=== PATIENT | male | born 1940 | race Caucasian/White ===

== ENCOUNTER 2018-02-08 12:58 | Emergency (ER) | payer MEDICARE, OTHER ==
[2018-02-08] MEDS ORDERED: Sodium Chloride 0.9% 10 ML Syringe FLUSH PRN (13:15)
[2018-02-08] MEDS ORDERED: Sodium Chloride 0.9% 2.5 ML Syringe FLUSH PRN (13:15)
--- NOTE | 2018-02-08 13:35 | EDM.PDOC ---
ED HPI GENERAL MEDICAL PROBLEM - General Chief Complaint: Abdominal Pain Stated Complaint: PAIN IN THE LOWER STOMACHE Time Seen by Provider: 02/08/18 13:05 Source of Information: Reports: Patient History Limitations: Reports: No Limitations - History of Present Illness INITIAL COMMENTS - FREE TEXT/NARRATIVE: HISTORY AND PHYSICAL: History of present illness: Patient is a 77-year-old male here with complaints of left lower abdominal pain that started this morning. He states the pain has since subsided, as he pushes on his left lower quadrant. This really sharp pain when his pressure on it. He reports he's been having to urinate more often today but only having a small amount of urination time. Denies any flank/back pain dysuria, hematuria. He denies any nausea, vomiting, diarrhea, melena, hematochezia, chest pain, shortness of breath. Review of systems: As per history of present illness and below otherwise all systems reviewed and negative. Past medical history: As per history of present illness and as reviewed below otherwise noncontributory. Surgical history: As per history of present illness and as reviewed below otherwise noncontributory. Social history: No reported history of drug or alcohol abuse. Family history: As per history of present illness and as reviewed below otherwise noncontributory. Physical exam: General: Patient sitting comfortably in no acute distress and nontoxic appearing HEENT: Atraumatic, normocephalic, pupils reactive, negative for conjunctival pallor or scleral icterus, mucous membranes moist, throat clear, neck supple, nontender, trachea midline. No meningeal signs. Lungs: Clear to auscultation, breath sounds equal bilaterally, chest nontender. Heart: S1S2, regular, negative for clicks, rubs, or overt murmur. Abdomen: There is a periumbilical hernia noted that is reducible. Tender to palpation of the left lower quadrant with deep palpation. Soft, nondistended. Negative for masses or hepatosplenomegaly. Negative for costovertebral tenderness. Pelvis: Stable nontender. Genitourinary: Deferred. Rectal: Deferred. Extremities: Atraumatic, negative for cords or calf pain. Neurovascular unremarkable. Neuro: Awake, alert, oriented. Cranial nerves II through XII unremarkable. Cerebellum unremarkable. Motor and sensory unremarkable throughout. Exam nonfocal. Notes: Diagnostics: CBC, CMP, Lipase, UA CT abdomen/pelvis Therapeutics: None Prescriptions: Ciprofloxacin 500mg Metronidazole 500mg Impression: Acute diverticulitis Plan: 1. Take antibiotics as directed. Tylenol or motrin as needed for pain. 2. Follow up with primary care provider 3. Return to ED as needed as discussed. Definitive disposition and diagnosis as appropriate pending reevaluation and review of above. Left Abdominal Pain Score (Numeric/FACES): 8 - Related Data Allergies Allergy/AdvReac Type Severity Reaction Status Date / Time No Known Allergies Allergy Verified 02/08/18 13:15 Home Meds: Home Meds Aspirin/Calcium Carbonate/Mag [Aspirin Buffered 325 mg Tab] 325 mg PO DAILY [History] Ciprofloxacin HCl [Cipro] 500 mg PO BID 10 Days #20 tablet 02/08/18 [Rx] metroNIDAZOLE [Metronidazole] 500 mg PO Q8H 10 Days #30 tablet 02/08/18 [Rx] Past Medical History - Past Health History Medical/Surgical History: Denies Medical/Surgical History - Infectious Disease History Infectious Disease History: Reports: None - Past Surgical History GI Surgical History: Reports: Appendectomy Other GI Surgeries/Procedures: 50+ years ago. Musculoskeletal Surgical History: Reports: Knee Replacement Social & Family History - Family History Family Medical History: Noncontributory - Tobacco Use Smoking Status *Q: Former Smoker Years of Tobacco use: 50 Used Tobacco, but Quit: Yes Month/Year Tobacco Last Used: 2012 - Caffeine Use Caffeine Use: Reports: None - Recreational Drug Use Recreational Drug Use: No ED ROS GENERAL - Review of Systems Review Of Systems: ROS reveals no pertinent complaints other than HPI. ED EXAM, GI/ABD - Physical Exam Exam: See Below (see dictation) Course - Vital Signs Last Recorded V/S: Last Vital Signs Temp 37.0 C 02/08/18 13:16 Pulse 73 02/08/18 14:48 Resp 18 02/08/18 14:48 BP 115/43 L 02/08/18 14:48 Pulse Ox 96 02/08/18 14:48 - Orders/Labs/Meds Orders: Active Orders 24 hr Category Date Time Status UA W/MICROSCOPIC [URIN] Stat Lab 02/08/18 13:30 Ordered Sodium Chloride 0.9% [Saline Flush] Med 02/08/18 13:15 Active 10 ml FLUSH ASDIRECTED PRN Sodium Chloride 0.9% [Saline Flush] Med 02/08/18 13:15 Active 2.5 ml FLUSH ASDIRECTED PRN Saline Lock Insert [OM.PC] Stat Oth 02/08/18 13:15 Ordered Medication Orders Sodium Chloride (Saline Flush) 10 ml FLUSH ASDIRECTED PRN PRN Reason: Keep Vein Open Last Admin: 02/08/18 13:40 Dose: 10 ml Sodium Chloride (Saline Flush) 2.5 ml FLUSH ASDIRECTED PRN PRN Reason: Keep Vein Open Last Admin: 02/08/18 13:40 Dose: 2.5 ml Labs: Laboratory Tests 02/08/18 02/08/18 02/08/18 Range/Units 13:30 13:42 13:42 WBC 12.67 H (4.0-11.0) K/uL RBC 4.56 (4.50-5.90) M/uL Hgb 14.9 (13.0-17.0) g/dL Hct 43.1 (38.0-50.0) % MCV 94.5 (80.0-98.0) fL MCH 32.7 H (27.0-32.0) pg MCHC 34.6 (31.0-37.0) g/dL RDW Std Deviation 45.5 (28.0-62.0) fl RDW Coeff of Ken 13 (11.0-15.0) % Plt Count 197 (150-400) K/uL MPV 9.40 (7.40-12.00) fL Neut % (Auto) 73.4 (48.0-80.0) % Lymph % (Auto) 13.1 L (16.0-40.0) % [place] % (Auto) 11.4 (0.0-15.0) % Eos % (Auto) 1.9 (0.0-7.0) % Baso % (Auto) 0.2 (0.0-1.5) % Neut # (Auto) 9.3 H (1.4-5.7) K/uL Lymph # (Auto) 1.7 (0.6-2.4) K/uL [place] # (Auto) 1.4 H (0.0-0.8) K/uL Eos # (Auto) 0.2 (0.0-0.7) K/uL Baso # (Auto) 0.0 (0.0-0.1) K/uL Nucleated RBC % 0.0 /100WBC Nucleated RBCs # 0 K/uL Sodium 135 L (136-148) mmol/L Potassium 4.3 (3.5-5.1) mmol/L Chloride 102 (98-107) mmol/L Carbon Dioxide 28.9 (21.0-32.0) mmol/L BUN 28 H (7.0-18.0) mg/dL Creatinine 2.0 H (0.8-1.3) mg/dL Est Cr Clr Drug Dosing 26.91 mL/min Estimated GFR (MDRD) 32.6 ml/min Glucose 96 (74-106) mg/dL Calcium 8.9 (8.5-10.1) mg/dL Total Bilirubin 1.0 (0.2-1.0) mg/dL AST 11 L (15-37) IU/L ALT 19 (14-63) IU/L Alkaline Phosphatase 60 (46-116) U/L Total Protein 7.6 (6.4-8.2) g/dL Albumin 3.8 (3.4-5.0) g/dL Globulin 3.8 H (2.0-3.5) g/dL Albumin/Globulin Ratio 1.0 L (1.3-2.8) Lipase 201 (73-393) U/L Urine Color YELLOW Urine Appearance CLEAR Urine pH 6.0 (5.0-8.0) Ur Specific [place] 1.020 (1.001-1.035) Urine Protein NEGATIVE (NEGATIVE) mg/dL Urine Glucose (UA) NEGATIVE (NEGATIVE) mg/dL Urine Ketones NEGATIVE (NEGATIVE) mg/dL Urine Occult Blood NEGATIVE (NEGATIVE) Urine Nitrite NEGATIVE (NEGATIVE) Urine Bilirubin NEGATIVE (NEGATIVE) Urine Urobilinogen 0.2 (<2.0) EU/dL Ur Leukocyte Esterase NEGATIVE (NEGATIVE) Urine RBC 1-2 (0-2/HPF) Urine WBC 3-5 (0-5/HPF) Ur Epithelial Cells OCCASIONAL (NONE-FEW) Urine Bacteria RARE (NEGATIVE) Meds: Medications Generic Name Dose Route Start Last Admin Trade Name Freq PRN Reason Stop Dose Admin Sodium Chloride 10 ml 02/08/18 13:15 02/08/18 13:40 Saline Flush FLUSH 10 ml ASDIRECTED PRN Administration Keep Vein Open Sodium Chloride 2.5 ml 02/08/18 13:15 02/08/18 13:40 Saline Flush FLUSH 2.5 ml ASDIRECTED PRN Administration Keep Vein Open Departure - Departure Time of Disposition: 15:08 Disposition: Home, Self-Care 01 Condition: Good Clinical Impression: Acute diverticulitis - Discharge Information Referrals: PCP,None [Primary Care Provider] - Forms: ED Department Discharge Additional Instructions: The following information is given to patients seen in the emergency department who are being discharged to home. This information is to outline your options for follow-up care. We provide all patients seen in our emergency department with a follow-up referral. The need for follow-up, as well as the timing and circumstances, are variable depending upon the specifics of your emergency department visit. If you don't have a primary care physician on staff, we will provide you with a referral. We always advise you to contact your personal physician following an emergency department visit to inform them of the circumstance of the visit and for follow-up with them and/or the need for any referrals to a consulting specialist. The emergency department will also refer you to a specialist when appropriate. This referral assures that you have the opportunity for follow-up care with a specialist. All of these measure are taken in an effort to provide you with optimal care, which includes your follow-up. Under all circumstances we always encourage you to contact your private physician who remains a resource for coordinating your care. When calling for follow-up care, please make the office aware that this follow-up is from your recent emergency room visit. If for any reason you are refused follow-up, please contact the Emergency Department at and asked to speak to the emergency department charge nurse. Primary Care [address] [place] [id number] 1. Take antibiotics as directed. Tylenol or motrin as needed for pain. 2. Follow up with primary care provider 3. Return to ED as needed as discussed. - My Orders Last 24 Hours: My Active Orders 02/08/18 13:15 Sodium Chloride 0.9% [Saline Flush] 10 ml FLUSH ASDIRECTED PRN Sodium Chloride 0.9% [Saline Flush] 2.5 ml FLUSH ASDIRECTED PRN Saline Lock Insert [OM.PC] Stat 02/08/18 13:30 UA W/MICROSCOPIC [URIN] Stat - Assessment/Plan Last 24 Hours: My Active Orders 02/08/18 13:15 Sodium Chloride 0.9% [Saline Flush] 10 ml FLUSH ASDIRECTED PRN Sodium Chloride 0.9% [Saline Flush] 2.5 ml FLUSH ASDIRECTED PRN Saline Lock Insert [OM.PC] Stat 02/08/18 13:30 UA W/MICROSCOPIC [URIN] Stat
[2018-02-08 14:50] VITALS: BP 115/43
--- NOTE | 2018-02-08 14:58 | CT ---
CT of the abdomen and pelvis without contrast. HISTORY: Pain TECHNIQUE: Axial CT images were obtained of the abdomen and pelvis without contrast. Coronal and sagi ttal reconstructions obtained. FINDINGS: The lung bases are clear, no pleural effusion. Mild coronary artery calcifications. The liver, spleen, adrenal glands, and pancreas appear unremarkable for noncontrast examination. The gallbladder appears normal. There is no bulky retroperitoneal lymphadenopathy. No abdominal ascites. Renal cortical cysts are noted bilaterally. There is a nonobstructing 4 mm stone within the left kidn ey. The large and small bowel are normal in caliber without evidence of obstruction. Diverticulosis is no shena with stranding adjacent to the sigmoid colon. There is no bulky pelvic lymphadenopathy. No free f luid. No free air. The urinary bladder appears normal. Tiny fat-containing umbilical hernia. The visualized osseous structures appear normal. IMPRESSION: 1. Sigmoid diverticulitis. 2. Nonobstructing left nephrolithiasis.
== END 2018-02-08 15:15 | disposition home or self-care (01) ==
LOC: MW.ED 12:58
DX: K57.92 Diverticulitis of intestine, part unspecified, without perforation or abscess without bleeding (principal); Z79.82 Long term (current) use of aspirin; Z87.891 Personal history of nicotine dependence
CPT/HCPCS: 36415; 74176; 74176-26; 80053; 81001; 83690; 85025; 99283-25

== ENCOUNTER 2020-11-23 16:48 | Inpatient (IN) | payer MEDICARE, OTHER ==
[2020-11-23] MEDS ORDERED: traMADol 50 MG Tab PO ONE (17:11)
--- NOTE | 2020-11-23 17:36 | EDM.PDOC ---
ED HPI GENERAL MEDICAL PROBLEM - General Chief Complaint: General Stated Complaint: FALL Time Seen by Provider: 11/23/20 16:51 Source of Information: Reports: Patient, Family History Limitations: Reports: No Limitations - History of Present Illness INITIAL COMMENTS - FREE TEXT/NARRATIVE: HISTORY AND PHYSICAL: History of present illness: Patient is an 80-year-old male who presents to the emergency room with complaints of left chest wall pain and bilateral shoulder pain post fall. Patient does live home alone. He states he became unbalanced and fell, hitting his left shoulder on the wall, became even more unsteady and then fell down to the ground. He denies hitting his head or having any loss of consciousness. He states he laid on the ground for 15 to 20 minutes as he was so short of breath from hitting his left chest wall that he could not get up. Once he was able to get up he was able to call his daughter who brought him here to the emergency room. Patient denies any fever, chills, headache, change in vision, syncope or near syncope. Denies any chest pain, back pain, shortness of breath or cough. Denies any abdominal pain, nausea, vomiting, diarrhea, constipation or dysuria. Has not noted any blood in urine or stool. Patient has been eating and drinking appropriately. Review of systems: As per history of present illness and below otherwise all systems reviewed and negative. Past medical history: As per history of present illness and as reviewed below otherwise noncontributory. Surgical history: As per history of present illness and as reviewed below otherwise noncontributory. Social history: See social history for further information Family history: As per history of present illness and as reviewed below otherwise noncontributory. Physical exam: General: Well developed and well nourished. Alert and orientated x 3. Nontoxic in appearance and in no acute distress. Blood pressure is elevated but will continue to monitor. Nursing notes were reviewed. HEENT: Nontender, no obvious injury noted, normocephalic, pupils equal and reactive bilaterally, negative for conjunctival pallor or scleral icterus, mucous membranes moist, TMs normal bilaterally, throat clear, neck supple, nontender, trachea midline. No drooling or trismus noted. No meningeal signs. No hot potato voice noted. Lungs: Clear to auscultation bilaterally. No wheezes, rales, or rhonchi. Chest tender to the left anterior and lateral chest wall. Normal work of breathing, no accessory muscles used. Heart: S1S2, regular rate and rhythm without overt murmur, gallops, or rubs. No JVD. No peripheral edema Abdomen: Soft, nondistended, nontender. Normoactive bowel sounds. Negative for masses or costovertebral tenderness. Pelvis: Stable nontender. C-spine/Back: No pinpoint vertebral tenderness upon palpation. No crepitus, step-offs or obvious deformities. Patient is ambulatory from wheelchair to cot without difficulty or deficit, normal variance of needing assistance or walker. Able to rock back on heels and walk on toes. Denies any urinary or fecal incontinence. Denies any numbness, tingling or saddle paresthesia. No concerns of serious infection, fracture or cord compression, or cauda equina syndrome. Deep tendon reflexes brisk bilaterally. Skin: Intact, warm, dry. No lesions or rashes noted. Hematologic: No petechiae or purpra. Mucosa appropriate color and normal nail bed color and refill. Extremities: Pain with palpation of bilateral shoulder girdle. He moves all extremities per self without difficulty or deficits, negative for cords or calf pain. Strong pedal, pretibial and radial pulses bilaterally. +CMS throughout. Neurovascular unremarkable. Neuro: Awake, alert, oriented. Cranial nerves II through XII unremarkable. Cerebellum unremarkable. Motor and sensory unremarkable throughout. Exam nonfocal. Psychiatric: Mood and affect are appropriate. Normal thought process. Answering questions appropriately. Notes: *This patient was seen and evaluated during the 2019 SARS-CoV-2 novel coronavirus pandemic period. Community viral transmission is ongoing at time of this encounter and the emergency department is operating under pandemic response procedures. Patient is an 80-year-old male who presents to the emergency room after a fall with complaints of left rib pain and bilateral shoulder pain. During my physical exam he has tenderness with palpation of bilateral shoulder girdles although has full range of motion. He states he does have chronic shoulder pain although feels that it is worse after the fall. He also has left lateral and anterior chest wall pain with palpation, deep breathing and movement. He is concerned he has fractured ribs. Events leading up to the fall, during the fall and after the fall he states he did not have any chest pain, states he became unbalanced resulting in the fall. Please note that the patient does live alone, he does require assistance x2 to get up from the wheelchair although has good balance and ambulation some once he is up. States he feels unsteady on his feet. He is agreeable to basic lab work, EKG and imaging at this time. Chest x-ray shows no displaced left rib fractures. Lungs are clear. No infiltrate, pleural effusion or pneumothorax is identified. Left and right shoulder are unremarkable, degenerative changes are identified. Head CT shows diffuse volume loss. Changes of chronic small vessel ischemia. Patient does have slightly elevated BUN/creatinine. Pain has improved with the oral tramadol. I have talked with the patient about today's findings, in addition to providing specific details for plan of care. Reassessment at the time of disposition demonstrates that the patient is in no acute distress. The daughter at bedside and patient states they are uncomfortable with being discharged home as he has an managed pain with any type of movement involving the torso. Dr Hamilton, hospitalist on-call was made aware of the patient and is agreeable to keeping him for observation. Due to the unclear statement of how or why the patient fell we will place him on telemetry. Diagnostics: Head CT, Rib x-ray, bilateral shoulder Therapeutics: Tramadol, NS 500ml bolus then TKO Impression: Fall Rib contusion Hypertension Plan: Observation admission Definitive disposition and diagnosis as appropriate pending reevaluation and review of above. left ribs/shoulder Pain Score (Numeric/FACES): 9 - Related Data Allergies Allergy/AdvReac Type Severity Reaction Status Date / Time No Known Allergies Allergy Verified 11/23/20 17:04 Home Meds: Home Meds Ibuprofen [Advil] 1 tab PO ASDIRECTED PRN 11/23/20 [History] Past Medical History - Past Health History Medical/Surgical History: Denies Medical/Surgical History HEENT History: Reports: None Cardiovascular History: Reports: None Respiratory History: Reports: None Gastrointestinal History: Reports: None Genitourinary History: Reports: None Musculoskeletal History: Reports: None Neurological History: Reports: None Psychiatric History: Reports: None Endocrine/Metabolic History: Reports: None Hematologic History: Reports: None Immunologic History: Reports: None Oncologic (Cancer) History: Reports: None Dermatologic History: Reports: None - Infectious Disease History Infectious Disease History: Reports: None - Past Surgical History HEENT Surgical History: Reports: None Cardiovascular Surgical History: Reports: None Respiratory Surgical History: Reports: None GI Surgical History: Reports: Appendectomy Other GI Surgeries/Procedures: 50+ years ago. Male Surgical History: Reports: None Endocrine Surgical History: Reports: None Neurological Surgical History: Reports: None Musculoskeletal Surgical History: Reports: Other (See Below) Other Musculoskeletal Surgeries/Procedures:: knee scope Oncologic Surgical History: Reports: None Dermatological Surgical History: Reports: None Social & Family History - Family History Family Medical History: No Pertinent Family History - Tobacco Use Tobacco Use Status *Q: Former Tobacco User Used Tobacco, but Quit: Yes Month/Year Tobacco Last Used: 30 - Caffeine Use Caffeine Use: Reports: None - Recreational Drug Use Recreational Drug Use: No ED ROS GENERAL - Review of Systems Review Of Systems: Comprehensive ROS is negative, except as noted in HPI. ED EXAM, GENERAL - Physical Exam Exam: See Below (See dictation) Course - Vital Signs Last Recorded V/S: Last Vital Signs Temp 97.1 F 11/23/20 17:06 Pulse 102 H 11/23/20 19:39 Resp 16 11/23/20 19:39 BP 171/108 H 11/23/20 19:39 Pulse Ox 93 L 11/23/20 19:39 - Orders/Labs/Meds Orders: Active Orders 24 hr Category Date Time Status EKG Documentation Completion [RC] STAT Care 11/23/20 17:02 Active Medication Orders Acetaminophen (Acetaminophen 325 Mg Tab) 650 mg PO Q4H PRN PRN Reason: Pain (Mild 1-3)/fever Albuterol/Ipratropium (Albuterol/Ipratropium 3.0-0.5 Mg/3 Ml Neb Soln) 3 ml NEB Q4HRRT PRN PRN Reason: Shortness Of Breath/wheezing Amlodipine Besylate (Amlodipine 5 Mg Tab) 5 mg PO DAILY EDU Sodium Chloride (Normal Saline) 1,000 mls @ 999 mls/hr IV STAT ONE Stop: 11/23/20 20:40 Lactated Ringer's (Ringers, Lactated) 1,000 mls @ 125 mls/hr IV ASDIRECTED EDU Ondansetron HCl (Ondansetron 4 Mg/2 Ml Sdv) 4 mg IVPUSH Q4H PRN PRN Reason: Nausea/Vomiting Labs: Laboratory Tests 11/23/20 11/23/20 11/23/20 Range/Units 17:14 17:14 19:13 WBC 12.51 H (4.0-11.0) K/uL RBC 4.56 (4.50-5.90) M/uL Hgb 14.7 (13.0-17.0) g/dL Hct 44.0 (38.0-50.0) % MCV 96.5 (80.0-98.0) fL MCH 32.2 H (27.0-32.0) pg MCHC 33.4 (31.0-37.0) g/dL RDW Std Deviation 48.5 (28.0-62.0) fl RDW Coeff of Ken 14 (11.0-15.0) % Plt Count 215 (150-400) K/uL MPV 9.60 (7.40-12.00) fL Neut % (Auto) 81.0 H (48.0-80.0) % Lymph % (Auto) 9.5 L (16.0-40.0) % [place] % (Auto) 8.2 (0.0-15.0) % Eos % (Auto) 1.1 (0.0-7.0) % Baso % (Auto) 0.2 (0.0-1.5) % Neut # (Auto) 10.1 H (1.4-5.7) K/uL Lymph # (Auto) 1.2 (0.6-2.4) K/uL [place] # (Auto) 1.0 H (0.0-0.8) K/uL Eos # (Auto) 0.1 (0.0-0.7) K/uL Baso # (Auto) 0.0 (0.0-0.1) K/uL Sodium 141 (136-148) mmol/L Potassium 4.2 (3.5-5.1) mmol/L Chloride 106 (98-107) mmol/L Carbon Dioxide 27.5 (21.0-32.0) mmol/L BUN 27 H (7.0-18.0) mg/dL Creatinine 2.0 H (0.8-1.3) mg/dL Est Cr Clr Drug Dosing 25.63 mL/min Estimated GFR (MDRD) 32.3 ml/min Glucose 143 H (74-106) mg/dL Calcium 9.5 (8.5-10.1) mg/dL Total Bilirubin 0.4 (0.2-1.0) mg/dL AST 17 (15-37) IU/L ALT 18 (14-63) IU/L Alkaline Phosphatase 68 (46-116) U/L Troponin I < 0.050 (0.000-0.056) ng/mL Total Protein 7.4 (6.4-8.2) g/dL Albumin 3.9 (3.4-5.0) g/dL Globulin 3.5 (2.6-4.0) g/dL Albumin/Globulin Ratio 1.1 (0.9-1.6) SARS-CoV-2 RNA ([facility]LALI) NEGATIVE (NEGATIVE) Meds: Medications Generic Name Dose Route Start Last Admin Trade Name [place] PRN Reason Stop Dose Admin Acetaminophen 650 mg 11/23/20 19:47 Acetaminophen 325 Mg Tab PO Q4H PRN Pain (Mild 1-3)/fever Albuterol/Ipratropium 3 ml 11/23/20 19:47 Albuterol/Ipratropium 3.0-0.5 Mg/3 Ml Neb Soln NEB Q4HRRT PRN Shortness Of Breath/wheezing Amlodipine Besylate 5 mg 11/23/20 20:00 Amlodipine 5 Mg Tab PO DAILY [facility] Sodium Chloride 1,000 mls @ 999 mls/hr 11/23/20 19:40 Normal Saline IV 11/23/20 20:40 STAT ONE Lactated Ringer's 1,000 mls @ 125 mls/hr 11/23/20 20:00 Ringers, Lactated IV ASDIRECTED [facility] Ondansetron HCl 4 mg 11/23/20 19:47 Ondansetron 4 Mg/2 Ml Sdv IVPUSH Q4H PRN Nausea/Vomiting Discontinued Medications Generic Name Dose Route Start Last Admin Trade Name Freq PRN Reason Stop Dose Admin Ketorolac Tromethamine 30 mg 11/23/20 19:46 Ketorolac 30 Mg/Ml Sdv IVPUSH 11/23/20 19:47 ONETIME ONE Tramadol HCl 50 mg 11/23/20 17:11 11/23/20 17:50 Tramadol 50 Mg Tab PO 11/23/20 17:12 50 mg ONETIME ONE Administration Departure - Departure Time of Disposition: 20:18 Disposition: Refer to Observation Clinical Impression: Fall Qualifiers: Encounter type: initial encounter Qualified Code(s): W19.XXXA - Unspecified fall, initial encounter Contusion of rib on left side Qualifiers: Encounter type: initial encounter Qualified Code(s): S20.212A - Contusion of left front wall of thorax, initial encounter Hypertension Qualifiers: Hypertension type: unspecified Qualified Code(s): I10 - Essential (primary) hypertension - Discharge Information Sepsis Event Note (ED) - Evaluation Sepsis Screening Result: No Definite Risk - Focused Exam Vital Signs: Vital Signs Temp Pulse Resp BP Pulse Ox 11/23/20 17:06 97.1 F 73 18 198/112 H 95 - My Orders Last 24 Hours: My Active Orders 11/23/20 17:02 EKG Documentation Completion [RC] STAT - Assessment/Plan Last 24 Hours: My Active Orders 11/23/20 17:02 EKG Documentation Completion [RC] STAT
[2020-11-23 17:40] LABS: BLOOD UREA NITROGEN,BUN 27 mg/dL (7.0-18.0); CARBON DIOXIDE,CO2 27.5 mmol/L (21.0-32.0); CHLORIDE,CL 106 mmol/L (98-107); GLUCOSE RANDOM 143 mg/dL (74-106); POTASSIUM,K 4.2 mmol/L (3.5-5.1); SODIUM,NA 141 mmol/L (136-148)
--- NOTE | 2020-11-23 18:41 | CR ---
Indication: Fall. Shoulder pain. Technique: Two views of the left shoulder. Comparison: None Findings: The humeral head is seated within the glenoid. Degenerative changes are identified. No fracture or subluxation is identified. Impression: Degenerative change. Dictated by Rachna Costa MD @ 11/23/2020 6:40:[address] Rachna Costa @ Nov 23 2020 6:40PM
--- NOTE | 2020-11-23 18:41 | CR ---
Indication: Left-sided rib pain. Technique: AP portable view of the chest. Two views of the left ribs. Comparison: None Findings: The heart is normal in size. The lungs are clear. No infiltrate, pleural effusion, or pneumothorax is identified. No displaced left rib fractures are identified. Impression: No displaced left rib fractures. No acute cardiopulmonary process Dictated by Rachna Costa MD @ 11/23/2020 6:39:[address] Rachna Costa @ Nov 23 2020 6:39PM
--- NOTE | 2020-11-23 18:42 | CR ---
Indication: Right shoulder pain. Technique: Two views of the right shoulder. Comparison: None Findings: The humeral head is seated within the glenoid. Degenerative changes are identified at the acromioclavicular and glenohumeral joint spaces. No fracture or subluxation is identified. Impression: Degenerative change. Dictated by Rachna Costa MD @ 11/23/2020 6:40:[address] Rachna Costa @ Nov 23 2020 6:40PM
--- NOTE | 2020-11-23 19:15 | CT ---
Indication: Fell to the ground. Near-syncope. Technique: Multiple contiguous axial images were obtained from the skullbase to the vertex without intravenous contrast enhancement. Please note that all CT scans at this facility use dose modulation, iterative reconstruction, and/or weight-based dosing when appropriate to reduce radiation dose to as low as reasonably achievable. Comparison: None Findings: Ventricles are enlarged consistent with the sizes sulci. Confluent areas of low attenuation identified within the periventricular white matter. No intra-axial or extra-axial hemorrhage is identified. No mass, mass effect, or midline shift is seen. The bony calvarium is intact. The visualized paranasal sinuses and mastoid air cells are clear. Impression: Diffuse volume loss. Changes of chronic small vessel ischemia. Please note that all CT scans at this facility use dose modulation, iterative reconstruction, and/or weight-based dosing when appropriate to reduce radiation dose to as low as reasonably achievable. Dictated by Rachna Costa MD @ 11/23/2020 7:14:[address] Rachna Costa @ Nov 23 2020 7:14PM
[2020-11-23] MEDS ORDERED: Sodium Chloride 0.9% 1,000 ML IV ONE (19:40)
[2020-11-23] MEDS ORDERED: Ketorolac 30 MG/ML SDV IVPUSH ONE (19:46)
[2020-11-23] MEDS ORDERED: Albuterol/Ipratropium 3.0-0.5 MG/3 ML Neb Soln NEB PRN (19:47)
[2020-11-23] MEDS ORDERED: Ondansetron 4 MG/2 ML SDV IVPUSH PRN (19:47)
--- NOTE | 2020-11-23 20:12 | PCM.HP.2 ---
H&P History of Present Illness - General Date of Service: 11/23/20 Admit Problem/Dx: Admission Diagnosis/Problem Admission Diagnosis/Problem Fall - History of Present Illness Initial Comments - Free Text/Narative: Patient is an 80-year-old male with past medical history of CKD, recent history of cataract surgery 3 days back in his right eye, who presents to the emergency room with complaints of left upper back pain and bilateral shoulder pain post fall. Patient states that he was unsteady on his feet and as a result he lost his balance and fell against a wall and then fell to the ground. Patient states that he could not call for help because his phone was not working. Patient not exactly sure at what time he fell and if he fell today or yesterday, seems to be slightly confused but otherwise is alert awake. Patient states that he underwent cataract surgery 3 days back and he has not had really much to eat or drink since last 2 days. Patient lives alone by himself. Patient was eventually brought to the ER by his daughter. Patient denied any chest pain shortness of breath Patient denies any fever, chills, headache, change in vision, syncope or near syncope. Denies any abdominal pain, nausea, vomiting, diarrhea, constipation or dysuria. Has not noted any blood in urine or stool. In the ER x-ray of the chest and shoulders was performed which did not show any acute fractures. CT of the head was negative for any intracranial bleed as well. Patient continued to have pain and was not comfortable going home by himself and was admitted for further management. left ribs/shoulder Pain Score (Numeric/FACES): 9 - Related Data Allergies/Adverse Reactions: Allergies Allergy/AdvReac Type Severity Reaction Status Date / Time No Known Allergies Allergy Verified 11/23/20 21:41 Home Medications: Home Meds Ibuprofen [Advil] 1 tab PO ASDIRECTED PRN 11/23/20 [History] Past Medical History - Past Health History Medical/Surgical History: Denies Medical/Surgical History HEENT History: Reports: None Cardiovascular History: Reports: None Respiratory History: Reports: None Gastrointestinal History: Reports: None Genitourinary History: Reports: None Musculoskeletal History: Reports: None Neurological History: Reports: None Psychiatric History: Reports: None Endocrine/Metabolic History: Reports: None Hematologic History: Reports: None Immunologic History: Reports: None Oncologic (Cancer) History: Reports: None Dermatologic History: Reports: None - Infectious Disease History Infectious Disease History: Reports: None - Past Surgical History HEENT Surgical History: Reports: None Cardiovascular Surgical History: Reports: None Respiratory Surgical History: Reports: None GI Surgical History: Reports: Appendectomy Other GI Surgeries/Procedures: 50+ years ago. Male Surgical History: Reports: None Endocrine Surgical History: Reports: None Neurological Surgical History: Reports: None Musculoskeletal Surgical History: Reports: Other (See Below) Other Musculoskeletal Surgeries/Procedures:: knee scope Oncologic Surgical History: Reports: None Dermatological Surgical History: Reports: None Social & Family History - Family History Family Medical History: No Pertinent Family History - Tobacco Use Tobacco Use Status *Q: Former Tobacco User Used Tobacco, but Quit: Yes Month/Year Tobacco Last Used: 30 - Caffeine Use Caffeine Use: Reports: None - Recreational Drug Use Recreational Drug Use: No H&P Review of Systems - Review of Systems: Review Of Systems: See Below General: Reports: Malaise, Weakness, Fatigue. Denies: Fever, Chills Pulmonary: Denies: Shortness of Breath, Wheezing, Pleuritic Chest Pain Cardiovascular: Reports: Lightheadedness. Denies: Chest Pain, Palpitations, Dyspnea on Exertion, Syncope, Claudication Gastrointestinal: Denies: Abdominal Pain, Anorexia, Black Stool, Bloody Stool, Diarrhea, Decreased Appetite, Difficulty Swallowing, Hematemesis, Hematochezia Genitourinary: Denies: Dysuria, Frequency, Burning Musculoskeletal: Denies: Neck Pain, Shoulder Pain, Arm Pain Skin: Reports: Dryness. Denies: Cyanosis, Jaundice Exam - Exam Exam: See Below - Vital Signs Vital Signs: Last Vital Signs Temp 36.2 C 11/23/20 17:06 Pulse 102 H 11/23/20 19:39 Resp 16 11/23/20 19:39 BP 171/108 H 11/23/20 19:39 Pulse Ox 93 L 11/23/20 19:39 Weight: 71.214 kg - Exam General: Alert, Oriented Neck: Supple, Trachea Midline Lungs: Clear to Auscultation Cardiovascular: Regular Rate, Regular Rhythm, Normal S1, Normal S2 GI/Abdominal Exam: Normal Bowel Sounds, Soft, Non-Tender - Patient Data Lab Results Last 24 hrs: Laboratory Results - last 24 hr 11/23/20 11/23/20 11/23/20 Range/Units 17:14 17:14 19:13 WBC 12.51 H (4.0-11.0) K/uL RBC 4.56 (4.50-5.90) M/uL Hgb 14.7 (13.0-17.0) g/dL Hct 44.0 (38.0-50.0) % MCV 96.5 (80.0-98.0) fL MCH 32.2 H (27.0-32.0) pg MCHC 33.4 (31.0-37.0) g/dL RDW Std Deviation 48.5 (28.0-62.0) fl RDW Coeff of Ken 14 (11.0-15.0) % Plt Count 215 (150-400) K/uL MPV 9.60 (7.40-12.00) fL Neut % (Auto) 81.0 H (48.0-80.0) % Lymph % (Auto) 9.5 L (16.0-40.0) % Barber % (Auto) 8.2 (0.0-15.0) % Eos % (Auto) 1.1 (0.0-7.0) % Baso % (Auto) 0.2 (0.0-1.5) % Neut # (Auto) 10.1 H (1.4-5.7) K/uL Lymph # (Auto) 1.2 (0.6-2.4) K/uL Barber # (Auto) 1.0 H (0.0-0.8) K/uL Eos # (Auto) 0.1 (0.0-0.7) K/uL Baso # (Auto) 0.0 (0.0-0.1) K/uL Sodium 141 (136-148) mmol/L Potassium 4.2 (3.5-5.1) mmol/L Chloride 106 (98-107) mmol/L Carbon Dioxide 27.5 (21.0-32.0) mmol/L BUN 27 H (7.0-18.0) mg/dL Creatinine 2.0 H (0.8-1.3) mg/dL Est Cr Clr Drug Dosing 25.63 mL/min Estimated GFR (MDRD) 32.3 ml/min Glucose 143 H (74-106) mg/dL Calcium 9.5 (8.5-10.1) mg/dL Total Bilirubin 0.4 (0.2-1.0) mg/dL AST 17 (15-37) IU/L ALT 18 (14-63) IU/L Alkaline Phosphatase 68 (46-116) U/L Troponin I < 0.050 (0.000-0.056) ng/mL Total Protein 7.4 (6.4-8.2) g/dL Albumin 3.9 (3.4-5.0) g/dL Globulin 3.5 (2.6-4.0) g/dL Albumin/Globulin Ratio 1.1 (0.9-1.6) SARS-CoV-2 RNA (CITLALI) NEGATIVE (NEGATIVE) Result Diagrams: 11/23/20 17:14 11/23/20 17:14 Sepsis Event Note - Evaluation Sepsis Screening Result: No Definite Risk - Focused Exam Vital Signs: Vital Signs Temp Pulse Resp BP Pulse Ox 11/23/20 19:39 102 H 16 171/108 H 93 L 11/23/20 17:06 36.2 C 73 18 198/112 H 95 - Problem List (1) Contusion of rib on left side SNOMED Code(s): 828687049 ICD Code: S20.212A - CONTUSION OF LEFT FRONT WALL OF THORAX, INITIAL ENCOUNTER Status: Acute Current Visit: Yes Qualifiers: Encounter type: initial encounter Qualified Code(s): S20.212A - Contusion of left front wall of thorax, initial encounter (2) Fall SNOMED Code(s): 5096752, 517586768 ICD Code: W19.XXXA - UNSPECIFIED FALL, INITIAL ENCOUNTER Status: Acute Current Visit: Yes Qualifiers: Encounter type: initial encounter Qualified Code(s): W19.XXXA - Unspecified fall, initial encounter (3) Hypertension SNOMED Code(s): 11921072 ICD Code: I10 - ESSENTIAL (PRIMARY) HYPERTENSION Status: Acute Current Visit: Yes Qualifiers: Hypertension type: unspecified Qualified Code(s): I10 - Essential (primary) hypertension (4) CKD (chronic kidney disease) SNOMED Code(s): 266795408 ICD Code: N18.9 - CHRONIC KIDNEY DISEASE, UNSPECIFIED Status: Acute Current Visit: Yes Problem List Initiated/Reviewed/Updated: Yes Orders Last 24hrs: Active Orders 24 hr Category Date Time Status Admission Status [Patient Status] [ADT] Stat ADT 11/23/20 19:38 Active Ambulate [RC] ASDIRECTED Care 11/23/20 19:47 Active Antiembolic Devices [RC] PER UNIT ROUTINE Care 11/23/20 19:48 Active EKG Documentation Completion [RC] STAT Care 11/23/20 17:02 Active Oxygen Therapy [RC] PRN Care 11/23/20 19:47 Active RT Aerosol Therapy [RC] ASDIRECTED Care 11/23/20 19:48 Active VTE/DVT Education [RC] PER UNIT ROUTINE Care 11/23/20 19:47 Active Vital Signs [RC] Q4H Care 11/23/20 19:47 Active Heart Healthy Diet [DIET] Diet 11/24/20 Breakfast Active BMP [BASIC METABOLIC PANEL,BMP] [CHEM] AM Lab 11/24/20 05:11 Ordered CBC WITH AUTO DIFF [HEME] AM Lab 11/24/20 05:11 Ordered GLYCOSYLATED HEMOGLOBIN,HGBA1C [CHEM] Stat Lab 11/23/20 20:10 Ordered LIPID PANEL [CHEM] Stat Lab 11/23/20 20:10 Ordered MAGNESIUM [CHEM] AM Lab 11/24/20 05:11 Ordered PHOSPHORUS [CHEM] AM Lab 11/24/20 05:11 Ordered TSH [CHEM] Stat Lab 11/23/20 20:10 Ordered Acetaminophen [TylenoL] Med 11/23/20 19:47 Active 650 mg PO Q4H PRN Albuterol/Ipratropium [DuoNeb 3.0-0.5 MG/3 ML] Med 11/23/20 19:47 Active 3 ml NEB Q4HRRT PRN Lactated Ringers [Ringers, Lactated] 1,000 ml Med 11/23/20 20:00 Active IV ASDIRECTED Ondansetron [Zofran] Med 11/23/20 19:47 Active 4 mg IVPUSH Q4H PRN Sodium Chloride 0.9% [Normal Saline] 1,000 ml Med 11/23/20 19:40 Active IV STAT amLODIPine [Norvasc] Med 11/23/20 20:00 Active 5 mg PO DAILY Sequential Compression Device [OM.PC] Per Unit Routine Oth 11/23/20 19:47 Ordered Medication Orders Acetaminophen (Acetaminophen 325 Mg Tab) 650 mg PO Q4H PRN PRN Reason: Pain (Mild 1-3)/fever Albuterol/Ipratropium (Albuterol/Ipratropium 3.0-0.5 Mg/3 Ml Neb Soln) 3 ml NEB Q4HRRT PRN PRN Reason: Shortness Of Breath/wheezing Amlodipine Besylate (Amlodipine 5 Mg Tab) 5 mg PO DAILY EDU Sodium Chloride (Normal Saline) 1,000 mls @ 999 mls/hr IV STAT ONE Stop: 11/23/20 20:40 Lactated Ringer's (Ringers, Lactated) 1,000 mls @ 125 mls/hr IV ASDIRECTED EDU Ondansetron HCl (Ondansetron 4 Mg/2 Ml Sdv) 4 mg IVPUSH Q4H PRN PRN Reason: Nausea/Vomiting Assessment/Plan Comment:: 80-year-old male admitted status post fall for management of pain and possible syncope although patient denies syncope but had reported previously to his daughter Patient looks very dry on exam, will start on IV fluids for hydration, dehydration likely secondary to decreased p.o. intake from last 2 days Patient's creatinine seems to be at baseline, patient is not sure why he has CKD but he did have high blood pressures in the ER Patient denies any history of high blood pressure in the past and is not on any medications DuoNebs as needed for shortness of breath Will monitor and replete electrolytes as needed For pain control will start patient on Tylenol, received IV Toradol and oral tramadol in the ER We will check urine analysis We will check TSH, hemoglobin A1c, lipid panel We will start low-dose amlodipine for her blood pressure We will continue to monitor closely
[2020-11-23] MEDS: amLODIPine 5 MG Tab PO SCH (20:19)
[2020-11-23 20:41] LABS: HEMOGLOBIN A1C 5.6 %
[2020-11-23] MEDS: Lactated Ringers 1,000 ML IV SCH (21:43)
[2020-11-23] MEDS: Acetaminophen 325 MG Tab PO PRN (21:47)
[2020-11-23] MEDS ORDERED: Labetalol 100 MG/20 ML MDV IVPUSH PRN (23:21)
[2020-11-24] MEDS: Lidocaine 5% 700 MG Patch TRDERM SCH ×2 (00:33→23:03)
[2020-11-24] MEDS: Acetaminophen 325 MG Tab PO PRN ×4 (03:55→18:35)
[2020-11-24] MEDS: Tamsulosin 0.4 MG Cap.ER PO SCH ×3 (06:26→17:28)
[2020-11-24] MEDS: Lactated Ringers 1,000 ML IV SCH ×3 (06:26→23:24)
[2020-11-24 07:20] LABS: CARBON DIOXIDE,CO2 22.5 mmol/L (21.0-32.0); POTASSIUM,K 4.2 mmol/L (3.5-5.1)
[2020-11-24] MEDS: amLODIPine 5 MG Tab PO SCH (08:28)
--- NOTE | 2020-11-24 10:12 | PCM.PN ---
<Amarilys Ayon - Last Filed: 11/24/20 12:36> - General Info Date of Service: 11/24/20 Admission Dx/Problem (Free Text): Admission Diagnosis/Problem Admission Diagnosis/Problem Fall Subjective Update: 80-year-old male with past medical history of CKD, recently had cataract surgery of the right eye, had not been eating much or drinking much since. Patient came into the ED status post fall causing him left upper back pain, bilateral shoulder pain. All imaging studies demonstrated no acute fractures. There were no overnight events. Functional Status: Reports: Urinating - Review of Systems General: Reports: No Symptoms HEENT: Reports: No Symptoms Pulmonary: Reports: No Symptoms Cardiovascular: Reports: No Symptoms Gastrointestinal: Reports: No Symptoms Genitourinary: Reports: No Symptoms Musculoskeletal: Reports: Shoulder Pain, Back Pain Skin: Reports: No Symptoms Neurological: Reports: No Symptoms Psychiatric: Reports: No Symptoms - Patient Data Vitals - Most Recent: Last Vital Signs Temp 97.2 F 11/24/20 07:30 Pulse 68 11/24/20 07:30 Resp 17 11/24/20 07:30 BP 172/89 H 11/24/20 08:28 Pulse Ox 95 11/24/20 07:30 Weight - Most Recent: 68.991 kg I&O - Last 24 Hours: Intake & Output 11/23/20 11/24/20 11/24/20 22:59 06:59 14:59 Intake Total 936 Output Total 17 Balance 76F Lab Results Last 24 Hours: Laboratory Results - last 24 hr 11/23/20 11/23/20 11/23/20 Range/Units 17:14 17:14 17:14 WBC 12.51 H (4.0-11.0) K/uL RBC 4.56 (4.50-5.90) M/uL Hgb 14.7 (13.0-17.0) g/dL Hct 44.0 (38.0-50.0) % MCV 96.5 (80.0-98.0) fL MCH 32.2 H (27.0-32.0) pg MCHC 33.4 (31.0-37.0) g/dL RDW Std Deviation 48.5 (28.0-62.0) fl RDW Coeff of Ken 14 (11.0-15.0) % Plt Count 215 (150-400) K/uL MPV 9.60 (7.40-12.00) fL Neut % (Auto) 81.0 H (48.0-80.0) % Lymph % (Auto) 9.5 L (16.0-40.0) % [place] % (Auto) 8.2 (0.0-15.0) % Eos % (Auto) 1.1 (0.0-7.0) % Baso % (Auto) 0.2 (0.0-1.5) % Neut # (Auto) 10.1 H (1.4-5.7) K/uL Lymph # (Auto) 1.2 (0.6-2.4) K/uL [place] # (Auto) 1.0 H (0.0-0.8) K/uL Eos # (Auto) 0.1 (0.0-0.7) K/uL Baso # (Auto) 0.0 (0.0-0.1) K/uL Nucleated RBC % /100WBC Nucleated RBCs # K/uL Sodium 141 (136-148) mmol/L Potassium 4.2 (3.5-5.1) mmol/L Chloride 106 (98-107) mmol/L Carbon Dioxide 27.5 (21.0-32.0) mmol/L BUN 27 H (7.0-18.0) mg/dL Creatinine 2.0 H (0.8-1.3) mg/dL Est Cr Clr Drug Dosing 25.63 mL/min Estimated GFR (MDRD) 32.3 ml/min Glucose 143 H (74-106) mg/dL Hemoglobin A1c (4.5 - 6.2) % Calcium 9.5 (8.5-10.1) mg/dL Phosphorus (2.6-4.7) mg/dL Magnesium (1.8-2.4) mg/dL Total Bilirubin 0.4 (0.2-1.0) mg/dL AST 17 (15-37) IU/L ALT 18 (14-63) IU/L Alkaline Phosphatase 68 (46-116) U/L Troponin I < 0.050 (0.000-0.056) ng/mL Total Protein 7.4 (6.4-8.2) g/dL Albumin 3.9 (3.4-5.0) g/dL Globulin 3.5 (2.6-4.0) g/dL Albumin/Globulin Ratio 1.1 (0.9-1.6) Triglycerides 65 (0-200) mg/dL Cholesterol 137 (50-200) mg/dL LDL Cholesterol, Calc 67 (60-180) mg/dL VLDL Cholesterol 13 (5-55) mg/dL HDL Cholesterol 57 (40-60) mg/dL Cholesterol/HDL Ratio 2.4 L (3.3-6.0) TSH 3rd Generation 1.57 (0.36-3.74) uIU/mL Urine Color Urine Appearance Urine pH (5.0-8.0) Ur Specific [place] (1.001-1.035) Urine Protein (NEGATIVE) mg/dL Urine Glucose (UA) (NEGATIVE) mg/dL Urine Ketones (NEGATIVE) mg/dL Urine Occult Blood (NEGATIVE) Urine Nitrite (NEGATIVE) Urine Bilirubin (NEGATIVE) Urine Urobilinogen (<2.0) EU/dL Ur Leukocyte Esterase (NEGATIVE) SARS-CoV-2 RNA (CITLALI) (NEGATIVE) 11/23/20 11/23/20 11/24/20 Range/Units 17:14 19:13 01:05 WBC (4.0-11.0) K/uL RBC (4.50-5.90) M/uL Hgb (13.0-17.0) g/dL Hct (38.0-50.0) % MCV (80.0-98.0) fL MCH (27.0-32.0) pg MCHC (31.0-37.0) g/dL RDW Std Deviation (28.0-62.0) fl RDW Coeff of Ken (11.0-15.0) % Plt Count (150-400) K/uL MPV (7.40-12.00) fL Neut % (Auto) (48.0-80.0) % Lymph % (Auto) (16.0-40.0) % [place] % (Auto) (0.0-15.0) % Eos % (Auto) (0.0-7.0) % Baso % (Auto) (0.0-1.5) % Neut # (Auto) (1.4-5.7) K/uL Lymph # (Auto) (0.6-2.4) K/uL [place] # (Auto) (0.0-0.8) K/uL Eos # (Auto) (0.0-0.7) K/uL Baso # (Auto) (0.0-0.1) K/uL Nucleated RBC % /100WBC Nucleated RBCs # K/uL Sodium (136-148) mmol/L Potassium (3.5-5.1) mmol/L Chloride (98-107) mmol/L Carbon Dioxide (21.0-32.0) mmol/L BUN (7.0-18.0) mg/dL Creatinine (0.8-1.3) mg/dL Est Cr Clr Drug Dosing mL/min Estimated GFR (MDRD) ml/min Glucose (74-106) mg/dL Hemoglobin A1c 5.6 (4.5 - 6.2) % Calcium (8.5-10.1) mg/dL Phosphorus (2.6-4.7) mg/dL Magnesium (1.8-2.4) mg/dL Total Bilirubin (0.2-1.0) mg/dL AST (15-37) IU/L ALT (14-63) IU/L Alkaline Phosphatase (46-116) U/L Troponin I (0.000-0.056) ng/mL Total Protein (6.4-8.2) g/dL Albumin (3.4-5.0) g/dL Globulin (2.6-4.0) g/dL Albumin/Globulin Ratio (0.9-1.6) Triglycerides (0-200) mg/dL Cholesterol (50-200) mg/dL LDL Cholesterol, Calc (60-180) mg/dL VLDL Cholesterol (5-55) mg/dL HDL Cholesterol (40-60) mg/dL Cholesterol/HDL Ratio (3.3-6.0) TSH 3rd Generation (0.36-3.74) uIU/mL Urine Color YELLOW Urine Appearance CLEAR Urine pH 5.5 (5.0-8.0) Ur Specific [place] 1.025 (1.001-1.035) Urine Protein NEGATIVE (NEGATIVE) mg/dL Urine Glucose (UA) NEGATIVE (NEGATIVE) mg/dL Urine Ketones NEGATIVE (NEGATIVE) mg/dL Urine Occult Blood NEGATIVE (NEGATIVE) Urine Nitrite NEGATIVE (NEGATIVE) Urine Bilirubin NEGATIVE (NEGATIVE) Urine Urobilinogen 0.2 (<2.0) EU/dL Ur Leukocyte Esterase NEGATIVE (NEGATIVE) SARS-CoV-2 RNA (CITLALI) NEGATIVE (NEGATIVE) 11/24/20 11/24/20 Range/Units 06:40 06:40 WBC 9.04 (4.0-11.0) K/uL RBC 4.32 L (4.50-5.90) M/uL Hgb 13.8 (13.0-17.0) g/dL Hct 41.4 (38.0-50.0) % MCV 95.8 (80.0-98.0) fL MCH 31.9 (27.0-32.0) pg MCHC 33.3 (31.0-37.0) g/dL RDW Std Deviation 48.2 (28.0-62.0) fl RDW Coeff of [place] 14 (11.0-15.0) % Plt Count 197 (150-400) K/uL MPV 9.70 (7.40-12.00) fL Neut % (Auto) 70.0 (48.0-80.0) % Lymph % (Auto) 13.9 L (16.0-40.0) % [place] % (Auto) 11.9 (0.0-15.0) % Eos % (Auto) 3.9 (0.0-7.0) % Baso % (Auto) 0.3 (0.0-1.5) % Neut # (Auto) 6.3 H (1.4-5.7) K/uL Lymph # (Auto) 1.3 (0.6-2.4) K/uL [place] # (Auto) 1.1 H (0.0-0.8) K/uL Eos # (Auto) 0.4 (0.0-0.7) K/uL Baso # (Auto) 0.0 (0.0-0.1) K/uL Nucleated RBC % 0.0 /100WBC Nucleated RBCs # 0 K/uL Sodium 140 (136-148) mmol/L Potassium 4.2 (3.5-5.1) mmol/L Chloride 107 (98-107) mmol/L Carbon Dioxide 22.5 (21.0-32.0) mmol/L BUN 26 H (7.0-18.0) mg/dL Creatinine 1.6 H (0.8-1.3) mg/dL Est Cr Clr Drug Dosing 33.23 mL/min Estimated GFR (MDRD) 41.8 ml/min Glucose 92 (74-106) mg/dL Hemoglobin A1c (4.5 - 6.2) % Calcium 8.2 L (8.5-10.1) mg/dL Phosphorus 3.6 (2.6-4.7) mg/dL Magnesium 1.8 (1.8-2.4) mg/dL Total Bilirubin (0.2-1.0) mg/dL AST (15-37) IU/L ALT (14-63) IU/L Alkaline Phosphatase (46-116) U/L Troponin I (0.000-0.056) ng/mL Total Protein (6.4-8.2) g/dL Albumin (3.4-5.0) g/dL Globulin (2.6-4.0) g/dL Albumin/Globulin Ratio (0.9-1.6) Triglycerides (0-200) mg/dL Cholesterol (50-200) mg/dL LDL Cholesterol, Calc (60-180) mg/dL VLDL Cholesterol (5-55) mg/dL HDL Cholesterol (40-60) mg/dL Cholesterol/HDL Ratio (3.3-6.0) TSH 3rd Generation (0.36-3.74) uIU/mL Urine Color Urine Appearance Urine pH (5.0-8.0) Ur Specific [place] (1.001-1.035) Urine Protein (NEGATIVE) mg/dL Urine Glucose (UA) (NEGATIVE) mg/dL Urine Ketones (NEGATIVE) mg/dL Urine Occult Blood (NEGATIVE) Urine Nitrite (NEGATIVE) Urine Bilirubin (NEGATIVE) Urine Urobilinogen (<2.0) EU/dL Ur Leukocyte Esterase (NEGATIVE) SARS-CoV-2 RNA (CITLALI) (NEGATIVE) Med Orders - Current: Current Medications Acetaminophen (Acetaminophen 325 Mg Tab) 650 mg PO Q4H PRN PRN Reason: Pain (Mild 1-3)/fever Last Admin: 11/24/20 08:28 Dose: 650 mg Documented by: Albuterol/Ipratropium (Albuterol/Ipratropium 3.0-0.5 Mg/3 Ml Neb Soln) 3 ml NEB Q4HRRT PRN PRN Reason: Shortness Of Breath/wheezing Amlodipine Besylate (Amlodipine 5 Mg Tab) 5 mg PO DAILY [facility] Last Admin: 11/24/20 08:28 Dose: 5 mg Documented by: Lactated Ringer's (Ringers, Lactated) 1,000 mls @ 125 mls/hr IV ASDIRECTED [facility] Last Admin: 11/24/20 06:26 Dose: 125 mls/hr Documented by: Labetalol HCl (Labetalol 100 Mg/20 Ml Mdv) 20 mg IVPUSH Q4H PRN; Protocol PRN Reason: Hypertension Lidocaine (Lidocaine 5% 700 Mg Patch) 700 mg TRDERM Q24H [facility] Last Admin: 11/24/20 00:33 Dose: 700 mg Documented by: Ondansetron HCl (Ondansetron 4 Mg/2 Ml Sdv) 4 mg IVPUSH Q4H PRN PRN Reason: Nausea/Vomiting Tamsulosin HCl (Tamsulosin 0.4 Mg Cap.Er) 0.4 mg PO BIDPC [facility] Last Admin: 11/24/20 06:26 Dose: 0.4 mg Documented by: Discontinued Medications Sodium Chloride (Normal Saline) 1,000 mls @ 999 mls/hr IV STAT ONE Stop: 11/23/20 20:40 Last Admin: 11/23/20 20:19 Dose: 999 mls/hr Documented by: Ketorolac Tromethamine (Ketorolac 30 Mg/Ml Sdv) 30 mg IVPUSH ONETIME ONE Stop: 11/23/20 19:47 Last Admin: 11/23/20 20:19 Dose: 30 mg Documented by: Tramadol HCl (Tramadol 50 Mg Tab) 50 mg PO ONETIME ONE Stop: 11/23/20 17:12 Last Admin: 11/23/20 17:50 Dose: 50 mg Documented by: - Exam Urinary Catheter Total Time: 0Days 1Hours General: Alert, Oriented, Cooperative, No Acute Distress HEENT: Pupils Equal, Pupils Reactive, Mucous Membr. Moist/[place] Neck: Supple, No JVD Lungs: Clear to Auscultation, Normal Respiratory Effort Cardiovascular: Regular Rate, Regular Rhythm, No Murmurs GI/Abdominal Exam: Normal Bowel Sounds, Soft, Non-Tender (Male) Exam: No Hernia Back Exam: Normal Inspection. No: CVA Tenderness (L), CVA Tenderness (R) Extremities: Normal Inspection, Normal Range of Motion, Non-Tender, No Pedal Edema, Normal Capillary Refill Peripheral Pulses: 2+: Carotid (L), Carotid (R), Dorsalis Pedis (L), Dorsalis Pedis (R) Skin: Warm, Dry, Intact Neurological: No New Focal Deficit Psy/Mental Status: Alert, Normal Affect, Normal Mood - Patient Data Lab Results Last 24 hrs: Laboratory Results - last 24 hr 11/23/20 11/23/20 11/23/20 Range/Units 17:14 17:14 17:14 WBC 12.51 H (4.0-11.0) K/uL RBC 4.56 (4.50-5.90) M/uL Hgb 14.7 (13.0-17.0) g/dL Hct 44.0 (38.0-50.0) % MCV 96.5 (80.0-98.0) fL MCH 32.2 H (27.0-32.0) pg MCHC 33.4 (31.0-37.0) g/dL RDW Std Deviation 48.5 (28.0-62.0) fl RDW Coeff of Ken 14 (11.0-15.0) % Plt Count 215 (150-400) K/uL MPV 9.60 (7.40-12.00) fL Neut % (Auto) 81.0 H (48.0-80.0) % Lymph % (Auto) 9.5 L (16.0-40.0) % [place] % (Auto) 8.2 (0.0-15.0) % Eos % (Auto) 1.1 (0.0-7.0) % Baso % (Auto) 0.2 (0.0-1.5) % Neut # (Auto) 10.1 H (1.4-5.7) K/uL Lymph # (Auto) 1.2 (0.6-2.4) K/uL [place] # (Auto) 1.0 H (0.0-0.8) K/uL Eos # (Auto) 0.1 (0.0-0.7) K/uL Baso # (Auto) 0.0 (0.0-0.1) K/uL Nucleated RBC % /100WBC Nucleated RBCs # K/uL Sodium 141 (136-148) mmol/L Potassium 4.2 (3.5-5.1) mmol/L Chloride 106 (98-107) mmol/L Carbon Dioxide 27.5 (21.0-32.0) mmol/L BUN 27 H (7.0-18.0) mg/dL Creatinine 2.0 H (0.8-1.3) mg/dL Est Cr Clr Drug Dosing 25.63 mL/min Estimated GFR (MDRD) 32.3 ml/min Glucose 143 H (74-106) mg/dL Hemoglobin A1c (4.5 - 6.2) % Calcium 9.5 (8.5-10.1) mg/dL Phosphorus (2.6-4.7) mg/dL Magnesium (1.8-2.4) mg/dL Total Bilirubin 0.4 (0.2-1.0) mg/dL AST 17 (15-37) IU/L ALT 18 (14-63) IU/L Alkaline Phosphatase 68 (46-116) U/L Troponin I < 0.050 (0.000-0.056) ng/mL Total Protein 7.4 (6.4-8.2) g/dL Albumin 3.9 (3.4-5.0) g/dL Globulin 3.5 (2.6-4.0) g/dL Albumin/Globulin Ratio 1.1 (0.9-1.6) Triglycerides 65 (0-200) mg/dL Cholesterol 137 (50-200) mg/dL LDL Cholesterol, Calc 67 (60-180) mg/dL VLDL Cholesterol 13 (5-55) mg/dL HDL Cholesterol 57 (40-60) mg/dL Cholesterol/HDL Ratio 2.4 L (3.3-6.0) TSH 3rd Generation 1.57 (0.36-3.74) uIU/mL Urine Color Urine Appearance Urine pH (5.0-8.0) Ur Specific [place] (1.001-1.035) Urine Protein (NEGATIVE) mg/dL Urine Glucose (UA) (NEGATIVE) mg/dL Urine Ketones (NEGATIVE) mg/dL Urine Occult Blood (NEGATIVE) Urine Nitrite (NEGATIVE) Urine Bilirubin (NEGATIVE) Urine Urobilinogen (<2.0) EU/dL Ur Leukocyte Esterase (NEGATIVE) SARS-CoV-2 RNA (CITLALI) (NEGATIVE) 11/23/20 11/23/20 11/24/20 Range/Units 17:14 19:13 01:05 WBC (4.0-11.0) K/uL RBC (4.50-5.90) M/uL Hgb (13.0-17.0) g/dL Hct (38.0-50.0) % MCV (80.0-98.0) fL MCH (27.0-32.0) pg MCHC (31.0-37.0) g/dL RDW Std Deviation (28.0-62.0) fl RDW Coeff of [place] (11.0-15.0) % Plt Count (150-400) K/uL MPV (7.40-12.00) fL Neut % (Auto) (48.0-80.0) % Lymph % (Auto) (16.0-40.0) % [place] % (Auto) (0.0-15.0) % Eos % (Auto) (0.0-7.0) % Baso % (Auto) (0.0-1.5) % Neut # (Auto) (1.4-5.7) K/uL Lymph # (Auto) (0.6-2.4) K/uL [place] # (Auto) (0.0-0.8) K/uL Eos # (Auto) (0.0-0.7) K/uL Baso # (Auto) (0.0-0.1) K/uL Nucleated RBC % /100WBC Nucleated RBCs # K/uL Sodium (136-148) mmol/L Potassium (3.5-5.1) mmol/L Chloride (98-107) mmol/L Carbon Dioxide (21.0-32.0) mmol/L BUN (7.0-18.0) mg/dL Creatinine (0.8-1.3) mg/dL Est Cr Clr Drug Dosing mL/min Estimated GFR (MDRD) ml/min Glucose (74-106) mg/dL Hemoglobin A1c 5.6 (4.5 - 6.2) % Calcium (8.5-10.1) mg/dL Phosphorus (2.6-4.7) mg/dL Magnesium (1.8-2.4) mg/dL Total Bilirubin (0.2-1.0) mg/dL AST (15-37) IU/L ALT (14-63) IU/L Alkaline Phosphatase (46-116) U/L Troponin I (0.000-0.056) ng/mL Total Protein (6.4-8.2) g/dL Albumin (3.4-5.0) g/dL Globulin (2.6-4.0) g/dL Albumin/Globulin Ratio (0.9-1.6) Triglycerides (0-200) mg/dL Cholesterol (50-200) mg/dL LDL Cholesterol, Calc (60-180) mg/dL VLDL Cholesterol (5-55) mg/dL HDL Cholesterol (40-60) mg/dL Cholesterol/HDL Ratio (3.3-6.0) TSH 3rd Generation (0.36-3.74) uIU/mL Urine Color YELLOW Urine Appearance CLEAR Urine pH 5.5 (5.0-8.0) Ur Specific [place] 1.025 (1.001-1.035) Urine Protein NEGATIVE (NEGATIVE) mg/dL Urine Glucose (UA) NEGATIVE (NEGATIVE) mg/dL Urine Ketones NEGATIVE (NEGATIVE) mg/dL Urine Occult Blood NEGATIVE (NEGATIVE) Urine Nitrite NEGATIVE (NEGATIVE) Urine Bilirubin NEGATIVE (NEGATIVE) Urine Urobilinogen 0.2 (<2.0) EU/dL Ur Leukocyte Esterase NEGATIVE (NEGATIVE) SARS-CoV-2 RNA (CITLALI) NEGATIVE (NEGATIVE) 11/24/20 11/24/20 Range/Units 06:40 06:40 WBC 9.04 (4.0-11.0) K/uL RBC 4.32 L (4.50-5.90) M/uL Hgb 13.8 (13.0-17.0) g/dL Hct 41.4 (38.0-50.0) % MCV 95.8 (80.0-98.0) fL MCH 31.9 (27.0-32.0) pg MCHC 33.3 (31.0-37.0) g/dL RDW Std Deviation 48.2 (28.0-62.0) fl RDW Coeff of [place] 14 (11.0-15.0) % Plt Count 197 (150-400) K/uL MPV 9.70 (7.40-12.00) fL Neut % (Auto) 70.0 (48.0-80.0) % Lymph % (Auto) 13.9 L (16.0-40.0) % [place] % (Auto) 11.9 (0.0-15.0) % Eos % (Auto) 3.9 (0.0-7.0) % Baso % (Auto) 0.3 (0.0-1.5) % Neut # (Auto) 6.3 H (1.4-5.7) K/uL Lymph # (Auto) 1.3 (0.6-2.4) K/uL [place] # (Auto) 1.1 H (0.0-0.8) K/uL Eos # (Auto) 0.4 (0.0-0.7) K/uL Baso # (Auto) 0.0 (0.0-0.1) K/uL Nucleated RBC % 0.0 /100WBC Nucleated RBCs # 0 K/uL Sodium 140 (136-148) mmol/L Potassium 4.2 (3.5-5.1) mmol/L Chloride 107 (98-107) mmol/L Carbon Dioxide 22.5 (21.0-32.0) mmol/L BUN 26 H (7.0-18.0) mg/dL Creatinine 1.6 H (0.8-1.3) mg/dL Est Cr Clr Drug Dosing 33.23 mL/min Estimated GFR (MDRD) 41.8 ml/min Glucose 92 (74-106) mg/dL Hemoglobin A1c (4.5 - 6.2) % Calcium 8.2 L (8.5-10.1) mg/dL Phosphorus 3.6 (2.6-4.7) mg/dL Magnesium 1.8 (1.8-2.4) mg/dL Total Bilirubin (0.2-1.0) mg/dL AST (15-37) IU/L ALT (14-63) IU/L Alkaline Phosphatase (46-116) U/L Troponin I (0.000-0.056) ng/mL Total Protein (6.4-8.2) g/dL Albumin (3.4-5.0) g/dL Globulin (2.6-4.0) g/dL Albumin/Globulin Ratio (0.9-1.6) Triglycerides (0-200) mg/dL Cholesterol (50-200) mg/dL LDL Cholesterol, Calc (60-180) mg/dL VLDL Cholesterol (5-55) mg/dL HDL Cholesterol (40-60) mg/dL Cholesterol/HDL Ratio (3.3-6.0) TSH 3rd Generation (0.36-3.74) uIU/mL Urine Color Urine Appearance Urine pH (5.0-8.0) Ur Specific [place] (1.001-1.035) Urine Protein (NEGATIVE) mg/dL Urine Glucose (UA) (NEGATIVE) mg/dL Urine Ketones (NEGATIVE) mg/dL Urine Occult Blood (NEGATIVE) Urine Nitrite (NEGATIVE) Urine Bilirubin (NEGATIVE) Urine Urobilinogen (<2.0) EU/dL Ur Leukocyte Esterase (NEGATIVE) SARS-CoV-2 RNA (CITLALI) (NEGATIVE) Result Diagrams: 11/24/20 06:40 11/24/20 06:40 Sepsis Event Note - Evaluation Sepsis Screening Result: No Definite Risk - Focused Exam Vital Signs: Vital Signs Temp Pulse Resp BP BP Pulse Ox 11/24/20 08:28 172/89 H 11/24/20 07:30 97.2 F 68 17 172/89 H 95 11/24/20 04:08 98.0 F 91 18 148/85 H 95 11/24/20 00:34 97.5 F 67 16 179/96 H 94 L - Problem List Review Problem List Initiated/Reviewed/Updated: Yes - Plan Plan:: Patient is a 80-year-old gentleman admitted status post fall for management of pain and possible syncope although patient denies syncope but had reported previously to his daughter. 1. Status post fall: Possibly secondary to dehydration as patient had been decreasing p.o. intake, or possible syncopal episode. As patient has no signs of anemia, hypoxia, hypoglycemia and does not complain of dizziness or syncope. Vitally stable except for elevated blood pressure 172/86 this morning, Chest x-rays, x-rays of the shoulders demonstrated no acute fractures, CT head: Negative for any intracranial bleed or fractures. Patient was started on fluids upon admission since he appeared very dry and possibly dehydrated. Patient tolerates p.o. appropriately will consider discontinuing fluids. Creatinine 1.6, continue appropriate hydration p.o. or IV as necessary. PT consult evaluate and treat for strengthening/ambulate. 2. Leukocytosis: Resolved, afebrile 3. Hypertension: 172/86 this morning patient was started on amlodipine 5 mg, will increase dose to 10 mg daily. Pain could potentially be contributing to high blood pressure, also possible underlying history of CKD. Patient denies any history of high blood pressure in the past and is not on any medications. Continue home dose of tamsulosin for BPH which also help with blood pressure. <Tata Hamilton - Last Filed: 11/24/20 16:15> - Patient Data Vitals - Most Recent: Last Vital Signs Temp 36.3 C 11/24/20 16:09 Pulse 68 11/24/20 16:09 Resp 17 11/24/20 16:09 BP 150/82 H 11/24/20 16:09 Pulse Ox 93 L 11/24/20 16:09 I&O - Last 24 Hours: Intake & Output 11/24/20 11/24/20 11/24/20 06:59 14:59 22:59 Intake Total 936 Output Total 17 Balance 76F Lab Results Last 24 Hours: Laboratory Results - last 24 hr 11/23/20 11/23/20 11/23/20 Range/Units 17:14 17:14 17:14 WBC 12.51 H (4.0-11.0) K/uL RBC 4.56 (4.50-5.90) M/uL Hgb 14.7 (13.0-17.0) g/dL Hct 44.0 (38.0-50.0) % MCV 96.5 (80.0-98.0) fL MCH 32.2 H (27.0-32.0) pg MCHC 33.4 (31.0-37.0) g/dL RDW Std Deviation 48.5 (28.0-62.0) fl RDW Coeff of Ken 14 (11.0-15.0) % Plt Count 215 (150-400) K/uL MPV 9.60 (7.40-12.00) fL Neut % (Auto) 81.0 H (48.0-80.0) % Lymph % (Auto) 9.5 L (16.0-40.0) % [place] % (Auto) 8.2 (0.0-15.0) % Eos % (Auto) 1.1 (0.0-7.0) % Baso % (Auto) 0.2 (0.0-1.5) % Neut # (Auto) 10.1 H (1.4-5.7) K/uL Lymph # (Auto) 1.2 (0.6-2.4) K/uL [place] # (Auto) 1.0 H (0.0-0.8) K/uL Eos # (Auto) 0.1 (0.0-0.7) K/uL Baso # (Auto) 0.0 (0.0-0.1) K/uL Nucleated RBC % /100WBC Nucleated RBCs # K/uL Sodium 141 (136-148) mmol/L Potassium 4.2 (3.5-5.1) mmol/L Chloride 106 (98-107) mmol/L Carbon Dioxide 27.5 (21.0-32.0) mmol/L BUN 27 H (7.0-18.0) mg/dL Creatinine 2.0 H (0.8-1.3) mg/dL Est Cr Clr Drug Dosing 25.63 mL/min Estimated GFR (MDRD) 32.3 ml/min Glucose 143 H (74-106) mg/dL Hemoglobin A1c (4.5 - 6.2) % Calcium 9.5 (8.5-10.1) mg/dL Phosphorus (2.6-4.7) mg/dL Magnesium (1.8-2.4) mg/dL Total Bilirubin 0.4 (0.2-1.0) mg/dL AST 17 (15-37) IU/L ALT 18 (14-63) IU/L Alkaline Phosphatase 68 (46-116) U/L Troponin I < 0.050 (0.000-0.056) ng/mL Total Protein 7.4 (6.4-8.2) g/dL Albumin 3.9 (3.4-5.0) g/dL Globulin 3.5 (2.6-4.0) g/dL Albumin/Globulin Ratio 1.1 (0.9-1.6) Triglycerides 65 (0-200) mg/dL Cholesterol 137 (50-200) mg/dL LDL Cholesterol, Calc 67 (60-180) mg/dL VLDL Cholesterol 13 (5-55) mg/dL HDL Cholesterol 57 (40-60) mg/dL Cholesterol/HDL Ratio 2.4 L (3.3-6.0) TSH 3rd Generation 1.57 (0.36-3.74) uIU/mL Urine Color Urine Appearance Urine pH (5.0-8.0) Ur Specific [place] (1.001-1.035) Urine Protein (NEGATIVE) mg/dL Urine Glucose (UA) (NEGATIVE) mg/dL Urine Ketones (NEGATIVE) mg/dL Urine Occult Blood (NEGATIVE) Urine Nitrite (NEGATIVE) Urine Bilirubin (NEGATIVE) Urine Urobilinogen (<2.0) EU/dL Ur Leukocyte Esterase (NEGATIVE) SARS-CoV-2 RNA (CITLALI) (NEGATIVE) 11/23/20 11/23/20 11/24/20 Range/Units 17:14 19:13 01:05 WBC (4.0-11.0) K/uL RBC (4.50-5.90) M/uL Hgb (13.0-17.0) g/dL Hct (38.0-50.0) % MCV (80.0-98.0) fL MCH (27.0-32.0) pg MCHC (31.0-37.0) g/dL RDW Std Deviation (28.0-62.0) fl RDW Coeff of Ken (11.0-15.0) % Plt Count (150-400) K/uL MPV (7.40-12.00) fL Neut % (Auto) (48.0-80.0) % Lymph % (Auto) (16.0-40.0) % [place] % (Auto) (0.0-15.0) % Eos % (Auto) (0.0-7.0) % Baso % (Auto) (0.0-1.5) % Neut # (Auto) (1.4-5.7) K/uL Lymph # (Auto) (0.6-2.4) K/uL [place] # (Auto) (0.0-0.8) K/uL Eos # (Auto) (0.0-0.7) K/uL Baso # (Auto) (0.0-0.1) K/uL Nucleated RBC % /100WBC Nucleated RBCs # K/uL Sodium (136-148) mmol/L Potassium (3.5-5.1) mmol/L Chloride (98-107) mmol/L Carbon Dioxide (21.0-32.0) mmol/L BUN (7.0-18.0) mg/dL Creatinine (0.8-1.3) mg/dL Est Cr Clr Drug Dosing mL/min Estimated GFR (MDRD) ml/min Glucose (74-106) mg/dL Hemoglobin A1c 5.6 (4.5 - 6.2) % Calcium (8.5-10.1) mg/dL Phosphorus (2.6-4.7) mg/dL Magnesium (1.8-2.4) mg/dL Total Bilirubin (0.2-1.0) mg/dL AST (15-37) IU/L ALT (14-63) IU/L Alkaline Phosphatase (46-116) U/L Troponin I (0.000-0.056) ng/mL Total Protein (6.4-8.2) g/dL Albumin (3.4-5.0) g/dL Globulin (2.6-4.0) g/dL Albumin/Globulin Ratio (0.9-1.6) Triglycerides (0-200) mg/dL Cholesterol (50-200) mg/dL LDL Cholesterol, Calc (60-180) mg/dL VLDL Cholesterol (5-55) mg/dL HDL Cholesterol (40-60) mg/dL Cholesterol/HDL Ratio (3.3-6.0) TSH 3rd Generation (0.36-3.74) uIU/mL Urine Color YELLOW Urine Appearance CLEAR Urine pH 5.5 (5.0-8.0) Ur Specific [place] 1.025 (1.001-1.035) Urine Protein NEGATIVE (NEGATIVE) mg/dL Urine Glucose (UA) NEGATIVE (NEGATIVE) mg/dL Urine Ketones NEGATIVE (NEGATIVE) mg/dL Urine Occult Blood NEGATIVE (NEGATIVE) Urine Nitrite NEGATIVE (NEGATIVE) Urine Bilirubin NEGATIVE (NEGATIVE) Urine Urobilinogen 0.2 (<2.0) EU/dL Ur Leukocyte Esterase NEGATIVE (NEGATIVE) SARS-CoV-2 RNA (CITLALI) NEGATIVE (NEGATIVE) 11/24/20 11/24/20 Range/Units 06:40 06:40 WBC 9.04 (4.0-11.0) K/uL RBC 4.32 L (4.50-5.90) M/uL Hgb 13.8 (13.0-17.0) g/dL Hct 41.4 (38.0-50.0) % MCV 95.8 (80.0-98.0) fL MCH 31.9 (27.0-32.0) pg MCHC 33.3 (31.0-37.0) g/dL RDW Std Deviation 48.2 (28.0-62.0) fl RDW Coeff of [place] 14 (11.0-15.0) % Plt Count 197 (150-400) K/uL MPV 9.70 (7.40-12.00) fL Neut % (Auto) 70.0 (48.0-80.0) % Lymph % (Auto) 13.9 L (16.0-40.0) % [place] % (Auto) 11.9 (0.0-15.0) % Eos % (Auto) 3.9 (0.0-7.0) % Baso % (Auto) 0.3 (0.0-1.5) % Neut # (Auto) 6.3 H (1.4-5.7) K/uL Lymph # (Auto) 1.3 (0.6-2.4) K/uL [place] # (Auto) 1.1 H (0.0-0.8) K/uL Eos # (Auto) 0.4 (0.0-0.7) K/uL Baso # (Auto) 0.0 (0.0-0.1) K/uL Nucleated RBC % 0.0 /100WBC Nucleated RBCs # 0 K/uL Sodium 140 (136-148) mmol/L Potassium 4.2 (3.5-5.1) mmol/L Chloride 107 (98-107) mmol/L Carbon Dioxide 22.5 (21.0-32.0) mmol/L BUN 26 H (7.0-18.0) mg/dL Creatinine 1.6 H (0.8-1.3) mg/dL Est Cr Clr Drug Dosing 33.23 mL/min Estimated GFR (MDRD) 41.8 ml/min Glucose 92 (74-106) mg/dL Hemoglobin A1c (4.5 - 6.2) % Calcium 8.2 L (8.5-10.1) mg/dL Phosphorus 3.6 (2.6-4.7) mg/dL Magnesium 1.8 (1.8-2.4) mg/dL Total Bilirubin (0.2-1.0) mg/dL AST (15-37) IU/L ALT (14-63) IU/L Alkaline Phosphatase (46-116) U/L Troponin I (0.000-0.056) ng/mL Total Protein (6.4-8.2) g/dL Albumin (3.4-5.0) g/dL Globulin (2.6-4.0) g/dL Albumin/Globulin Ratio (0.9-1.6) Triglycerides (0-200) mg/dL Cholesterol (50-200) mg/dL LDL Cholesterol, Calc (60-180) mg/dL VLDL Cholesterol (5-55) mg/dL HDL Cholesterol (40-60) mg/dL Cholesterol/HDL Ratio (3.3-6.0) TSH 3rd Generation (0.36-3.74) uIU/mL Urine Color Urine Appearance Urine pH (5.0-8.0) Ur Specific [place] (1.001-1.035) Urine Protein (NEGATIVE) mg/dL Urine Glucose (UA) (NEGATIVE) mg/dL Urine Ketones (NEGATIVE) mg/dL Urine Occult Blood (NEGATIVE) Urine Nitrite (NEGATIVE) Urine Bilirubin (NEGATIVE) Urine Urobilinogen (<2.0) EU/dL Ur Leukocyte Esterase (NEGATIVE) SARS-CoV-2 RNA (CITLALI) (NEGATIVE) Med Orders - Current: Current Medications Acetaminophen (Acetaminophen 325 Mg Tab) 325 mg PO Q4H PRN PRN Reason: Pain (mild 1-3) Albuterol/Ipratropium (Albuterol/Ipratropium 3.0-0.5 Mg/3 Ml Neb Soln) 3 ml NEB Q4HRRT PRN PRN Reason: Shortness Of Breath/wheezing Amlodipine Besylate (Amlodipine 5 Mg Tab) 10 mg PO DAILY [facility] Lactated Ringer's (Ringers, Lactated) 1,000 mls @ 125 mls/hr IV ASDIRECTED [facility] Last Admin: 11/24/20 14:40 Dose: 125 mls/hr Documented by: Labetalol HCl (Labetalol 100 Mg/20 Ml Mdv) 20 mg IVPUSH Q4H PRN; Protocol PRN Reason: Hypertension Lidocaine (Lidocaine 5% 700 Mg Patch) 700 mg TRDERM Q24H [facility] Last Admin: 11/24/20 00:33 Dose: 700 mg Documented by: Ondansetron HCl (Ondansetron 4 Mg/2 Ml Sdv) 4 mg IVPUSH Q4H PRN PRN Reason: Nausea/Vomiting Oxycodone/Acetaminophen (Acetaminophen/Oxycodone 325-5 Mg Tab) 1 tab PO Q6H PRN PRN Reason: Pain (moderate 4-6) Last Admin: 11/24/20 14:45 Dose: 1 tab Documented by: Tamsulosin HCl (Tamsulosin 0.4 Mg Cap.Er) 0.4 mg PO BIDPC [facility] Last Admin: 11/24/20 10:20 Dose: Not Given Documented by: Discontinued Medications Acetaminophen (Acetaminophen 325 Mg Tab) 650 mg PO Q4H PRN PRN Reason: Pain (Mild 1-3)/fever Last Admin: 11/24/20 12:33 Dose: 650 mg Documented by: Amlodipine Besylate (Amlodipine 5 Mg Tab) 5 mg PO DAILY [facility] Last Admin: 11/24/20 08:28 Dose: 5 mg Documented by: Sodium Chloride (Normal Saline) 1,000 mls @ 999 mls/hr IV STAT ONE Stop: 11/23/20 20:40 Last Admin: 11/23/20 20:19 Dose: 999 mls/hr Documented by: Ketorolac Tromethamine (Ketorolac 30 Mg/Ml Sdv) 30 mg IVPUSH ONETIME ONE Stop: 11/23/20 19:47 Last Admin: 11/23/20 20:19 Dose: 30 mg Documented by: Tramadol HCl (Tramadol 50 Mg Tab) 50 mg PO ONETIME ONE Stop: 11/23/20 17:12 Last Admin: 11/23/20 17:50 Dose: 50 mg Documented by: - Patient Data Lab Results Last 24 hrs: Laboratory Results - last 24 hr 11/23/20 11/23/20 11/23/20 Range/Units 17:14 17:14 17:14 WBC 12.51 H (4.0-11.0) K/uL RBC 4.56 (4.50-5.90) M/uL Hgb 14.7 (13.0-17.0) g/dL Hct 44.0 (38.0-50.0) % MCV 96.5 (80.0-98.0) fL MCH 32.2 H (27.0-32.0) pg MCHC 33.4 (31.0-37.0) g/dL RDW Std Deviation 48.5 (28.0-62.0) fl RDW Coeff of Ken 14 (11.0-15.0) % Plt Count 215 (150-400) K/uL MPV 9.60 (7.40-12.00) fL Neut % (Auto) 81.0 H (48.0-80.0) % Lymph % (Auto) 9.5 L (16.0-40.0) % [place] % (Auto) 8.2 (0.0-15.0) % Eos % (Auto) 1.1 (0.0-7.0) % Baso % (Auto) 0.2 (0.0-1.5) % Neut # (Auto) 10.1 H (1.4-5.7) K/uL Lymph # (Auto) 1.2 (0.6-2.4) K/uL [place] # (Auto) 1.0 H (0.0-0.8) K/uL Eos # (Auto) 0.1 (0.0-0.7) K/uL Baso # (Auto) 0.0 (0.0-0.1) K/uL Nucleated RBC % /100WBC Nucleated RBCs # K/uL Sodium 141 (136-148) mmol/L Potassium 4.2 (3.5-5.1) mmol/L Chloride 106 (98-107) mmol/L Carbon Dioxide 27.5 (21.0-32.0) mmol/L BUN 27 H (7.0-18.0) mg/dL Creatinine 2.0 H (0.8-1.3) mg/dL Est Cr Clr Drug Dosing 25.63 mL/min Estimated GFR (MDRD) 32.3 ml/min Glucose 143 H (74-106) mg/dL Hemoglobin A1c (4.5 - 6.2) % Calcium 9.5 (8.5-10.1) mg/dL Phosphorus (2.6-4.7) mg/dL Magnesium (1.8-2.4) mg/dL Total Bilirubin 0.4 (0.2-1.0) mg/dL AST 17 (15-37) IU/L ALT 18 (14-63) IU/L Alkaline Phosphatase 68 (46-116) U/L Troponin I < 0.050 (0.000-0.056) ng/mL Total Protein 7.4 (6.4-8.2) g/dL Albumin 3.9 (3.4-5.0) g/dL Globulin 3.5 (2.6-4.0) g/dL Albumin/Globulin Ratio 1.1 (0.9-1.6) Triglycerides 65 (0-200) mg/dL Cholesterol 137 (50-200) mg/dL LDL Cholesterol, Calc 67 (60-180) mg/dL VLDL Cholesterol 13 (5-55) mg/dL HDL Cholesterol 57 (40-60) mg/dL Cholesterol/HDL Ratio 2.4 L (3.3-6.0) TSH 3rd Generation 1.57 (0.36-3.74) uIU/mL Urine Color Urine Appearance Urine pH (5.0-8.0) Ur Specific [place] (1.001-1.035) Urine Protein (NEGATIVE) mg/dL Urine Glucose (UA) (NEGATIVE) mg/dL Urine Ketones (NEGATIVE) mg/dL Urine Occult Blood (NEGATIVE) Urine Nitrite (NEGATIVE) Urine Bilirubin (NEGATIVE) Urine Urobilinogen (<2.0) EU/dL Ur Leukocyte Esterase (NEGATIVE) SARS-CoV-2 RNA (CITLALI) (NEGATIVE) 11/23/20 11/23/20 11/24/20 Range/Units 17:14 19:13 01:05 WBC (4.0-11.0) K/uL RBC (4.50-5.90) M/uL Hgb (13.0-17.0) g/dL Hct (38.0-50.0) % MCV (80.0-98.0) fL MCH (27.0-32.0) pg MCHC (31.0-37.0) g/dL RDW Std Deviation (28.0-62.0) fl RDW Coeff of Ken (11.0-15.0) % Plt Count (150-400) K/uL MPV (7.40-12.00) fL Neut % (Auto) (48.0-80.0) % Lymph % (Auto) (16.0-40.0) % [place] % (Auto) (0.0-15.0) % Eos % (Auto) (0.0-7.0) % Baso % (Auto) (0.0-1.5) % Neut # (Auto) (1.4-5.7) K/uL Lymph # (Auto) (0.6-2.4) K/uL [place] # (Auto) (0.0-0.8) K/uL Eos # (Auto) (0.0-0.7) K/uL Baso # (Auto) (0.0-0.1) K/uL Nucleated RBC % /100WBC Nucleated RBCs # K/uL Sodium (136-148) mmol/L Potassium (3.5-5.1) mmol/L Chloride (98-107) mmol/L Carbon Dioxide (21.0-32.0) mmol/L BUN (7.0-18.0) mg/dL Creatinine (0.8-1.3) mg/dL Est Cr Clr Drug Dosing mL/min Estimated GFR (MDRD) ml/min Glucose (74-106) mg/dL Hemoglobin A1c 5.6 (4.5 - 6.2) % Calcium (8.5-10.1) mg/dL Phosphorus (2.6-4.7) mg/dL Magnesium (1.8-2.4) mg/dL Total Bilirubin (0.2-1.0) mg/dL AST (15-37) IU/L ALT (14-63) IU/L Alkaline Phosphatase (46-116) U/L Troponin I (0.000-0.056) ng/mL Total Protein (6.4-8.2) g/dL Albumin (3.4-5.0) g/dL Globulin (2.6-4.0) g/dL Albumin/Globulin Ratio (0.9-1.6) Triglycerides (0-200) mg/dL Cholesterol (50-200) mg/dL LDL Cholesterol, Calc (60-180) mg/dL VLDL Cholesterol (5-55) mg/dL HDL Cholesterol (40-60) mg/dL Cholesterol/HDL Ratio (3.3-6.0) TSH 3rd Generation (0.36-3.74) uIU/mL Urine Color YELLOW Urine Appearance CLEAR Urine pH 5.5 (5.0-8.0) Ur Specific [place] 1.025 (1.001-1.035) Urine Protein NEGATIVE (NEGATIVE) mg/dL Urine Glucose (UA) NEGATIVE (NEGATIVE) mg/dL Urine Ketones NEGATIVE (NEGATIVE) mg/dL Urine Occult Blood NEGATIVE (NEGATIVE) Urine Nitrite NEGATIVE (NEGATIVE) Urine Bilirubin NEGATIVE (NEGATIVE) Urine Urobilinogen 0.2 (<2.0) EU/dL Ur Leukocyte Esterase NEGATIVE (NEGATIVE) SARS-CoV-2 RNA (CITLALI) NEGATIVE (NEGATIVE) 11/24/20 11/24/20 Range/Units 06:40 06:40 WBC 9.04 (4.0-11.0) K/uL RBC 4.32 L (4.50-5.90) M/uL Hgb 13.8 (13.0-17.0) g/dL Hct 41.4 (38.0-50.0) % MCV 95.8 (80.0-98.0) fL MCH 31.9 (27.0-32.0) pg MCHC 33.3 (31.0-37.0) g/dL RDW Std Deviation 48.2 (28.0-62.0) fl RDW Coeff of Ken 14 (11.0-15.0) % Plt Count 197 (150-400) K/uL MPV 9.70 (7.40-12.00) fL Neut % (Auto) 70.0 (48.0-80.0) % Lymph % (Auto) 13.9 L (16.0-40.0) % [place] % (Auto) 11.9 (0.0-15.0) % Eos % (Auto) 3.9 (0.0-7.0) % Baso % (Auto) 0.3 (0.0-1.5) % Neut # (Auto) 6.3 H (1.4-5.7) K/uL Lymph # (Auto) 1.3 (0.6-2.4) K/uL [place] # (Auto) 1.1 H (0.0-0.8) K/uL Eos # (Auto) 0.4 (0.0-0.7) K/uL Baso # (Auto) 0.0 (0.0-0.1) K/uL Nucleated RBC % 0.0 /100WBC Nucleated RBCs # 0 K/uL Sodium 140 (136-148) mmol/L Potassium 4.2 (3.5-5.1) mmol/L Chloride 107 (98-107) mmol/L Carbon Dioxide 22.5 (21.0-32.0) mmol/L BUN 26 H (7.0-18.0) mg/dL Creatinine 1.6 H (0.8-1.3) mg/dL Est Cr Clr Drug Dosing 33.23 mL/min Estimated GFR (MDRD) 41.8 ml/min Glucose 92 (74-106) mg/dL Hemoglobin A1c (4.5 - 6.2) % Calcium 8.2 L (8.5-10.1) mg/dL Phosphorus 3.6 (2.6-4.7) mg/dL Magnesium 1.8 (1.8-2.4) mg/dL Total Bilirubin (0.2-1.0) mg/dL AST (15-37) IU/L ALT (14-63) IU/L Alkaline Phosphatase (46-116) U/L Troponin I (0.000-0.056) ng/mL Total Protein (6.4-8.2) g/dL Albumin (3.4-5.0) g/dL Globulin (2.6-4.0) g/dL Albumin/Globulin Ratio (0.9-1.6) Triglycerides (0-200) mg/dL Cholesterol (50-200) mg/dL LDL Cholesterol, Calc (60-180) mg/dL VLDL Cholesterol (5-55) mg/dL HDL Cholesterol (40-60) mg/dL Cholesterol/HDL Ratio (3.3-6.0) TSH 3rd Generation (0.36-3.74) uIU/mL Urine Color Urine Appearance Urine pH (5.0-8.0) Ur Specific [place] (1.001-1.035) Urine Protein (NEGATIVE) mg/dL Urine Glucose (UA) (NEGATIVE) mg/dL Urine Ketones (NEGATIVE) mg/dL Urine Occult Blood (NEGATIVE) Urine Nitrite (NEGATIVE) Urine Bilirubin (NEGATIVE) Urine Urobilinogen (<2.0) EU/dL Ur Leukocyte Esterase (NEGATIVE) SARS-CoV-2 RNA (CITLALI) (NEGATIVE) Result Diagrams: 11/24/20 06:40 11/24/20 06:40 Sepsis Event Note - Focused Exam Vital Signs: Vital Signs Temp Pulse Resp BP BP Pulse Ox 11/24/20 16:09 36.3 C 68 17 150/82 H 93 L 11/24/20 11:45 36.2 C 88 17 107/66 95 11/24/20 08:28 172/89 H 11/24/20 07:30 36.2 C 68 17 172/89 H 95 - Problem List & Annotations (1) Contusion of rib on left side SNOMED Code(s): 353302943 Code(s): S20.212A - CONTUSION OF LEFT FRONT WALL OF THORAX, INITIAL ENCOUNTER Status: Acute Current Visit: Yes Qualifiers: Encounter type: initial encounter Qualified Code(s): S20.212A - Contusion of left front wall of thorax, initial encounter (2) Fall SNOMED Code(s): 2485824, 426790975 Code(s): W19.XXXA - UNSPECIFIED FALL, INITIAL ENCOUNTER Status: Acute Current Visit: Yes Qualifiers: Encounter type: initial encounter Qualified Code(s): W19.XXXA - Unspecified fall, initial encounter (3) Hypertension SNOMED Code(s): 87038940 Code(s): I10 - ESSENTIAL (PRIMARY) HYPERTENSION Status: Acute Current Visit: Yes Qualifiers: Hypertension type: unspecified Qualified Code(s): I10 - Essential (primary) hypertension (4) CKD (chronic kidney disease) SNOMED Code(s): 338842164 Code(s): N18.9 - CHRONIC KIDNEY DISEASE, UNSPECIFIED Status: Acute Current Visit: Yes - My Orders Last 24 Hours: My Active Orders 11/23/20 19:47 Ambulate [RC] ASDIRECTED Oxygen Therapy [RC] PRN VTE/DVT Education [RC] PER UNIT ROUTINE Vital Signs [RC] Q4H Albuterol/Ipratropium [DuoNeb 3.0-0.5 MG/3 ML] 3 ml NEB Q4HRRT PRN Ondansetron [Zofran] 4 mg IVPUSH Q4H PRN Sequential Compression Device [OM.PC] Per Unit Routine 11/23/20 19:48 Antiembolic Devices [RC] PER UNIT ROUTINE RT Aerosol Therapy [RC] ASDIRECTED 11/23/20 19:58 Telemetry Monitoring [Cardiac Monitoring] [RC] Q8H 11/23/20 20:00 Lactated Ringers [Ringers, Lactated] 1,000 ml IV ASDIRECTED 11/23/20 23:21 Labetalol [Normodyne] 20 mg IVPUSH Q4H PRN 11/23/20 23:45 Lidocaine 5% [Lidoderm 5%] 700 mg TRDERM Q24H 11/24/20 05:52 Tamsulosin [Flomax] 0.4 mg PO BIDPC 11/24/20 05:53 Urinary Catheter Assessment [RC] Q8H 11/24/20 06:00 Insert Urinary Catheter [OM.PC] Q24H 11/24/20 Breakfast Heart Healthy Diet [DIET] - Plan Plan:: I have seen and evaluated the patient and agree with the residents note unless specified in my note
[2020-11-24] MEDS: Acetaminophen/oxyCODONE 325-5 MG Tab PO PRN ×2 (14:45→20:49)
--- NOTE | 2020-11-24 15:30 | CR ---
INDICATION: Possible fall. Possible trauma. Diffuse pain. TECHNIQUE: Two views of the thoracic spine. FINDINGS: Clearly suboptimal radiographs. While there is no overt evidence for acute fracture or acute malalignment of the thoracic spine, repeat imaging is suggested as subtle fractures could easily be overlooked on these plain films. There is some hypertrophic spurring of the mid to lower thoracic spine. IMPRESSION : Suboptimal radiographs. No overt abnormality of the thoracic spine. Repeat imaging or other imaging modalities may be helpful depending on the clinical picture. Dictated by Jean Paul Worrell MD @ 11/24/2020 3:29:[address] Jean Paul Worrell @ Nov 24 2020 3:29PM
--- NOTE | 2020-11-24 15:30 | CR ---
INDICATION: Possible fall. Possible trauma. Diffuse pain. TECHNIQUE: Two views of the cervical spine. FINDINGS: Significantly suboptimal radiographs particularly the lateral view. C1, C2, and C3 are seen on the lateral view. C4 is barely visualized. The upper most cervical spine is grossly unremarkable without fractures or prevertebral soft tissue swelling. On the AP view there is evidence for multilevel degenerative facet arthropathy. The medial clavicular heads are unremarkable. The lung apices are clear. IMPRESSION: Clearly suboptimal radiographs as most of the cervical spine is not included on the lateral view. Repeat imaging with CT or MRI may be helpful depending on the clinical picture. Dictated by Jean Paul Worrell MD @ 11/24/2020 3:28:[address] Jean Paul Worrell @ Nov 24 2020 3:28PM
[2020-11-25] MEDS: Acetaminophen/oxyCODONE 325-5 MG Tab PO PRN ×3 (02:44→16:03)
[2020-11-25 06:27] LABS: CARBON DIOXIDE,CO2 25.5 mmol/L (21.0-32.0); POTASSIUM,K 4.5 mmol/L (3.5-5.1)
[2020-11-25] MEDS: Tamsulosin 0.4 MG Cap.ER PO SCH ×2 (08:32→17:08)
[2020-11-25] MEDS: Lactated Ringers 1,000 ML IV SCH (08:34)
[2020-11-25] MEDS ORDERED: amLODIPine 5 MG Tab PO SCH (09:00)
[2020-11-25] MEDS: Finasteride 5 MG Tab PO SCH (10:53)
--- NOTE | 2020-11-25 16:25 | PCM.PN ---
- General Info Date of Service: 11/25/20 Admission Dx/Problem (Free Text): Admission Diagnosis/Problem Admission Diagnosis/Problem Fall Subjective Update: 80-year-old male with past medical history of CKD, recently had cataract surgery of the right eye, had not been eating much or drinking much since. Patient came into the ED status post fall causing him left upper back pain, bilateral shoulder pain. All imaging studies demonstrated no acute fractures. Patient was several times last night with an increased urinary frequency, however unable to void within 50 mL at a time. Patient states he is tired from this. Per nursing bladder scan indicated 534 cc with urgency to go. Therefore [place] catheter was successfully inserted and has been intact and draining appropriately. This morning patient was seen at bedside resting comfortably, expressing fatigue from lack of sleep overnight. Otherwise expressed that he is in no acute distress. All questions and concerns were addressed at bedside. Functional Status: Reports: Pain Controlled, Tolerating Diet - Review of Systems General: Reports: No Symptoms HEENT: Reports: No Symptoms Pulmonary: Reports: No Symptoms Cardiovascular: Reports: No Symptoms Gastrointestinal: Reports: No Symptoms Genitourinary: Reports: No Symptoms Musculoskeletal: Reports: No Symptoms Skin: Reports: No Symptoms Neurological: Reports: No Symptoms Psychiatric: Reports: No Symptoms - Patient Data Vitals - Most Recent: Last Vital Signs Temp 97.6 F 11/25/20 16:06 Pulse 86 11/25/20 16:06 Resp 17 11/25/20 16:06 BP 92/71 11/25/20 16:06 Pulse Ox 91 L 11/25/20 16:06 Weight - Most Recent: 152 lb 1.6 oz I&O - Last 24 Hours: Intake & Output 11/25/20 11/25/20 11/25/20 06:59 14:59 22:59 Intake Total 380 Output Total 80 Balance -40$ P Lab Results Last 24 Hours: Laboratory Results - last 24 hr 11/25/20 11/25/20 11/25/20 Range/Units 05:40 05:40 05:40 WBC 11.12 H (4.0-11.0) K/uL RBC 4.18 L (4.50-5.90) M/uL Hgb 13.5 (13.0-17.0) g/dL Hct 40.4 (38.0-50.0) % MCV 96.7 (80.0-98.0) fL MCH 32.3 H (27.0-32.0) pg MCHC 33.4 (31.0-37.0) g/dL RDW Std Deviation 48.3 (28.0-62.0) fl RDW Coeff of [place] 14 (11.0-15.0) % Plt Count 195 (150-400) K/uL MPV 9.70 (7.40-12.00) fL Neut % (Auto) 77.9 (48.0-80.0) % Lymph % (Auto) 11.1 L (16.0-40.0) % [place] % (Auto) 8.3 (0.0-15.0) % Eos % (Auto) 2.4 (0.0-7.0) % Baso % (Auto) 0.3 (0.0-1.5) % Neut # (Auto) 8.7 H (1.4-5.7) K/uL Lymph # (Auto) 1.2 (0.6-2.4) K/uL [place] # (Auto) 0.9 H (0.0-0.8) K/uL Eos # (Auto) 0.3 (0.0-0.7) K/uL Baso # (Auto) 0.0 (0.0-0.1) K/uL Nucleated RBC % 0.0 /100WBC Nucleated RBCs # 0 K/uL Sodium 141 (136-148) mmol/L Potassium 4.5 (3.5-5.1) mmol/L Chloride 107 (98-107) mmol/L Carbon Dioxide 25.5 (21.0-32.0) mmol/L BUN 22 H (7.0-18.0) mg/dL Creatinine 1.4 H (0.8-1.3) mg/dL Est Cr Clr Drug Dosing 37.98 mL/min Estimated GFR (MDRD) 48.8 ml/min Glucose 90 (74-106) mg/dL Calcium 8.3 L (8.5-10.1) mg/dL Phosphorus 3.4 (2.6-4.7) mg/dL Magnesium 1.8 (1.8-2.4) mg/dL Total Bilirubin 0.5 (0.2-1.0) mg/dL AST 19 (15-37) IU/L ALT 14 (14-63) IU/L Alkaline Phosphatase 55 (46-116) U/L Total Protein 6.3 L (6.4-8.2) g/dL Albumin 3.1 L (3.4-5.0) g/dL Globulin 3.2 (2.6-4.0) g/dL Albumin/Globulin Ratio 1.0 (0.9-1.6) PSA Screen 1.07 (0.05-4.00) ng/mL Med Orders - Current: Current Medications Acetaminophen (Acetaminophen 325 Mg Tab) 325 mg PO Q4H PRN PRN Reason: Pain (mild 1-3) Last Admin: 11/24/20 18:35 Dose: 325 mg Documented by: Albuterol/Ipratropium (Albuterol/Ipratropium 3.0-0.5 Mg/3 Ml Neb Soln) 3 ml NEB Q4HRRT PRN PRN Reason: Shortness Of Breath/wheezing Amlodipine Besylate (Amlodipine 5 Mg Tab) 10 mg PO DAILY [facility] Last Admin: 11/25/20 08:32 Dose: 10 mg Documented by: Finasteride (Finasteride 5 Mg Tab) 5 mg PO DAILY [facility] Last Admin: 11/25/20 10:53 Dose: 5 mg Documented by: Labetalol HCl (Labetalol 100 Mg/20 Ml Mdv) 20 mg IVPUSH Q4H PRN; Protocol PRN Reason: Hypertension Lidocaine (Lidocaine 5% 700 Mg Patch) 700 mg TRDERM Q24H [facility] Last Admin: 11/24/20 23:03 Dose: 700 mg Documented by: Ondansetron HCl (Ondansetron 4 Mg/2 Ml Sdv) 4 mg IVPUSH Q4H PRN PRN Reason: Nausea/Vomiting Last Admin: 11/24/20 18:36 Dose: 4 mg Documented by: Oxycodone/Acetaminophen (Acetaminophen/Oxycodone 325-5 Mg Tab) 1 tab PO Q6H PRN PRN Reason: Pain (moderate 4-6) Last Admin: 11/25/20 16:03 Dose: 1 tab Documented by: Tamsulosin HCl ([facility]osin 0.4 Mg Cap.Er) [facility] Last Admin: 11/25/20 08:32 Dose: 0.4 mg Documented by: Discontinued Medications Acetaminophen (Acetaminophen 325 Mg Tab) 650 mg PO Q4H PRN PRN Reason: Pain (Mild 1-3)/fever Last Admin: 11/24/20 12:33 Dose: 650 mg Documented by: Amlodipine Besylate (Amlodipine 5 Mg Tab) 5 mg PO DAILY [facility] Last Admin: 11/24/20 08:28 Dose: 5 mg Documented by: Sodium Chloride (Normal Saline) 1,000 mls @ 999 mls/hr IV STAT ONE Stop: 11/23/20 20:40 Last Admin: 11/23/20 20:19 Dose: 999 mls/hr Documented by: Lactated Ringer's (Ringers, Lactated) 1,000 mls @ 125 mls/hr IV ASDIRECTED [facility] Last Admin: 11/25/20 08:34 Dose: 125 mls/hr Documented by: Ketorolac Tromethamine (Ketorolac 30 Mg/Ml Sdv) 30 mg IVPUSH ONETIME ONE Stop: 11/23/20 19:47 Last Admin: 11/23/20 20:19 Dose: 30 mg Documented by: Tramadol HCl (Tramadol 50 Mg Tab) 50 mg PO ONETIME ONE Stop: 11/23/20 17:12 Last Admin: 11/23/20 17:50 Dose: 50 mg Documented by: - Exam Quality Assessment: DVT Prophylaxis Urinary Catheter Total Time: 1Days 7Hours General: Alert, Oriented, Cooperative, No Acute Distress HEENT: Pupils Equal, Pupils Reactive, EOMI, Mucous Membr. Moist/[place] Neck: Supple, No JVD Lungs: Clear to Auscultation, Normal Respiratory Effort Cardiovascular: Regular Rate, Regular Rhythm GI/Abdominal Exam: Normal Bowel Sounds, Soft, Non-Tender Back Exam: Vertebral Tenderness (Improved) Extremities: Normal Inspection, Normal Range of Motion, No Pedal Edema, Normal Capillary Refill Peripheral Pulses: 2+: Carotid (L), Carotid (R), Dorsalis Pedis (L), Dorsalis Pedis (R) Skin: Warm, Dry, Intact Neurological: No New Focal Deficit Psy/Mental Status: Alert, Normal Affect, Normal Mood - Patient Data Lab Results Last 24 hrs: Laboratory Results - last 24 hr 11/25/20 11/25/20 11/25/20 Range/Units 05:40 05:40 05:40 WBC 11.12 H (4.0-11.0) K/uL RBC 4.18 L (4.50-5.90) M/uL Hgb 13.5 (13.0-17.0) g/dL Hct 40.4 (38.0-50.0) % MCV 96.7 (80.0-98.0) fL MCH 32.3 H (27.0-32.0) pg MCHC 33.4 (31.0-37.0) g/dL RDW Std Deviation 48.3 (28.0-62.0) fl RDW Coeff of [place] 14 (11.0-15.0) % Plt Count 195 (150-400) K/uL MPV 9.70 (7.40-12.00) fL Neut % (Auto) 77.9 (48.0-80.0) % Lymph % (Auto) 11.1 L (16.0-40.0) % [place] % (Auto) 8.3 (0.0-15.0) % Eos % (Auto) 2.4 (0.0-7.0) % Baso % (Auto) 0.3 (0.0-1.5) % Neut # (Auto) 8.7 H (1.4-5.7) K/uL Lymph # (Auto) 1.2 (0.6-2.4) K/uL [place] # (Auto) 0.9 H (0.0-0.8) K/uL Eos # (Auto) 0.3 (0.0-0.7) K/uL Baso # (Auto) 0.0 (0.0-0.1) K/uL Nucleated RBC % 0.0 /100WBC Nucleated RBCs # 0 K/uL Sodium 141 (136-148) mmol/L Potassium 4.5 (3.5-5.1) mmol/L Chloride 107 (98-107) mmol/L Carbon Dioxide 25.5 (21.0-32.0) mmol/L BUN 22 H (7.0-18.0) mg/dL Creatinine 1.4 H (0.8-1.3) mg/dL Est Cr Clr Drug Dosing 37.98 mL/min Estimated GFR (MDRD) 48.8 ml/min Glucose 90 (74-106) mg/dL Calcium 8.3 L (8.5-10.1) mg/dL Phosphorus 3.4 (2.6-4.7) mg/dL Magnesium 1.8 (1.8-2.4) mg/dL Total Bilirubin 0.5 (0.2-1.0) mg/dL AST 19 (15-37) IU/L ALT 14 (14-63) IU/L Alkaline Phosphatase 55 (46-116) U/L Total Protein 6.3 L (6.4-8.2) g/dL Albumin 3.1 L (3.4-5.0) g/dL Globulin 3.2 (2.6-4.0) g/dL Albumin/Globulin Ratio 1.0 (0.9-1.6) PSA Screen 1.07 (0.05-4.00) ng/mL Result Diagrams: 11/25/20 05:40 11/25/20 05:40 Sepsis Event Note - Evaluation Sepsis Screening Result: No Definite Risk - Focused Exam Vital Signs: Vital Signs Temp Pulse Resp BP BP Pulse Ox 11/25/20 16:06 97.6 F 86 17 92/71 91 L 11/25/20 12:00 96.5 F L 95 16 104/74 93 L 11/25/20 08:32 133/77 11/25/20 08:30 97.6 F 104 H 17 133/77 96 - Problem List Review Problem List Initiated/Reviewed/Updated: Yes - My Orders Last 24 Hours: My Active Orders 11/24/20 18:03 Resuscitation Status Routine 11/24/20 19:18 Consult to Home Care [Consult to Home Health] [CONS] Routine 11/25/20 09:00 amLODIPine [Norvasc] 10 mg PO DAILY 11/25/20 11:26 Consult to Case Management/Employee Development Manager [CONS] Routine - Plan Plan:: Change patient status to inpatient Patient is a 80-year-old gentleman admitted status post fall for management of pain and possible syncope although patient denies syncope but had reported previously to his daughter. 1. Status post fall: Possibly secondary to dehydration as patient had been decreasing p.o. intake, or possible syncopal episode. As patient has no signs of anemia, hypoxia, hypoglycemia and does not complain of dizziness or syncope. Vitally stable except for elevated blood pressure 172/86 this morning, Chest x-rays, x-rays of the shoulders demonstrated no acute fractures, CT head: Negative for any intracranial bleed or fractures. Patient was started on fluids upon admission since he appeared very dry and possibly dehydrated. Patient tolerates p.o. appropriately will consider discontinuing fluids. Creatinine 1.6, continue appropriate hydration p.o. or IV as necessary. PT consult evaluate and treat for strengthening/ambulate. 2. Leukocytosis: Resolved, afebrile 3. Hypertension: 172/86 this morning patient was started on amlodipine 5 mg, will increase dose to 10 mg daily. Pain could potentially be contributing to high blood pressure, also possible underlying history of CKD. Patient denies any history of high blood pressure in the past and is not on any medications. Continue home dose of tamsulosin for BPH which also help with blood pressure. I have seen and evaluated the patient and agree with the residents note unless specified in my note
[2020-11-25] MEDS: Acetaminophen 325 MG Tab PO PRN ×2 (17:07→21:46)
[2020-11-26] MEDS: Lidocaine 5% 700 MG Patch TRDERM SCH ×2 (00:17→23:43)
[2020-11-26] MEDS: Acetaminophen/oxyCODONE 325-5 MG Tab PO PRN ×3 (01:52→22:55)
[2020-11-26] MEDS: Acetaminophen 325 MG Tab PO PRN ×2 (04:47→16:00)
[2020-11-26 06:26] LABS: CARBON DIOXIDE,CO2 26.3 mmol/L (21.0-32.0); POTASSIUM,K 4.4 mmol/L (3.5-5.1)
[2020-11-26] MEDS: Tamsulosin 0.4 MG Cap.ER PO SCH ×2 (08:10→17:42)
[2020-11-26] MEDS: Finasteride 5 MG Tab PO SCH (08:10)
--- NOTE | 2020-11-26 09:15 | PCM.DCSUM1 ---
Discharge Summary - Discharge Data Discharge Disposition: Home, Self-Care 01 Condition: Stable - Referral to Home Health Primary Care Physician: Jamarcus Sin MD - Patient Summary/Data Consults: Consultations 11/24/20 11:34 PT Evaluation and Treatment [CONS] Routine 11/24/20 19:18 Consult to Home Care [Consult to Home Health] [CONS] Routine 11/25/20 11:26 Consult to Case Management/Sole Seamer [CONS] Routine - Discharge Plan Home Medications: Home Meds Ibuprofen [Advil] 1 tab PO ASDIRECTED PRN 11/23/20 [History] Forms: ED Department Discharge Referrals: Jamarcus Sin MD [Primary Care Provider] - - Patient Data Vitals - Most Recent: Last Vital Signs Temp 97.1 F 11/26/20 04:50 Pulse 85 11/26/20 04:50 Resp 17 11/26/20 04:50 BP 120/62 11/26/20 04:50 Pulse Ox 94 L 11/26/20 04:50 Weight - Most Recent: 152 lb 1.6 oz I&O - Last 24 hours: Intake & Output 11/25/20 11/26/20 11/26/20 22:59 06:59 14:59 Intake Total 1050 500 Output Total 400 200 Balance 650 300 Lab Results - Last 24 hrs: Laboratory Results - last 24 hr 11/25/20 11/26/20 11/26/20 Range/Units 05:40 05:05 05:05 WBC 8.96 (4.0-11.0) K/uL RBC 4.09 L (4.50-5.90) M/uL Hgb 13.0 (13.0-17.0) g/dL Hct 39.9 (38.0-50.0) % MCV 97.6 (80.0-98.0) fL MCH 31.8 (27.0-32.0) pg MCHC 32.6 (31.0-37.0) g/dL RDW Std Deviation 49.5 (28.0-62.0) fl RDW Coeff of Ken 14 (11.0-15.0) % Plt Count 212 (150-400) K/uL MPV 9.80 (7.40-12.00) fL Neut % (Auto) 67.6 (48.0-80.0) % Lymph % (Auto) 17.9 (16.0-40.0) % [place] % (Auto) 9.4 (0.0-15.0) % Eos % (Auto) 4.9 (0.0-7.0) % Baso % (Auto) 0.2 (0.0-1.5) % Neut # (Auto) 6.1 H (1.4-5.7) K/uL Lymph # (Auto) 1.6 (0.6-2.4) K/uL [place] # (Auto) 0.8 (0.0-0.8) K/uL Eos # (Auto) 0.4 (0.0-0.7) K/uL Baso # (Auto) 0.0 (0.0-0.1) K/uL Nucleated RBC % 0.0 /100WBC Nucleated RBCs # 0 K/uL Sodium 141 (136-148) mmol/L Potassium 4.4 (3.5-5.1) mmol/L Chloride 105 (98-107) mmol/L Carbon Dioxide 26.3 (21.0-32.0) mmol/L BUN 25 H (7.0-18.0) mg/dL Creatinine 1.5 H (0.8-1.3) mg/dL Est Cr Clr Drug Dosing 35.44 mL/min Estimated GFR (MDRD) 45.0 ml/min Glucose 93 (74-106) mg/dL Calcium 8.1 L (8.5-10.1) mg/dL Phosphorus 3.0 (2.6-4.7) mg/dL Magnesium 1.9 (1.8-2.4) mg/dL Total Bilirubin 0.5 (0.2-1.0) mg/dL AST 17 (15-37) IU/L ALT 18 (14-63) IU/L Alkaline Phosphatase 53 (46-116) U/L Total Protein 6.5 (6.4-8.2) g/dL Albumin 3.1 L (3.4-5.0) g/dL Globulin 3.4 (2.6-4.0) g/dL Albumin/Globulin Ratio 0.9 (0.9-1.6) PSA Screen 1.07 (0.05-4.00) ng/mL Med Orders - Current: Current Medications Acetaminophen (Acetaminophen 325 Mg Tab) 325 mg PO Q4H PRN PRN Reason: Pain (mild 1-3) Last Admin: 11/26/20 04:47 Dose: 325 mg Documented by: Albuterol/Ipratropium (Albuterol/Ipratropium 3.0-0.5 Mg/3 Ml Neb Soln) 3 ml NEB Q4HRRT PRN PRN Reason: Shortness Of Breath/wheezing Finasteride (Finasteride 5 Mg Tab) 5 mg PO DAILY [facility] Last Admin: 11/26/20 08:10 Dose: 5 mg Documented by: Labetalol HCl (Labetalol 100 Mg/20 Ml Mdv) 20 mg IVPUSH Q4H PRN; Protocol PRN Reason: Hypertension Lidocaine (Lidocaine 5% 700 Mg Patch) 700 mg TRDERM Q24H [facility] Last Admin: 11/26/20 00:17 Dose: 700 mg Documented by: Ondansetron HCl (Ondansetron 4 Mg/2 Ml Sdv) 4 mg IVPUSH Q4H PRN PRN Reason: Nausea/Vomiting Last Admin: 11/24/20 18:36 Dose: 4 mg Documented by: Oxycodone/Acetaminophen (Acetaminophen/Oxycodone 325-5 Mg Tab) 1 tab PO Q6H PRN PRN Reason: Pain (moderate 4-6) Last Admin: 11/26/20 01:52 Dose: 1 tab Documented by: Tamsulosin HCl (Tamsulosin 0.4 Mg Cap.Er) 0.4 mg PO BIDPC [facility] Last Admin: 11/26/20 08:10 Dose: 0.4 mg Documented by: Discontinued Medications Acetaminophen (Acetaminophen 325 Mg Tab) 650 mg PO Q4H PRN PRN Reason: Pain (Mild 1-3)/fever Last Admin: 11/24/20 12:33 Dose: 650 mg Documented by: Amlodipine Besylate (Amlodipine 5 Mg Tab) 5 mg PO DAILY [facility] Last Admin: 11/24/20 08:28 Dose: 5 mg Documented by: Amlodipine Besylate (Amlodipine 5 Mg Tab) 10 mg PO DAILY [facility] Last Admin: 11/25/20 08:32 Dose: 10 mg Documented by: Sodium Chloride (Normal Saline) 1,000 mls @ 999 mls/hr IV STAT ONE Stop: 11/23/20 20:40 Last Admin: 11/23/20 20:19 Dose: 999 mls/hr Documented by: Lactated Ringer's (Ringers, Lactated) 1,000 mls @ 125 mls/hr IV ASDIRECTED [facility] Last Admin: 11/25/20 08:34 Dose: 125 mls/hr Documented by: Ketorolac Tromethamine (Ketorolac 30 Mg/Ml Sdv) 30 mg IVPUSH ONETIME ONE Stop: 11/23/20 19:47 Last Admin: 11/23/20 20:19 Dose: 30 mg Documented by: Tramadol HCl (Tramadol 50 Mg Tab) 50 mg PO ONETIME ONE Stop: 11/23/20 17:12 Last Admin: 11/23/20 17:50 Dose: 50 mg Documented by:
--- NOTE | 2020-11-26 11:28 | PCM.PN ---
- General Info Date of Service: 11/26/20 Admission Dx/Problem (Free Text): Admission Diagnosis/Problem Admission Diagnosis/Problem Fall Subjective Update: 80-year-old male with past medical history of CKD, recently had cataract surgery of the right eye, had not been eating much or drinking much since. Patient came into the ED status post fall causing him left upper back pain, bilateral shoulder pain. All imaging studies demonstrated no acute fractures. In crystal tion patient continues to have nocturia, requiring indwelling catheter. Had removed catheter yesterday, therefore was up several times last night unable to excrete more than 100 cc an time. This morning patient complains of dysuria, but denies any abdominal or flank pain, fever or chills. Functional Status: Reports: Tolerating Diet, Ambulating - Review of Systems General: Reports: No Symptoms HEENT: Reports: No Symptoms Pulmonary: Reports: No Symptoms Cardiovascular: Reports: No Symptoms Gastrointestinal: Reports: No Symptoms Genitourinary: Reports: No Symptoms Musculoskeletal: Reports: No Symptoms Skin: Reports: No Symptoms Neurological: Reports: No Symptoms Psychiatric: Reports: No Symptoms - Patient Data Vitals - Most Recent: Last Vital Signs Temp 98.2 F 11/26/20 08:00 Pulse 84 11/26/20 08:00 Resp 18 11/26/20 08:00 BP 136/82 11/26/20 08:00 Pulse Ox 95 11/26/20 08:00 Weight - Most Recent: 152 lb 1.6 oz I&O - Last 24 Hours: Intake & Output 11/25/20 11/26/20 11/26/20 22:59 06:59 14:59 Intake Total 1050 500 Output Total 400 200 Balance 650 300 Lab Results Last 24 Hours: Laboratory Results - last 24 hr 11/26/20 11/26/20 Range/Units 05:05 05:05 WBC 8.96 (4.0-11.0) K/uL RBC 4.09 L (4.50-5.90) M/uL Hgb 13.0 (13.0-17.0) g/dL Hct 39.9 (38.0-50.0) % MCV 97.6 (80.0-98.0) fL MCH 31.8 (27.0-32.0) pg MCHC 32.6 (31.0-37.0) g/dL RDW Std Deviation 49.5 (28.0-62.0) fl RDW Coeff of Ken 14 (11.0-15.0) % Plt Count 212 (150-400) K/uL MPV 9.80 (7.40-12.00) fL Neut % (Auto) 67.6 (48.0-80.0) % Lymph % (Auto) 17.9 (16.0-40.0) % [place] % (Auto) 9.4 (0.0-15.0) % Eos % (Auto) 4.9 (0.0-7.0) % Baso % (Auto) 0.2 (0.0-1.5) % Neut # (Auto) 6.1 H (1.4-5.7) K/uL Lymph # (Auto) 1.6 (0.6-2.4) K/uL [place] # (Auto) 0.8 (0.0-0.8) K/uL Eos # (Auto) 0.4 (0.0-0.7) K/uL Baso # (Auto) 0.0 (0.0-0.1) K/uL Nucleated RBC % 0.0 /100WBC Nucleated RBCs # 0 K/uL Sodium 141 (136-148) mmol/L Potassium 4.4 (3.5-5.1) mmol/L Chloride 105 (98-107) mmol/L Carbon Dioxide 26.3 (21.0-32.0) mmol/L BUN 25 H (7.0-18.0) mg/dL Creatinine 1.5 H (0.8-1.3) mg/dL Est Cr Clr Drug Dosing 35.44 mL/min Estimated GFR (MDRD) 45.0 ml/min Glucose 93 (74-106) mg/dL Calcium 8.1 L (8.5-10.1) mg/dL Phosphorus 3.0 (2.6-4.7) mg/dL Magnesium 1.9 (1.8-2.4) mg/dL Total Bilirubin 0.5 (0.2-1.0) mg/dL AST 17 (15-37) IU/L ALT 18 (14-63) IU/L Alkaline Phosphatase 53 (46-116) U/L Total Protein 6.5 (6.4-8.2) g/dL Albumin 3.1 L (3.4-5.0) g/dL Globulin 3.4 (2.6-4.0) g/dL Albumin/Globulin Ratio 0.9 (0.9-1.6) Med Orders - Current: Current Medications Acetaminophen (Acetaminophen 325 Mg Tab) 325 mg PO Q4H PRN PRN Reason: Pain (mild 1-3) Last Admin: 11/26/20 04:47 Dose: 325 mg Documented by: Albuterol/Ipratropium (Albuterol/Ipratropium 3.0-0.5 Mg/3 Ml Neb Soln) 3 ml NEB Q4HRRT PRN PRN Reason: Shortness Of Breath/wheezing Finasteride (Finasteride 5 Mg Tab) 5 mg PO DAILY [facility] Last Admin: 11/26/20 08:10 Dose: 5 mg Documented by: Labetalol HCl (Labetalol 100 Mg/20 Ml Mdv) 20 mg IVPUSH Q4H PRN; Protocol PRN Reason: Hypertension Lidocaine (Lidocaine 5% 700 Mg Patch) 700 mg TRDERM Q24H [facility] Last Admin: 11/26/20 00:17 Dose: 700 mg Documented by: Ondansetron HCl (Ondansetron 4 Mg/2 Ml Sdv) 4 mg IVPUSH Q4H PRN PRN Reason: Nausea/Vomiting Last Admin: 11/24/20 18:36 Dose: 4 mg Documented by: Oxycodone/Acetaminophen (Acetaminophen/Oxycodone 325-5 Mg Tab) 1 tab PO Q6H PRN PRN Reason: Pain (moderate 4-6) Last Admin: 11/26/20 10:14 Dose: 1 tab Documented by: Tamsulosin HCl (Tamsulosin 0.4 Mg Cap.Er) 0.4 mg PO BIDPC [facility] Last Admin: 11/26/20 08:10 Dose: 0.4 mg Documented by: Discontinued Medications Acetaminophen (Acetaminophen 325 Mg Tab) 650 mg PO Q4H PRN PRN Reason: Pain (Mild 1-3)/fever Last Admin: 11/24/20 12:33 Dose: 650 mg Documented by: Amlodipine Besylate (Amlodipine 5 Mg Tab) 5 mg PO DAILY [facility] Last Admin: 11/24/20 08:28 Dose: 5 mg Documented by: Amlodipine Besylate (Amlodipine 5 Mg Tab) 10 mg PO DAILY [facility] Last Admin: 11/25/20 08:32 Dose: 10 mg Documented by: Sodium Chloride (Normal Saline) 1,000 mls @ 999 mls/hr IV STAT ONE Stop: 11/23/20 20:40 Last Admin: 11/23/20 20:19 Dose: 999 mls/hr Documented by: Lactated Ringer's (Ringers, Lactated) 1,000 mls @ 125 mls/hr IV ASDIRECTED [facility] Last Admin: 11/25/20 08:34 Dose: 125 mls/hr Documented by: Ketorolac Tromethamine (Ketorolac 30 Mg/Ml Sdv) 30 mg IVPUSH ONETIME ONE Stop: 11/23/20 19:47 Last Admin: 11/23/20 20:19 Dose: 30 mg Documented by: Tramadol HCl (Tramadol 50 Mg Tab) 50 mg PO ONETIME ONE Stop: 11/23/20 17:12 Last Admin: 11/23/20 17:50 Dose: 50 mg Documented by: - Exam Quality Assessment: Supplemental Oxygen Urinary Catheter Total Time: 1Days 7Hours General: Alert, Oriented, Mild Distress HEENT: Pupils Equal, Pupils Reactive, EOMI, Mucous Membr. Moist/[place] Neck: Supple Lungs: Clear to Auscultation, Normal Respiratory Effort Cardiovascular: Regular Rate (Each any intermingled like it), Regular Rhythm GI/Abdominal Exam: Normal Bowel Sounds, Soft, Non-Tender (Lump plan) Extremities: Normal Inspection, Normal Range of Motion, No Pedal Edema, Normal Capillary Refill Peripheral Pulses: 1+: Dorsalis Pedis (L), Dorsalis Pedis (R), 2+: Carotid (L), Carotid (R) Skin: Warm, Dry, Intact Neurological: No New Focal Deficit Psy/Mental Status: Alert, Normal Affect, Normal Mood - Patient Data Lab Results Last 24 hrs: Laboratory Results - last 24 hr 11/26/20 11/26/20 Range/Units 05:05 05:05 WBC 8.96 (4.0-11.0) K/uL RBC 4.09 L (4.50-5.90) M/uL Hgb 13.0 (13.0-17.0) g/dL Hct 39.9 (38.0-50.0) % MCV 97.6 (80.0-98.0) fL MCH 31.8 (27.0-32.0) pg MCHC 32.6 (31.0-37.0) g/dL RDW Std Deviation 49.5 (28.0-62.0) fl RDW Coeff of Ken 14 (11.0-15.0) % Plt Count 212 (150-400) K/uL MPV 9.80 (7.40-12.00) fL Neut % (Auto) 67.6 (48.0-80.0) % Lymph % (Auto) 17.9 (16.0-40.0) % [place] % (Auto) 9.4 (0.0-15.0) % Eos % (Auto) 4.9 (0.0-7.0) % Baso % (Auto) 0.2 (0.0-1.5) % Neut # (Auto) 6.1 H (1.4-5.7) K/uL Lymph # (Auto) 1.6 (0.6-2.4) K/uL [place] # (Auto) 0.8 (0.0-0.8) K/uL Eos # (Auto) 0.4 (0.0-0.7) K/uL Baso # (Auto) 0.0 (0.0-0.1) K/uL Nucleated RBC % 0.0 /100WBC Nucleated RBCs # 0 K/uL Sodium 141 (136-148) mmol/L Potassium 4.4 (3.5-5.1) mmol/L Chloride 105 (98-107) mmol/L Carbon Dioxide 26.3 (21.0-32.0) mmol/L BUN 25 H (7.0-18.0) mg/dL Creatinine 1.5 H (0.8-1.3) mg/dL Est Cr Clr Drug Dosing 35.44 mL/min Estimated GFR (MDRD) 45.0 ml/min Glucose 93 (74-106) mg/dL Calcium 8.1 L (8.5-10.1) mg/dL Phosphorus 3.0 (2.6-4.7) mg/dL Magnesium 1.9 (1.8-2.4) mg/dL Total Bilirubin 0.5 (0.2-1.0) mg/dL AST 17 (15-37) IU/L ALT 18 (14-63) IU/L Alkaline Phosphatase 53 (46-116) U/L Total Protein 6.5 (6.4-8.2) g/dL Albumin 3.1 L (3.4-5.0) g/dL Globulin 3.4 (2.6-4.0) g/dL Albumin/Globulin Ratio 0.9 (0.9-1.6) Result Diagrams: 11/26/20 05:05 11/26/20 05:05 Sepsis Event Note - Evaluation Sepsis Screening Result: No Definite Risk - Focused Exam Vital Signs: Vital Signs Temp Pulse Resp BP Pulse Ox 11/26/20 08:00 98.2 F 84 18 136/82 95 11/26/20 04:50 97.1 F 85 17 120/62 94 L 11/26/20 00:16 97.1 F 84 16 153/85 H 94 L - Problem List Review Problem List Initiated/Reviewed/Updated: Yes - My Orders Last 24 Hours: My Active Orders 11/25/20 11:26 Consult to Case Management/Plant Maintenance Manager [CONS] Routine 11/25/20 16:26 Patient Status [ADT] Routine Cardiac Monitoring [RC] . DIRECTED - Plan Plan:: Change patient status to inpatient Patient is a 80-year-old gentleman admitted status post fall, with concern for inability to care for himself and urinary retention. 1. Status post fall: Possibly secondary to dehydration as patient had been decreasing p.o. intake, or possible syncopal episode. As patient has no signs of anemia, hypoxia, hypoglycemia and does not complain of dizziness or syncope. Was stable while am bulating this morning. No significant weakness appreciated on physical examination. Patient continues to complain of pain in his shoulder ribs and back from the fall, however all imaging studies indicated no signs of fracture. Patient currently receiving lidocaine, Tylenol and 5-325 Percocet for pain control. 2 MANSOOR: Improved since admission BUN 25, creatinine 1.5 today, patient is tolerating p.o. and encourage containing hydration. 3. Urinary retention: Pelvic ultrasound performed, official read results are pending, suspected BPH contributing to urinary retention, patient was also started on finasteride in addition to home dose of tamsulosin. Bladder scan this morning indicated 550 cc of fluid. Repeat bladder scan at noon demonstrated similar findings therefore patient appears to be retaining urine and would likely benefit from indwelling urinary catheter as discussed with patient as his family. Patient stated understanding and agreed. Urinary retention likely being further exacerbated by the fact that previously patient was aggressively removing catheter causing inflammation to the urethra. Furthermore, patient's pain in his back, shoulders and ribs is being controlled by pain medication that could also be exacerbating his affect. 4. Hypertension: Resolved, will continue to monitor and evaluate need for blood pressure medication. Patient denied any previous history of blood pressure medication, will closely monitor and consider accordingly. Continue home dose of tamsulosin for BPH which also help with blood pressure.
--- NOTE | 2020-11-26 11:30 | US ---
INDICATION: Post Mobley catheter removal. TECHNIQUE: Ultrasound of the bladder complete. Avila-scale sonographic images were acquired of the urinary bladder. COMPARISON: CT chest/abdomen/pelvis dated 12/08/2013. FINDINGS: Bladder: Postvoid residual of 64.3 cc. Mild amount of dependent echogenic material is present within the bladder lumen, which may reflect debris or hemorrhagic products given recent instrumentation. Prostate: Prostatomegaly, approximate prostate volume of 52.5 cc. IMPRESSION: 1. Postvoid residual of 64.3 cc. 2. Mild amount of dependent echogenic material present within the bladder lumen, likely reflective of debris or hemorrhagic products. 3. Prostatomegaly. Dictated by Lynne Davis MD @ 11/26/2020 11:28:[address] Lynne Davis @ Nov 26 2020 11:28AM
[2020-11-26] MEDS ORDERED: Docusate Sodium 100 MG Cap PO PRN (20:00)
[2020-11-26] MEDS ORDERED: Polyethylene Glycol 3350 Powder 17 GM Packet PO PRN (23:27)
[2020-11-27 06:52] LABS: CARBON DIOXIDE,CO2 22.8 mmol/L (21.0-32.0); POTASSIUM,K 4.3 mmol/L (3.5-5.1)
[2020-11-27] MEDS: Finasteride 5 MG Tab PO SCH (09:10)
[2020-11-27] MEDS: Tamsulosin 0.4 MG Cap.ER PO SCH ×2 (09:10→17:05)
[2020-11-27] MEDS: Acetaminophen 325 MG Tab PO PRN ×2 (09:11→22:32)
[2020-11-27] MEDS ORDERED: Bisacodyl 10 MG Supp RECTAL ONE (09:19)
[2020-11-27] MEDS: Acetaminophen/oxyCODONE 325-5 MG Tab PO PRN ×2 (10:30→17:04)
--- NOTE | 2020-11-27 10:54 | PCM.PN ---
- General Info Date of Service: 11/27/20 Admission Dx/Problem (Free Text): Admission Diagnosis/Problem Admission Diagnosis/Problem Fall Subjective Update: Reports he is continuing to have rib cage pain. Denies any other chest pain or shortness of breath. Reports that the pain hurts when he moves. Tolerating Mobley okay understands that this needs to be in to help drain his bladder and relieve pressure on his kidneys. Denies any other concerns. Functional Status: Reports: Pain Controlled, Tolerating Diet, Ambulating - Review of Systems General: Reports: No Symptoms. Denies: Weakness, Fatigue HEENT: Reports: No Symptoms. Denies: Headaches, Sore Throat, Visual Changes Pulmonary: Reports: No Symptoms. Denies: Shortness of Breath Cardiovascular: Reports: No Symptoms. Denies: Chest Pain Gastrointestinal: Reports: No Symptoms. Denies: Abdominal Pain, Nausea, Vomiting Genitourinary: Reports: No Symptoms Musculoskeletal: Reports: Other (Rib cage pain left side) Neurological: Reports: No Symptoms Psychiatric: Reports: No Symptoms - Patient Data Vitals - Most Recent: Last Vital Signs Temp 98.1 F 11/27/20 07:53 Pulse 96 11/27/20 07:53 Resp 16 11/27/20 07:53 BP 122/76 11/27/20 07:53 Pulse Ox 94 L 11/27/20 07:53 Weight - Most Recent: 68.991 kg I&O - Last 24 Hours: Intake & Output 11/26/20 11/27/20 11/27/20 22:59 06:59 14:59 Intake Total 560 200 Output Total 67 35 Balance -11 -13$ @ Lab Results Last 24 Hours: Laboratory Results - last 24 hr 11/27/20 11/27/20 Range/Units 05:12 05:12 WBC 10.70 (4.0-11.0) K/uL RBC 4.09 L (4.50-5.90) M/uL Hgb 13.2 (13.0-17.0) g/dL Hct 39.7 (38.0-50.0) % MCV 97.1 (80.0-98.0) fL MCH 32.3 H (27.0-32.0) pg MCHC 33.2 (31.0-37.0) g/dL RDW Std Deviation 49.2 (28.0-62.0) fl RDW Coeff of Ken 14 (11.0-15.0) % Plt Count 213 (150-400) K/uL MPV 9.80 (7.40-12.00) fL Neut % (Auto) 78.6 (48.0-80.0) % Lymph % (Auto) 8.8 L (16.0-40.0) % [place] % (Auto) 9.5 (0.0-15.0) % Eos % (Auto) 2.7 (0.0-7.0) % Baso % (Auto) 0.4 (0.0-1.5) % Neut # (Auto) 8.4 H (1.4-5.7) K/uL Lymph # (Auto) 0.9 (0.6-2.4) K/uL [place] # (Auto) 1.0 H (0.0-0.8) K/uL Eos # (Auto) 0.3 (0.0-0.7) K/uL Baso # (Auto) 0.0 (0.0-0.1) K/uL Nucleated RBC % 0.0 /100WBC Nucleated RBCs # 0 K/uL Sodium 139 (136-148) mmol/L Potassium 4.3 (3.5-5.1) mmol/L Chloride 104 (98-107) mmol/L Carbon Dioxide 22.8 (21.0-32.0) mmol/L BUN 27 H (7.0-18.0) mg/dL Creatinine 1.4 H (0.8-1.3) mg/dL Est Cr Clr Drug Dosing 37.98 mL/min Estimated GFR (MDRD) 48.8 ml/min Glucose 99 (74-106) mg/dL Calcium 8.6 (8.5-10.1) mg/dL Phosphorus 2.9 (2.6-4.7) mg/dL Magnesium 2.0 (1.8-2.4) mg/dL Total Bilirubin 0.6 (0.2-1.0) mg/dL AST 19 (15-37) IU/L ALT 18 (14-63) IU/L Alkaline Phosphatase 53 (46-116) U/L Total Protein 6.7 (6.4-8.2) g/dL Albumin 3.2 L (3.4-5.0) g/dL Globulin 3.5 (2.6-4.0) g/dL Albumin/Globulin Ratio 0.9 (0.9-1.6) Med Orders - Current: Current Medications Acetaminophen (Acetaminophen 325 Mg Tab) 325 mg PO Q4H PRN PRN Reason: Pain (mild 1-3) Last Admin: 11/27/20 09:11 Dose: 325 mg Documented by: Albuterol/Ipratropium (Albuterol/Ipratropium 3.0-0.5 Mg/3 Ml Neb Soln) 3 ml NEB Q4HRRT PRN PRN Reason: Shortness Of Breath/wheezing Docusate Sodium (Docusate Sodium 100 Mg Cap) 100 mg PO Q12H PRN PRN Reason: Constipation Last Admin: 11/26/20 21:44 Dose: 100 mg Documented by: Finasteride (Finasteride 5 Mg Tab) 5 mg PO DAILY [facility] Last Admin: 11/27/20 09:10 Dose: 5 mg Documented by: Labetalol HCl (Labetalol 100 Mg/20 Ml Mdv) 20 mg IVPUSH Q4H PRN; Protocol PRN Reason: Hypertension Lidocaine (Lidocaine 5% 700 Mg Patch) 700 mg TRDERM Q24H [facility] Last Admin: 11/26/20 23:43 Dose: 700 mg Documented by: Ondansetron HCl (Ondansetron 4 Mg/2 Ml Sdv) 4 mg IVPUSH Q4H PRN PRN Reason: Nausea/Vomiting Last Admin: 11/24/20 18:36 Dose: 4 mg Documented by: Oxycodone/Acetaminophen (Acetaminophen/Oxycodone 325-5 Mg Tab) 1 tab PO Q6H PRN PRN Reason: Pain (moderate 4-6) Last Admin: 11/27/20 10:30 Dose: 1 tab Documented by: Polyethylene Glycol (Polyethylene Glycol 3350 Powder 17 Gm Packet) 17 gm PO BEDTIME PRN PRN Reason: Constipation Last Admin: 11/26/20 23:52 Dose: 17 gm Documented by: Tamsulosin HCl ([facility] 0.4 Mg [facility]) [facility] Last Admin: 11/27/20 09:10 Dose: 0.4 mg Documented by: Discontinued Medications Acetaminophen (Acetaminophen 325 Mg Tab) 650 mg PO Q4H PRN PRN Reason: Pain (Mild 1-3)/fever Last Admin: 11/24/20 12:33 Dose: 650 mg Documented by: Amlodipine Besylate (Amlodipine 5 Mg Tab) 5 mg PO DAILY [facility] Last Admin: 11/24/20 08:28 Dose: 5 mg Documented by: Amlodipine Besylate (Amlodipine 5 Mg Tab) 10 mg PO DAILY [facility] Last Admin: 11/25/20 08:32 Dose: 10 mg Documented by: Bisacodyl (Bisacodyl 10 Mg Supp) 10 mg RECTAL ONETIME ONE Stop: 11/27/20 09:20 Last Admin: 11/27/20 10:19 Dose: 10 mg Documented by: Sodium Chloride (Normal Saline) 1,000 mls @ 999 mls/hr IV STAT ONE Stop: 11/23/20 20:40 Last Admin: 11/23/20 20:19 Dose: 999 mls/hr Documented by: Lactated Ringer's (Ringers, Lactated) 1,000 mls @ 125 mls/hr IV ASDIRECTED [facility] Last Admin: 11/25/20 08:34 Dose: 125 mls/hr Documented by: Ketorolac Tromethamine (Ketorolac 30 Mg/Ml Sdv) 30 mg IVPUSH ONETIME ONE Stop: 11/23/20 19:47 Last Admin: 11/23/20 20:19 Dose: 30 mg Documented by: Tramadol HCl (Tramadol 50 Mg Tab) 50 mg PO ONETIME ONE Stop: 11/23/20 17:12 Last Admin: 11/23/20 17:50 Dose: 50 mg Documented by: - Exam Quality Assessment: Urine Catheter, DVT Prophylaxis. No: Supplemental Oxygen Urinary Catheter Total Time: 0Days 20Hours General: Alert, Oriented, Cooperative, No Acute Distress Neck: Supple Lungs: Clear to Auscultation, Normal Respiratory Effort Cardiovascular: Regular Rate, Regular Rhythm GI/Abdominal Exam: Normal Bowel Sounds, Soft, Non-Tender Back Exam: Normal Inspection, Full Range of Motion Extremities: Normal Inspection, Normal Range of Motion, Non-Tender, Pedal Edema (+150 in the bilateral feet) Neurological: No New Focal Deficit Psy/Mental Status: Alert, Normal Affect, Normal Mood - Patient Data Lab Results Last 24 hrs: Laboratory Results - last 24 hr 11/27/20 11/27/20 Range/Units 05:12 05:12 WBC 10.70 (4.0-11.0) K/uL RBC 4.09 L (4.50-5.90) M/uL Hgb 13.2 (13.0-17.0) g/dL Hct 39.7 (38.0-50.0) % MCV 97.1 (80.0-98.0) fL MCH 32.3 H (27.0-32.0) pg MCHC 33.2 (31.0-37.0) g/dL RDW Std Deviation 49.2 (28.0-62.0) fl RDW Coeff of Ken 14 (11.0-15.0) % Plt Count 213 (150-400) K/uL MPV 9.80 (7.40-12.00) fL Neut % (Auto) 78.6 (48.0-80.0) % Lymph % (Auto) 8.8 L (16.0-40.0) % [place] % (Auto) 9.5 (0.0-15.0) % Eos % (Auto) 2.7 (0.0-7.0) % Baso % (Auto) 0.4 (0.0-1.5) % Neut # (Auto) 8.4 H (1.4-5.7) K/uL Lymph # (Auto) 0.9 (0.6-2.4) K/uL [place] # (Auto) 1.0 H (0.0-0.8) K/uL Eos # (Auto) 0.3 (0.0-0.7) K/uL Baso # (Auto) 0.0 (0.0-0.1) K/uL Nucleated RBC % 0.0 /100WBC Nucleated RBCs # 0 K/uL Sodium 139 (136-148) mmol/L Potassium 4.3 (3.5-5.1) mmol/L Chloride 104 (98-107) mmol/L Carbon Dioxide 22.8 (21.0-32.0) mmol/L BUN 27 H (7.0-18.0) mg/dL Creatinine 1.4 H (0.8-1.3) mg/dL Est Cr Clr Drug Dosing 37.98 mL/min Estimated GFR (MDRD) 48.8 ml/min Glucose 99 (74-106) mg/dL Calcium 8.6 (8.5-10.1) mg/dL Phosphorus 2.9 (2.6-4.7) mg/dL Magnesium 2.0 (1.8-2.4) mg/dL Total Bilirubin 0.6 (0.2-1.0) mg/dL AST 19 (15-37) IU/L ALT 18 (14-63) IU/L Alkaline Phosphatase 53 (46-116) U/L Total Protein 6.7 (6.4-8.2) g/dL Albumin 3.2 L (3.4-5.0) g/dL Globulin 3.5 (2.6-4.0) g/dL Albumin/Globulin Ratio 0.9 (0.9-1.6) Result Diagrams: 11/27/20 05:12 11/27/20 05:12 Sepsis Event Note - Evaluation Sepsis Screening Result: No Definite Risk - Focused Exam Vital Signs: Vital Signs Temp Pulse Resp BP BP Pulse Ox 11/27/20 07:53 98.1 F 96 16 122/76 94 L 11/27/20 05:00 98 F 82 15 124/72 94 L 11/27/20 01:00 97.5 F 84 16 121/80 94 L - Problem List & Annotations (1) Contusion of rib on left side SNOMED Code(s): 909667761 Code(s): S20.212A - CONTUSION OF LEFT FRONT WALL OF THORAX, INITIAL ENCOUNTER Status: Acute Current Visit: Yes Qualifiers: Encounter type: initial encounter Qualified Code(s): S20.212A - Contusion of left front wall of thorax, initial encounter (2) Fall SNOMED Code(s): 9086510, 114177075 Code(s): W19.XXXA - UNSPECIFIED FALL, INITIAL ENCOUNTER Status: Acute Current Visit: Yes Qualifiers: Encounter type: initial encounter Qualified Code(s): W19.XXXA - Unspecified fall, initial encounter (3) Obstructive uropathy SNOMED Code(s): 8002908 Code(s): N13.9 - OBSTRUCTIVE AND REFLUX UROPATHY, UNSPECIFIED Status: Acute Current Visit: Yes (4) Unsteady gait SNOMED Code(s): 55310971 Code(s): R26.81 - UNSTEADINESS ON FEET Status: Acute Current Visit: Yes (5) BPH (benign prostatic hyperplasia) SNOMED Code(s): 960257303 Code(s): N40.0 - BENIGN PROSTATIC HYPERPLASIA WITHOUT LOWER URINRY TRACT SYMP Status: Chronic Current Visit: Yes (6) CKD (chronic kidney disease) SNOMED Code(s): 800926122 Code(s): N18.9 - CHRONIC KIDNEY DISEASE, UNSPECIFIED Status: Chronic Current Visit: Yes (7) Hypertension SNOMED Code(s): 41022798 Code(s): I10 - ESSENTIAL (PRIMARY) HYPERTENSION Status: Chronic Current Visit: Yes Qualifiers: Hypertension type: unspecified Qualified Code(s): I10 - Essential (primary) hypertension (8) Mild cognitive impairment SNOMED Code(s): 200757692 Code(s): G31.84 - MILD COGNITIVE IMPAIRMENT, SO STATED Status: Chronic Current Visit: Yes - Problem List Review Problem List Initiated/Reviewed/Updated: Yes - Plan Plan:: Patient is a 80-year-old gentleman admitted status post fall, with concern for inability to care for himself and urinary retention. 1. Status post fall: Continue with physical therapy -Patient unable to return home at this time plan for placement in [facility] family is assisting with this. Continues to have left rib cage pain. Lidocaine patch in place continue oxycodone as well as Tylenol. Will DC Percocet and split these to up so he can have more Tylenol if needed. 2 MANSOOR: improving and stable. 3. Urinary retention/ obstructive uropathy: Mobley placed yesterday for retention of urine -We will have follow-up with outpatient urology as well as PCP. -Continue Flomax and finasteride VTE prophylaxis: SCDs and ambulation CODE STATUS: Full code Dispo: Discharge in a.m., paperwork completed for [facility]. Family plans on getting patient Covid vaccinated upon discharge
[2020-11-27] MEDS: Lidocaine 5% 700 MG Patch TRDERM SCH (22:53)
[2020-11-28] MEDS: oxyCODONE 5 MG Tab PO PRN ×3 (00:33→08:59)
[2020-11-28] MEDS: Acetaminophen 325 MG Tab PO PRN (06:56)
[2020-11-28 07:41] VITALS: BP 116/74; PULSE 94
[2020-11-28] MEDS: Finasteride 5 MG Tab PO SCH (08:21)
[2020-11-28] MEDS: Tamsulosin 0.4 MG Cap.ER PO SCH (08:22)
--- NOTE | 2020-11-28 16:45 | PCM.DCSUM1 ---
Discharge Summary - Hospital Course HPI Initial Comments: Patient is an 80-year-old male who presents to the emergency room with complaints of left chest wall pain and bilateral shoulder pain post fall. Patient does live home alone. He states he became unbalanced and fell, hitting his left shoulder on the wall, became even more unsteady and then fell down to the ground. He denies hitting his head or having any loss of consciousness. He states he laid on the ground for 15 to 20 minutes as he was so short of breath from hitting his left chest wall that he could not get up. Once he was able to get up he was able to call his daughter who brought him here to the emergency room. Patient denies any fever, chills, headache, change in vision, syncope or near syncope. Denies any chest pain, back pain, shortness of breath or cough. Denies any abdominal pain, nausea, vomiting, diarrhea, constipation or dysuria. Has not noted any blood in urine or stool. Patient has been eating and drinking appropriately. Brief History: Patient is an 80-year-old male with past medical history of CKD, recent history of cataract surgery 3 days back in his right eye, who presents to the emergency room with complaints of left upper back pain and bilateral shoulder pain post fall. Patient states that he was unsteady on his feet and as a result he lost his balance and fell against a wall and then fell to the ground. Patient states that he could not call for help because his phone was not working. Patient not exactly sure at what time he fell and if he fell today or yesterday, seems to be slightly confused but otherwise is alert awake. Patient states that he underwent cataract surgery 3 days back and he has not had really much to eat or drink since last 2 days. Patient lives alone by himself. Patient was eventually brought to the ER by his daughter. Patient denied any chest pain shortness of breath. Patient denies any fever, chills, headache, change in vision, syncope or near syncope. Denies any abdominal pain, nausea, vomiting, diarrhea, constipation or dysuria. Has not noted any blood in urine or stool. In the ER x-ray of the chest and shoulders was performed which did not show any acute fractures. CT of the head was negative for any intracranial bleed as well. Patient continued to have pain and was not comfortable going home by himself and was admitted for further management and possible need for placement. Diagnosis: Stroke: No - Discharge Data Discharge Date: 11/28/20 Discharge Disposition: Home, W Home Health Agency Condition: Stable - Referral to Home Health Date of Face to Face Encounter: 11/28/20 Reason for Homebound Status: patient is homebound needing walker and assistance of caregiver to leave. due to acute rib pain and unsteady gait. Primary Care Physician: Jamarcus Sin MD Skilled Need: Patient is in need of residential care to help monitor pain and vital signs. Patient is in need of PT and OT to evaluate and treat gait and strenghtening along with home safety evaluation. - Patient Summary/Data Consults: Consultations 11/24/20 11:34 PT Evaluation and Treatment [CONS] Routine 11/24/20 19:18 Consult to Home Care [Consult to Home Health] [CONS] Routine 11/25/20 11:26 Consult to Case Management/Water Pipe Installer [CONS] Routine - Patient Instructions Diet: Heart Healthy Diet Activity: As Tolerated Driving: Do Not Drive Showering/Bathing: May Shower Notify Provider of: Fever, Increased Pain, Swelling and Redness, Drainage, Nausea and/or Vomiting Other/Special Instructions: Mobley catheter cares, leg bag. Mobley to be changed monthly - Discharge Plan *PRESCRIPTION DRUG MONITORING PROGRAM REVIEWED*: Not Applicable *COPY OF PRESCRIPTION DRUG MONITORING REPORT IN PATIENT PATRICIA: Not Applicable Prescriptions/Med Rec: Docusate Sodium [Colace] 100 mg PO Q12H PRN #30 cap PRN Reason: Constipation Finasteride 5 mg PO BEDTIME #30 tablet Tamsulosin [Flomax] 0.4 mg PO BIDPC #60 cap.er Lidocaine 5% [Lidoderm 5%] 700 mg TRDERM Q24H #7 patch polyethylene glycoL 3350 [MiraLAX] 17 gm PO BEDTIME PRN #1 bottle PRN Reason: Constipation oxyCODONE 5 mg PO Q6H PRN #20 tab PRN Reason: Pain Acetaminophen [Tylenol] 325 mg PO Q4H PRN #15 tablet PRN Reason: Pain (Mild 1-3) Home Medications: Home Meds Acetaminophen [Tylenol] 325 mg PO Q4H PRN #15 tablet 11/27/20 [Rx] Docusate Sodium [Colace] 100 mg PO Q12H PRN #30 cap 11/27/20 [Rx] Finasteride 5 mg PO BEDTIME #30 tablet 11/27/20 [Rx] Lidocaine 5% [Lidoderm 5%] 700 mg TRDERM Q24H #7 patch 11/27/20 [Rx] Tamsulosin [Flomax] 0.4 mg PO BIDPC #60 cap.er 11/27/20 [Rx] oxyCODONE 5 mg PO Q6H PRN #20 tab 11/27/20 [Rx] polyethylene glycoL 3350 [MiraLAX] 17 gm PO BEDTIME PRN #1 bottle 11/27/20 [Rx] Oxygen Therapy Mode: Room Air Patient Handouts: Finasteride (Proscar) tablets, Oxycodone tablets or capsules, Acetaminophen tablets or caplets, Chronic Kidney Disease, Adult, [id number], Tamsulosin capsules, Lidocaine dermal patch, Docusate capsules, Polyethylene Glycol powder Referrals: Chandler Wade MD [Ordering Only Provider] - Jamarcus Sin MD [Primary Care Provider] - 12/05/20 9:00 am - Discharge Summary/Plan Comment DC Time >30 min.: Yes Discharge Summary/Plan Comment: Patient was discharged to [facility], with appropriate orders for post discharge care to help with Mobley catheter care as well as implementing strengthening with use of physical therapy. Patient is to closely follow-up with urology post discharge as well as his PCP. In the interim please return to the hospital in the event you develop significant pain, shortness of breath, difficulty urinating, inability to ambulate or weakness and confusion. - Patient Data Vitals - Most Recent: Last Vital Signs Temp 97.6 F 11/28/20 07:40 Pulse 94 11/28/20 07:40 Resp 15 11/28/20 07:40 BP 116/74 11/28/20 07:40 Pulse Ox 95 11/28/20 07:40 Weight - Most Recent: 152 lb 1.6 oz I&O - Last 24 hours: Intake & Output 11/28/20 11/28/20 11/28/20 06:59 14:59 22:59 Intake Total 420 Output Total 40 Balance 3F @ Med Orders - Current: Current Medications Discontinued Medications Acetaminophen (Acetaminophen 325 Mg Tab) 650 mg PO Q4H PRN PRN Reason: Pain (Mild 1-3)/fever Last Admin: 11/24/20 12:33 Dose: 650 mg Documented by: Acetaminophen (Acetaminophen 325 Mg Tab) 325 mg PO Q4H PRN PRN Reason: Pain (mild 1-3) Last Admin: 11/28/20 06:56 Dose: 325 mg Documented by: Albuterol/Ipratropium (Albuterol/Ipratropium 3.0-0.5 Mg/3 Ml Neb Soln) 3 ml NEB Q4HRRT PRN PRN Reason: Shortness Of Breath/wheezing Amlodipine Besylate (Amlodipine 5 Mg Tab) 5 mg PO DAILY [facility] Last Admin: 11/24/20 08:28 Dose: 5 mg Documented by: Amlodipine Besylate (Amlodipine 5 Mg Tab) 10 mg PO DAILY [facility] Last Admin: 11/25/20 08:32 Dose: 10 mg Documented by: Bisacodyl (Bisacodyl 10 Mg Supp) 10 mg RECTAL ONETIME ONE Stop: 11/27/20 09:20 Last Admin: 11/27/20 10:19 Dose: 10 mg Documented by: Docusate Sodium (Docusate Sodium 100 Mg Cap) 100 mg PO Q12H PRN PRN Reason: Constipation Last Admin: 11/26/20 21:44 Dose: 100 mg Documented by: Finasteride (Finasteride 5 Mg Tab) 5 mg PO DAILY [facility] Last Admin: 11/28/20 08:21 Dose: 5 mg Documented by: Sodium Chloride (Normal Saline) 1,000 mls @ 999 mls/hr IV STAT ONE Stop: 11/23/20 20:40 Last Admin: 11/23/20 20:19 Dose: 999 mls/hr Documented by: Lactated Ringer's (Ringers, Lactated) 1,000 mls @ 125 mls/hr IV ASDIRECTED [facility] Last Admin: 11/25/20 08:34 Dose: 125 mls/hr Documented by: Ketorolac Tromethamine (Ketorolac 30 Mg/Ml Sdv) 30 mg IVPUSH ONETIME ONE Stop: 11/23/20 19:47 Last Admin: 11/23/20 20:19 Dose: 30 mg Documented by: Labetalol HCl (Labetalol 100 Mg/20 Ml Mdv) 20 mg IVPUSH Q4H PRN; Protocol PRN Reason: Hypertension Lidocaine (Lidocaine 5% 700 Mg Patch) 700 mg TRDERM Q24H [facility] Last Admin: 11/27/20 22:53 Dose: 700 mg Documented by: Ondansetron HCl (Ondansetron 4 Mg/2 Ml Sdv) 4 mg IVPUSH Q4H PRN PRN Reason: Nausea/Vomiting Last Admin: 11/24/20 18:36 Dose: 4 mg Documented by: Oxycodone HCl (Oxycodone 5 Mg Tab) 5 mg PO Q4H PRN PRN Reason: Pain Last Admin: 11/28/20 08:59 Dose: 5 mg Documented by: Oxycodone/Acetaminophen (Acetaminophen/Oxycodone 325-5 Mg Tab) 1 tab PO Q6H PRN PRN Reason: Pain (moderate 4-6) Last Admin: 11/27/20 17:04 Dose: 1 tab Documented by: Polyethylene Glycol (Polyethylene Glycol 3350 Powder 17 Gm Packet) 17 gm PO BEDTIME PRN PRN Reason: Constipation Last Admin: 11/26/20 23:52 Dose: 17 gm Documented by: Tamsulosin HCl (Tamsulosin 0.4 Mg Cap.Er) [facility] Last Admin: 11/28/20 08:22 Dose: 0.4 mg Documented by: Tramadol HCl (Tramadol 50 Mg Tab) 50 mg PO ONETIME ONE Stop: 11/23/20 17:12 Last Admin: 11/23/20 17:50 Dose: 50 mg Documented by:
--- NOTE | 2020-11-30 04:23 | PCM.EKG ---
#1 Interpretation EKG Date: 11/23/20 Time: 05:12 Rhythm: NSR Rate (Beats/Min): 67 [place]: Normal P-Wave: Present QRS: Normal ST-T: Normal QT: Normal VT/PQ Interval: 178 EKG Interpretation Comments: TWI in leads V1, V2, V3, V4, V5, V6, III, aVF; no SIMON/STD
== END 2020-11-28 10:45 | disposition home health service (06) | DRG 605 ==
LOC: MW.ED 16:48 → MW.MS 19:38 → OBSVTOIN 11-25 16:26 → MW.MS 11-25 17:51
PROVIDERS: ADMIT Student in an Organized Health Care Education/Training Program; ATTEND Student in an Organized Health Care Education/Training Program
DX: S20.212A Contusion of left front wall of thorax, initial encounter (principal); W19.XXXA Unspecified fall, initial encounter; Z87.891 Personal history of nicotine dependence; N13.8 Other obstructive and reflux uropathy; N17.9 Acute kidney failure, unspecified; W18.30XA Fall on same level, unspecified, initial encounter; Y93.9 Activity, unspecified; M25.512 Pain in left shoulder; M25.511 Pain in right shoulder; Y92.89 Other specified places as the place of occurrence of the external cause; D72.829 Elevated white blood cell count, unspecified; I12.9 Hypertensive chronic kidney disease with stage 1 through stage 4 chronic kidney disease, or unspecified chronic kidney disease; N18.9 Chronic kidney disease, unspecified; Z20.822 Contact with and (suspected) exposure to COVID-19; N13.9 Obstructive and reflux uropathy, unspecified; R26.81 Unsteadiness on feet; N40.1 Benign prostatic hyperplasia with lower urinary tract symptoms; G31.84 Mild cognitive impairment of uncertain or unknown etiology; E86.0 Dehydration; R33.8 Other retention of urine; R35.1 Nocturia; Z98.41 Cataract extraction status, right eye; Z90.49 Acquired absence of other specified parts of digestive tract
CPT/HCPCS: 36415 ×3; 51701; 51702; 70450; 71101; 72040; 72070; 73030 ×2; 76856; 80048; 80053 ×2; 80061; 81003; 83036; 83735 ×2; 84100 ×2; 84443; 84484; 85025 ×3; 93005; 96374; 97161; 97530; 99285; A9270 ×20; G0103; J1885; J2405; J7030; J7120 ×5; U0002; 93010; 96375; 97110-GP; 99283; G0378

== ENCOUNTER 2020-12-01 12:52 | Emergency (ER) | payer MEDICARE, OTHER ==
--- NOTE | 2020-12-01 13:14 | EDM.PDOC ---
ED HPI GENERAL MEDICAL PROBLEM - General Chief Complaint: Genitourinary Problem Stated Complaint: CATH HURTING Time Seen by Provider: 12/01/20 13:14 Source of Information: Reports: Patient History Limitations: Reports: No Limitations - History of Present Illness INITIAL COMMENTS - FREE TEXT/NARRATIVE: HISTORY AND PHYSICAL: History of present illness: The patient is an 80-year-old male who was recently discharged from the hospital on presents to the emergency room with complaints of his catheter not draining. The patient is in assisted living and complaints of no drainage in his catheter bag. He also complains of the catheter causing discomfort. He complains of discomfort in his back and shoulders and knees. The patient states that he has been quarantined for 14 days and as such the staff is not really been helping him. Patient denies any fever, chills, headache, change in vision, syncope or near syncope. Denies any chest pain, back pain, shortness of breath or cough. Denies any abdominal pain, nausea, vomiting, diarrhea, constipation or dysuria. Has not noted any blood in urine or stool. Patient has been eating and drinking appropriately. Review of systems: As per history of present illness and below otherwise all systems reviewed and negative. Past medical history: As per history of present illness and as reviewed below otherwise noncontr ibutory. Surgical history: As per history of present illness and as reviewed below otherwise noncontributory. Social history: See social history for further information Family history: As per history of present illness and as reviewed below otherwise noncontributory. Physical exam: General: Well developed and well nourished. Alert and orientated x 3. Nontoxic in appearance and in no acute distress. Vital signs are stable and have been reviewed by me. Nursing notes were reviewed. HEENT: Atraumatic, normocephalic, pupils equal and reactive bilaterally, negative for conjunctival pallor or scleral icterus, mucous membranes moist, TMs normal bilaterally, throat clear, neck supple, nontender, trachea midline. No drooling or trismus noted. No meningeal signs. No hot potato voice noted. Lungs: Clear to auscultation bilaterally. No wheezes, rales, or rhonchi. Chest nontender. Normal work of breathing, no accessory muscles used. Heart: S1S2, regular rate and rhythm without overt murmur, gallops, or rubs. No JVD. No peripheral edema Abdomen: Soft, nondistended, nontender. Normoactive bowel sounds. Negative for masses or costovertebral tenderness. Genitourinary/Rectal: Meatus with slight irritation. Skin: Intact, warm, dry. No lesions or rashes noted. Hematologic: No petechiae or purpra. Mucosa appropriate color and normal nail bed color and refill. Extremities: Atraumatic, moves all extremities per self without difficulty or deficits, negative for cords or calf pain. Neurovascular unremarkable. Neuro: Awake, alert, oriented. Cranial nerves II through XII unremarkable. Cereb ellum unremarkable. Motor and sensory unremarkable throughout. Exam nonfocal. Psychiatric: Mood and affect are appropriate. Normal thought process. Answering questions appropriately. Notes: *This patient was seen and evaluated during the 2019 SARS-CoV-2 novel coronavirus pandemic period. Community viral transmission is ongoing at time of this encounter and the emergency department is operating under pandemic response procedures. As stated above the patient is here for no drainage in his Garcia catheter bag. Upon examination noted a small amount of drainage in the back and in the tubing of the catheter. The patient then states that he feels like his abdomen is hard and that it is not draining enough. Apparently the Garcia catheter was placed due to an enlarged prostate and decreased urine output while in the hospital. The catheter is not anchored and this is causing irritation. I will do a work- up on the patient to ensure there is no infection. I initially ordered a bladder scan however I was informed the bladder scan is broken. We will attempt to flush the Garcia catheter. The patient is agreeable to the plan. 15:23 DR. Aguayo did a bedside bladder scan with findings of large volume of urine. We will change the garcia catheter I have talked with the patient about today's findings, in addition to providing specific details for plan of care. Reassessment at the time of disposition demonstrates that the patient is in no acute distress. The patient is stable for discharge, counseling was provided and we discussed in great detail signs and symptoms that would prompt them to return to the Emergency Department. Medication, follow up and supportive care measures were reviewed and discussed. Voices understanding and is agreeable to plan of care. Denies any further q uestions or concerns at this time. Diagnostics: CBC, CMP, UA Impression: Garcia catheter complication Plan: 1. You were evaluated today on an emergent basis. Your complaints of catheter not draining was evaluated with blood work and a bladder scan which did show you Garcia catheter was not draining adequately. We have since changed your Garcia catheter and if it needs to be flushed it could be at this point. Be sure to do adequate catheter care daily. And as long as you do not have your catheter anchored it will continue to yank and cause pain at the the meatus. Have the staff assist you as needed. If you notice a decrease in flow of your catheter please return to the emergency room and follow-up with your primary care as needed. You develop a fever return to the emergency room. 2. You can alternate Tylenol and ibuprofen as needed for pain and fever management. 3. We encourage you to follow up with your primary care provider and/or recommended specialist in the next few days for re-evaluation and further care/management. 4. If your symptoms should worsen, new symptoms develop or any of the signs and symptoms we discussed should arise please return to the emergency room or call 911 (if needed). Definitive disposition and diagnosis as appropriate pending reevaluation and review of above. - Related Data Allergies Allergy/AdvReac Type Severity Reaction Status Date / Time No Known Allergies Allergy Verified 11/23/20 21:41 Home Meds: Home Meds Acetaminophen [Tylenol] 325 mg PO Q4H PRN #15 tablet 11/27/20 [Rx] Docusate Sodium [Colace] 100 mg PO Q12H PRN #30 cap 11/27/20 [Rx] Finasteride 5 mg PO BEDTIME #30 tablet 11/27/20 [Rx] Lidocaine 5% [Lidoderm 5%] 700 mg TRDERM Q24H #7 patch 11/27/20 [Rx] Tamsulosin [Flomax] 0.4 mg PO BIDPC #60 cap.er 11/27/20 [Rx] oxyCODONE 5 mg PO Q6H PRN #20 tab 11/27/20 [Rx] polyethylene glycoL 3350 [MiraLAX] 17 gm PO BEDTIME PRN #1 bottle 11/27/20 [Rx] Past Medical History - Past Health History Medical/Surgical History: Denies Medical/Surgical History HEENT History: Reports: Cataract Cardiovascular History: Reports: None Respiratory History: Reports: None Gastrointestinal History: Reports: None Genitourinary History: Reports: None Musculoskeletal History: Reports: None Neurological History: Reports: None Psychiatric History: Reports: None Endocrine/Metabolic History: Reports: None Hematologic History: Reports: None Immunologic History: Reports: None Oncologic (Cancer) History: Reports: None Dermatologic History: Reports: None - Infectious Disease History Infectious Disease History: Reports: None - Past Surgical History HEENT Surgical History: Reports: Cataract Surgery Other HEENT Surgeries/Procedures: Recent cataract surgery "3 to 4 days" ago Cardiovascular Surgical History: Reports: None Respiratory Surgical History: Reports: None GI Surgical History: Reports: Appendectomy Other GI Surgeries/Procedures: 50+ years ago. Male Surgical History: Reports: None Endocrine Surgical History: Reports: None Neurological Surgical History: Reports: None Musculoskeletal Surgical History: Reports: Other (See Below) Other Musculoskeletal Surgeries/Procedures:: knee surgery - Dr. Art about 10 years ago Oncologic Surgical History: Reports: None Dermatological Surgical History: Reports: None Social & Family History - Family History Family Medical History: No Pertinent Family History - Caffeine Use Caffeine Use: Reports: Soda ED ROS GENERAL - Review of Systems Review Of Systems: Comprehensive ROS is negative, except as noted in HPI. ED EXAM, RENAL/ - Physical Exam Exam: See Below (See dictation) Course - Vital Signs Last Recorded V/S: Last Vital Signs Temp 96.9 F 12/01/20 13:32 Pulse 81 12/01/20 16:01 Resp 16 12/01/20 16:01 BP 158/99 H 12/01/20 16:01 Pulse Ox 95 12/01/20 16:01 - Orders/Labs/Meds Orders: Active Orders 24 hr Category Date Time Status Garcia Catheter Insertion [Insert Urinary Catheter] [OM. Care 12/01/20 15:30 Ordered PC] Q24H Labs: Laboratory Tests 12/01/20 12/01/20 12/01/20 Range/Units 13:37 13:37 13:49 WBC 8.03 (4.0-11.0) K/uL RBC 3.99 L (4.50-5.90) M/uL Hgb 12.7 L (13.0-17.0) g/dL Hct 39.0 (38.0-50.0) % MCV 97.7 (80.0-98.0) fL MCH 31.8 (27.0-32.0) pg MCHC 32.6 (31.0-37.0) g/dL RDW Std Deviation 50.1 (28.0-62.0) fl RDW Coeff of Ken 14 (11.0-15.0) % Plt Count 251 (150-400) K/uL MPV 9.20 (7.40-12.00) fL Neut % (Auto) 75.7 (48.0-80.0) % Lymph % (Auto) 12.1 L (16.0-40.0) % [place] % (Auto) 9.6 (0.0-15.0) % Eos % (Auto) 2.2 (0.0-7.0) % Baso % (Auto) 0.4 (0.0-1.5) % Neut # (Auto) 6.1 H (1.4-5.7) K/uL Lymph # (Auto) 1.0 (0.6-2.4) K/uL [place] # (Auto) 0.8 (0.0-0.8) K/uL Eos # (Auto) 0.2 (0.0-0.7) K/uL Baso # (Auto) 0.0 (0.0-0.1) K/uL Nucleated RBC % 0.0 /100WBC Nucleated RBCs # 0 K/uL Sodium 140 (136-148) mmol/L Potassium 4.8 (3.5-5.1) mmol/L Chloride 105 (98-107) mmol/L Carbon Dioxide 27.2 (21.0-32.0) mmol/L BUN 34 H (7.0-18.0) mg/dL Creatinine 1.6 H (0.8-1.3) mg/dL Est Cr Clr Drug Dosing 33.23 mL/min Estimated GFR (MDRD) 41.8 ml/min Glucose 127 H (74-106) mg/dL Calcium 8.2 L (8.5-10.1) mg/dL Total Bilirubin 0.2 (0.2-1.0) mg/dL AST 23 (15-37) IU/L ALT 23 (14-63) IU/L Alkaline Phosphatase 56 (46-116) U/L Total Protein 6.7 (6.4-8.2) g/dL Albumin 3.1 L (3.4-5.0) g/dL Globulin 3.6 (2.6-4.0) g/dL Albumin/Globulin Ratio 0.9 (0.9-1.6) Urine Color BROWN Urine Appearance CLOUDY Urine pH 5.5 (5.0-8.0) Ur Specific [place] >= 1.030 (1.001-1.035) Urine Protein >=300 H (NEGATIVE) mg/dL Urine Glucose (UA) NEGATIVE (NEGATIVE) mg/dL Urine Ketones TRACE H (NEGATIVE) mg/dL Urine Occult Blood LARGE H (NEGATIVE) Urine Nitrite POSITIVE H (NEGATIVE) Urine Bilirubin SMALL H (NEGATIVE) Urine Ictotest Urine Urobilinogen 0.2 (<2.0) EU/dL Ur Leukocyte Esterase NEGATIVE (NEGATIVE) Urine RBC TOO NUMEROUS TO CT (0-2/HPF) Urine WBC 0-2 (0-5/HPF) Ur Epithelial Cells FEW (NONE-FEW) Amorphous Sediment LIGHT (NEGATIVE) Urine Bacteria FEW (NEGATIVE) Urinalysis Comment Meds: Medications Discontinued Medications Generic Name Dose Route Start Last Admin Trade Name Freq PRN Reason Stop Dose Admin Acetaminophen 650 mg 12/01/20 15:04 12/01/20 15:17 Acetaminophen 325 Mg Tab PO 12/01/20 15:05 650 mg NOW ONE Administration Departure - Departure Time of Disposition: 15:44 Disposition: Home, Self-Care 01 Clinical Impression: Garcia catheter problem Qualifiers: Encounter type: initial encounter Qualified Code(s): T83.9XXA - Unspecified complication of genitourinary prosthetic device, implant and graft, initial encounter - Discharge Information *PRESCRIPTION DRUG MONITORING PROGRAM REVIEWED*: Not Applicable *COPY OF PRESCRIPTION DRUG MONITORING REPORT IN PATIENT PATRICIA: Not Applicable Instructions: Indwelling Urinary Catheter Care, Adult Referrals: Jamarcus Sin MD [Primary Care Provider] - Forms: ED Department Discharge Additional Instructions: The following information is given to patients seen in the emergency department who are being discharged to home. This information is to outline your options for follow-up care. We provide all patients seen in our emergency department with a follow-up referral. The need for follow-up, as well as the timing and circumstances, are variable depending upon the specifics of your emergency department visit. If you don't have a primary care physician on staff, we will provide you with a referral. We always advise you to contact your personal physician following an emergency department visit to inform them of the circumstance of the visit and for follow-up with them and/or the need for any referrals to a consulting specialist. The emergency department will also refer you to a specialist when appropriate. This referral assures that you have the opportunity for follow-up care with a specialist. All of these measure are taken in an effort to provide you with optimal care, which includes your follow-up. Under all circumstances we always encourage you to contact your private physician who remains a resource for coordinating your care. When calling for follow-up care, please make the office aware that this follow-up is from your recent emergency room visit. If for any reason you are refused follow-up, please contact the [facility] Emergency Department at and asked to speak to the emergency department charge nurse. [facility] [address] [place] [address] [place] [address] Plan: 1. You were evaluated today on an emergent basis. Your complaints of catheter not draining was evaluated with blood work and a bladder scan which did show you Garcia catheter was not draining adequately. We have since changed your Garcia catheter and if it needs to be flushed it could be at this point. Be sure to do adequate catheter care daily. And as long as you do not have your catheter anchored it will continue to yank and cause pain at the the meatus. Have the staff assist you as needed. If you notice a decrease in flow of your catheter please return to the emergency room and follow-up with your primary care as needed. You develop a fever return to the emergency room. 2. You can alternate Tylenol and ibuprofen as needed for pain and fever management. 3. We encourage you to follow up with your primary care provider and/or recommended specialist in the next few days for re-evaluation and further care/management. 4. If your symptoms should worsen, new symptoms develop or any of the signs and symptoms we discussed should arise please return to the emergency room or call 911 (if needed). Sepsis Event Note (ED) - Focused Exam Vital Signs: Vital Signs Temp Pulse Resp BP Pulse Ox 12/01/20 16:01 81 16 158/99 H 95 12/01/20 13:32 96.9 F 88 16 135/76 94 L - My Orders Last 24 Hours: My Active Orders 12/01/20 15:30 Garcia Catheter Insertion [Insert Urinary Catheter] [OM.PC] Q24H - Assessment/Plan Last 24 Hours: My Active Orders 12/01/20 15:30 Garcia Catheter Insertion [Insert Urinary Catheter] [OM.PC] Q24H
[2020-12-01 14:00] LABS: CARBON DIOXIDE,CO2 27.2 mmol/L (21.0-32.0); POTASSIUM,K 4.8 mmol/L (3.5-5.1)
[2020-12-01] MEDS ORDERED: Acetaminophen 325 MG Tab PO ONE (15:04)
[2020-12-01 16:03] VITALS: BP 158/99; PULSE 81
== END 2020-12-01 16:03 | disposition home or self-care (01) ==
LOC: MW.ED 13:01
DX: T83.091A Other mechanical complication of indwelling urethral catheter, initial encounter (principal)
CPT/HCPCS: 36415; 51702; 80053; 81001; 85025; 99283; A9270

== ENCOUNTER 2021-02-09 11:47 | Inpatient (IN) | payer MEDICARE, OTHER ==
--- NOTE | 2021-02-09 13:59 | EDM.PDOC ---
ED HPI GENERAL MEDICAL PROBLEM - General Chief Complaint: General Stated Complaint: LIGHT HEADED FATIGUED Time Seen by Provider: 02/09/21 13:34 Source of Information: Reports: Patient History Limitations: Reports: No Limitations - History of Present Illness INITIAL COMMENTS - FREE TEXT/NARRATIVE: HISTORY AND PHYSICAL: History of present illness: The patient is an 80-year-old male that presents to the emergency department with complaints of feeling of weakness, confusion, dizziness and an episode of nausea today. Patient states that he has been feeling fatigued for the last 2 days. The patient started on Bactrim on Wednesday for a urinary tract infection. He was seen by his urologist and had a urine test this . The patient had fallen in November of this year and was found to have increased creatinine due to retention of urine due to a BPH. The patient required a Mobley catheter. The Mobley catheter came out in December and he had been doing fairly well. The patient does take energy drinks on a daily basis. He has been eating normally and drinking normally. Patient denies any fever, chills, headache, change in vision, syncope or near syncope. Denies any chest pain, back pain, shortness of breath or cough. Denies any abdominal pain, vomiting, diarrhea, constipation or dysuria. Has not noted any blood in urine or stool. Patient has been eating and drinking appropriately. The patient had [employer] Covid vaccine. Patient is hemodynamically stable in the emergency department with a blood pressure of 96/57, pulse of 81, SPO2 of 95%. He is afebrile. Review of systems: As per history of present illness and below otherwise all systems reviewed and negative. Past medical history: As per history of present illness and as reviewed below otherwise noncontributory. Surgical history: As per history of present illness and as reviewed below otherwise noncontributory. Social history: See social history for further information Family history: As per history of present illness and as reviewed below otherwise noncontributory. Physical exam: General: Well developed and well nourished. Alert and orientated x 2. Nontoxic in appearance and in no acute distress. Vital signs are stable and have been reviewed by me. Nursing notes were reviewed. HEENT: Atraumatic, normocephalic, pupils equal and reactive bilaterally, negative for conjunctival pallor or scleral icterus, mucous membranes moist, TMs normal bilaterally, throat clear, neck supple, nontender, trachea midline. No drooling or trismus noted. No meningeal signs. No hot potato voice noted. Lungs: Clear to auscultation bilaterally. No wheezes, rales, or rhonchi. Chest nontender. Normal work of breathing, no accessory muscles used. Heart: S1S2, regular rate and rhythm without overt murmur, gallops, or rubs. No JVD. No peripheral edema Abdomen: Soft, nondistended, nontender. Normoactive bowel sounds. Negative for masses or costovertebral tenderness. Skin: Intact, warm, dry. Multiple bruises to bilateral arms. Hematologic: No petechiae or purpra. Mucosa appropriate color and normal nail bed color and refill. Extremities: Atraumatic, moves all extremities per self without difficulty or deficits, negative for cords or calf pain. Neurovascular unremarkable. Neuro: Awake, alert, oriented. Cranial nerves II through XII unremarkable. Cerebellum unremarkable. Motor and sensory unremarkable throughout. Exam nonfocal. Psychiatric: Mood and affect are appropriate. Forgetful and asking questions repeating. Answering questions appropriately. Notes: *This patient was seen and evaluated during the 2019 SARS-CoV-2 novel coronavirus pandemic period. Community viral transmission is ongoing at time of this encounter and the emergency department is operating under pandemic response procedures. As stated above the patient is an 80-year-old male who presents with complaints of dizziness, fatigue, nausea, and some word confusion this afternoon when trying to get up. The patient states this is worse with exertion. I have ordered blood work, EKG, head CT, and chest x-ray. The patient is agreeable with this plan. The patient's EKG demonstrated a left bundle branch block, however, 11/23/20. The patient CBC is unremarkable. The patient's BMP is remarkable for a potassium of 5.6, BUN 38, creatinine 2.3, magnesium 2.7. Upon talking to the patient he has been taking a supplemental potassium and magnesium at the advice of a friend. I advised the patient to stop taking the supplements unless directed by a physician. The patient's troponin was normal. I spoke w cathy Hamilton regarding admission due to acute kidney injury. Dr. Hamilton requested an abdominal/pelvis CT due to patient's history. I have ordered the abdominal/pelvis CT and will call Dr. Hamilton with results. The patient is agreeable with this plan. The patient's abd/pelvis CT Impression: Bilateral renal cysts. Parapelvic cyst on the left. No hydronephrosis identified. No hydroureter. Renal cortical thinning is identified on the left. Nonobstructive left renal calculus is identified. The patient's bladder scan read 475 mL and the patient had no desire to urinate. I have ordered a Mobley cath insertion. The patient's blood pressure is 85 systolic, however, the patient is asymptomatic audiogram. Patient's systolic blood pressure was 97 upon arrival. I have ordered a 500 mill bolus. Recheck the patient's blood pressure manual and he is in 100-1 10 systolic over 60. Continue to give the fluid bolus and have the Mobley cath inserted. 17:33 The patient's blood pressure is 130/71. The patient is confused. After the caregiver left the patient is appears to be more confused than previously thought. 18:11 the patient's vital signs are stable and his Mobley catheter is draining. The patient is sitting up in bed. The patient will be admitted to inpatient with telemetry. Please note that all CT scans at this facility use dose modulation, iterative reconstruction, and/or weight-based dosing when appropriate to reduce radiation dose to as low as reasonably achievable. Diagnostic: BC, CMP, EKG, chest x-ray, magnesium, troponin, abdominal pelvis CT Therapeutics: Fluids Impression: Acute kidney injury, generalized hyperkalemia Definitive disposition and diagnosis as appropriate pending reevaluation and review of above. - Related Data Allergies Allergy/AdvReac Type Severity Reaction Status Date / Time No Known Allergies Allergy Verified 02/09/21 21:12 Home Meds: Home Meds Tamsulosin [Flomax] 0.4 mg PO BIDPC #60 cap.er 11/27/20 [Rx] Finasteride [Proscar] 5 mg PO DAILY 02/09/21 [History] Sulfamethoxazole/Trimethoprim [Sulfamethoxazole-Tmp Ds Tablet] 1 each PO BID 02/09/21 [History] Past Medical History - Past Health History Medical/Surgical History: Denies Medical/Surgical History HEENT History: Reports: Cataract Cardiovascular History: Reports: None Respiratory History: Reports: None Gastrointestinal History: Reports: None Genitourinary History: Reports: BPH, Retention, Urinary Musculoskeletal History: Reports: None Neurological History: Reports: None Psychiatric History: Reports: None Endocrine/Metabolic History: Reports: None Hematologic History: Reports: None Immunologic History: Reports: None Oncologic (Cancer) History: Reports: None Dermatologic History: Reports: None - Infectious Disease History Infectious Disease History: Reports: Chicken Pox, Measles, Rubella - Past Surgical History HEENT Surgical History: Reports: Cataract Surgery Other HEENT Surgeries/Procedures: Recent cataract surgery "3 to 4 days" ago Cardiovascular Surgical History: Reports: None Respiratory Surgical History: Reports: None GI Surgical History: Reports: Appendectomy Other GI Surgeries/Procedures: 50+ years ago. Male Surgical History: Reports: None Endocrine Surgical History: Reports: None Neurological Surgical History: Reports: None Musculoskeletal Surgical History: Reports: Other (See Below) Other Musculoskeletal Surgeries/Procedures:: knee surgery - Dr. Art about 10 years ago Oncologic Surgical History: Reports: None Dermatological Surgical History: Reports: None Social & Family History - Family History Family Medical History: No Pertinent Family History - Caffeine Use Caffeine Use: Reports: None ED ROS GENERAL - Review of Systems Review Of Systems: Comprehensive ROS is negative, except as noted in HPI. ED EXAM, GENERAL - Physical Exam Exam: See Below (See dictation) Course - Vital Signs Last Recorded V/S: Last Vital Signs Temp 97.4 F 02/09/21 20:07 Pulse 86 02/09/21 20:07 Resp 16 02/09/21 20:07 BP 156/78 H 02/09/21 20:07 Pulse Ox 94 L 02/09/21 20:07 - Orders/Labs/Meds Orders: Active Orders 24 hr Category Date Time Status Bladder Scan [RC] ASDIRECTED Care 02/09/21 14:56 Active Mobley Catheter Insertion [Insert Urinary Catheter] [OM. Care 02/09/21 17:00 Ordered PC] Q24H Urinary Catheter Assessment [RC] ASDIRECTED Care 02/09/21 16:56 Active Medication Orders Acetaminophen (Acetaminophen 325 Mg Tab) 650 mg PO Q4H PRN PRN Reason: Pain (Mild 1-3)/fever Last Admin: 02/09/21 20:18 Dose: 650 mg Documented by: ALYSON Albuterol/Ipratropium (Albuterol/Ipratropium 3.0-0.5 Mg/3 Ml Neb Soln) 3 ml NEB Q4HRRT PRN PRN Reason: Shortness Of Breath/wheezing Heparin Sodium (Porcine) (Heparin Sodium 5,000 Units/Ml Vial) 5,000 units SUBCUT Q8H [facility] Last Admin: 02/09/21 20:18 Dose: 5,000 units Documented by: ALYSON Lactated Ringer's (Ringers, Lactated) 1,000 mls @ 125 mls/hr IV ASDIRECTED [facility] Last Admin: 02/09/21 20:10 Dose: 125 mls/hr Documented by: ALYSON Ondansetron HCl (Ondansetron 4 Mg/2 Ml Sdv) 4 mg IVPUSH Q4H PRN PRN Reason: Nausea/Vomiting Labs: Laboratory Tests 02/09/21 02/09/21 02/09/21 Range/Units 13:58 13:58 15:56 WBC 8.49 (4.0-11.0) K/uL RBC 4.21 L (4.50-5.90) M/uL Hgb 13.4 (13.0-17.0) g/dL Hct 40.4 (38.0-50.0) % MCV 96.0 (80.0-98.0) fL MCH 31.8 (27.0-32.0) pg MCHC 33.2 (31.0-37.0) g/dL RDW Std Deviation 49.8 (28.0-62.0) fl RDW Coeff of Ken 14 (11.0-15.0) % Plt Count 203 (150-400) K/uL MPV 8.90 (7.40-12.00) fL Neut % (Auto) 76.9 (48.0-80.0) % Lymph % (Auto) 14.4 L (16.0-40.0) % Buchanan % (Auto) 7.8 (0.0-15.0) % Eos % (Auto) 0.8 (0.0-7.0) % Baso % (Auto) 0.1 (0.0-1.5) % Neut # (Auto) 6.5 H (1.4-5.7) K/uL Lymph # (Auto) 1.2 (0.6-2.4) K/uL [place]anan # (Auto) 0.7 (0.0-0.8) K/uL Eos # (Auto) 0.1 (0.0-0.7) K/uL Baso # (Auto) 0.0 (0.0-0.1) K/uL Nucleated RBC % 0.0 /100WBC Nucleated RBCs # 0 K/uL Sodium 136 (136-148) mmol/L Potassium 5.6 H (3.5-5.1) mmol/L Chloride 103 (98-107) mmol/L Carbon Dioxide 25.2 (21.0-32.0) mmol/L BUN 38 H (7.0-18.0) mg/dL Creatinine 2.3 H (0.8-1.3) mg/dL Est Cr Clr Drug Dosing TNP Estimated GFR (MDRD) 27.5 ml/min Glucose 88 (74-106) mg/dL Calcium 8.5 (8.5-10.1) mg/dL Magnesium 2.7 H (1.8-2.4) mg/dL Total Bilirubin 0.4 (0.2-1.0) mg/dL AST 15 (15-37) IU/L ALT 23 (14-63) IU/L Alkaline Phosphatase 76 (46-116) U/L Troponin I < 0.050 (0.000-0.056) ng/mL Total Protein 6.8 (6.4-8.2) g/dL Albumin 3.6 (3.4-5.0) g/dL Globulin 3.2 (2.6-4.0) g/dL Albumin/Globulin Ratio 1.1 (0.9-1.6) SARS-CoV-2 RNA (CITLALI) NEGATIVE (NEGATIVE) Meds: Medications Generic Name Dose Route Start Last Admin Trade Name Freq PRN Reason Stop Dose Admin Acetaminophen 650 mg 02/09/21 18:16 02/09/21 20:18 Acetaminophen 325 Mg Tab PO 650 mg Q4H PRN Administration Pain (Mild 1-3)/fever Albuterol/Ipratropium 3 ml 02/09/21 18:16 Albuterol/Ipratropium 3.0-0.5 Mg/3 Ml Neb Soln NEB Q4HRRT PRN Shortness Of Breath/wheezing Heparin Sodium (Porcine) 5,000 units 02/09/21 18:30 02/09/21 20:18 Heparin Sodium 5,000 Units/Ml Vial SUBCUT 5,000 units Q8H EDU Administration Lactated Ringer's 1,000 mls @ 125 mls/hr 02/09/21 18:30 02/09/21 20:10 Ringers, Lactated IV 125 mls/hr ASDIRECTED EDU Administration Ondansetron HCl 4 mg 02/09/21 18:16 Ondansetron 4 Mg/2 Ml Sdv IVPUSH Q4H PRN Nausea/Vomiting Discontinued Medications Generic Name Dose Route Start Last Admin Trade Name Freq PRN Reason Stop Dose Admin Sodium Chloride 500 mls @ 999 mls/hr 02/09/21 17:02 02/09/21 17:45 Normal Saline IV 02/09/21 17:32 999 mls/hr ONETIME ONE Administration Sodium Chloride 500 ml 02/09/21 16:54 02/09/21 17:20 Sodium Chloride 0.9% 10 Ml Sdv IV 02/09/21 16:55 Not Given NOW STA Departure - Departure Time of Disposition: 18:11 Disposition: Admitted As Inpatient 66 Condition: Good Clinical Impression: Hyperkalemia, Acute kidney injury - Discharge Information *PRESCRIPTION DRUG MONITORING PROGRAM REVIEWED*: Not Applicable *COPY OF PRESCRIPTION DRUG MONITORING REPORT IN PATIENT PATRICIA: Not Applicable Sepsis Event Note (ED) - Evaluation Sepsis Screening Result: No Definite Risk - Focused Exam Vital Signs: Vital Signs Temp Pulse Resp BP Pulse Ox 02/09/21 16:58 90 18 85/51 L 97 02/09/21 13:34 96.5 F L 80 18 95/52 L 96 - My Orders Last 24 Hours: My Active Orders 02/09/21 14:56 Bladder Scan [RC] ASDIRECTED 02/09/21 16:56 Urinary Catheter Assessment [RC] ASDIRECTED 02/09/21 17:00 Mobley Catheter Insertion [Insert Urinary Catheter] [OM.PC] Q24H - Assessment/Plan Last 24 Hours: My Active Orders 02/09/21 14:56 Bladder Scan [RC] ASDIRECTED 02/09/21 16:56 Urinary Catheter Assessment [RC] ASDIRECTED 02/09/21 17:00 Mobley Catheter Insertion [Insert Urinary Catheter] [OM.PC] Q24H
[2021-02-09 14:33] LABS: BLOOD UREA NITROGEN,BUN 38 mg/dL (7.0-18.0); CARBON DIOXIDE,CO2 25.2 mmol/L (21.0-32.0); CHLORIDE,CL 103 mmol/L (98-107); GLUCOSE RANDOM 88 mg/dL (74-106); POTASSIUM,K 5.6 mmol/L (3.5-5.1); SODIUM,NA 136 mmol/L (136-148)
--- NOTE | 2021-02-09 14:51 | CT ---
INDICATION: Weakness, confusion with words. TECHNIQUE: CT of the head without contrast. Coronal and sagittal reformats. Bone and soft tissue algorithms. COMPARISON: 11/23/2020 FINDINGS: No acute intracranial hemorrhage or extra-axial collection. No evidence of acute cortical infarction. No mass effect or midline shift. Moderate generalized cerebral/cerebellar parenchymal volume loss. Moderate regions of decreased attenuation within the periventricular and subcortical white matter of both cerebral hemispheres most likely reflects chronic microvascular ischemic disease and age related change in this patient. Vascular calcifications within the carotid siphons. Orbital contents are normal. No calvarial fractures. No lytic or sclerotic osseous lesions within the calvarium or skull base. Scalp and other imaged soft tissue structures are normal. Mastoid air cells are clear. Mild mucosal thickening in the left maxillary sinus. IMPRESSION: 1. No acute intracranial abnormality. 2. Similar moderate age-related parenchymal volume loss and chronic small vessel white matter ischemic changes. Please note that all CT scans at this facility use dose modulation, iterative reconstruction, and/or weight-based dosing when appropriate to reduce radiation dose to as low as reasonably achievable. Dictated by Estuardo Gleason MD @ 02/09/2021 2:49:[address] Estuardo Gleason @ Feb 09 2021 2:49PM
--- NOTE | 2021-02-09 15:14 | CR ---
INDICATION: Place TECHNIQUE: Two view chest. FINDINGS: The lungs are clear. The heart, mediastinum and pulmonary vessels are of normal size. There is no evidence of pleural disease. Subacute or old rib fractures. Right hemidiaphragm elevated. IMPRESSION: No acute pulmonary process. Dictated by Whitney Mays MD @ 02/09/2021 3:12:[address] hWitney Mays @ Feb 09 2021 3:12PM
--- NOTE | 2021-02-09 15:37 | PCM.EKG ---
#1 Interpretation EKG Date: 02/09/21 Time: 14:01 Rhythm: NSR Rate (Beats/Min): 74 [place]: Normal P-Wave: Present QRS: LBBB (leads V1-v4) ST-T: Normal QT: Normal Comparison: No Change (11/23/20) EKG Interpretation Comments: Sinus rhythm with LBBB unchanged.
--- NOTE | 2021-02-09 16:06 | CT ---
Indication: Elevated creatinine. Technique: Multiple contiguous axial images were obtained from the lung bases through the symphysis pubis without intravenous contrast enhancement. Please note that all CT scans at this facility use dose modulation, iterative reconstruction, and/or weight-based dosing when appropriate to reduce radiation dose to as low as reasonably achievable. Comparison: February 08, 2018. Findings: The lung bases are clear. The heart is normal in size. Coronary artery calcifications are identified. No pericardial effusion is identified. The unenhanced liver, gallbladder, pancreas, adrenals, and kidneys are normal. No intrahepatic biliary ductal dilatation is identified. No hydronephrosis is identified. A large parapelvic cyst is identified on the left. Multiple renal cysts are identified. A nonobstructing left renal calculus is identified. No hydroureter is identified. In the pelvis, the prostate gland contains numerous calcifications. The urinary bladder is normal. A moderate amount of stool is identified within the colon. No free air or free fluid is identified within the abdomen or pelvis. The aorta is normal in caliber. No lytic or blastic lesions of the spine are identified. Impression: Bilateral renal cysts. Parapelvic cyst on the left. No hydronephrosis identified. No hydroureter. Renal cortical thinning is identified on the left. Nonobstructive left renal calculus is identified. Please note that all CT scans at this facility use dose modulation, iterative reconstruction, and/or weight-based dosing when appropriate to reduce radiation dose to as low as reasonably achievable. Dictated by Rachna Costa MD @ 02/09/2021 4:06:[address] Rachna Costa @ Feb 09 2021 4:06PM
[2021-02-09] MEDS ORDERED: Sodium Chloride 0.9% 10 ML SDV IV STA (16:54)
[2021-02-09] MEDS ORDERED: Sodium Chloride 0.9% 500 ML IV ONE ×2 (17:00→17:02)
[2021-02-09] MEDS ORDERED: Ondansetron 4 MG/2 ML SDV IVPUSH PRN (18:16)
[2021-02-09] MEDS ORDERED: Acetaminophen 325 MG Tab PO PRN (18:16)
[2021-02-09] MEDS ORDERED: Albuterol/Ipratropium 3.0-0.5 MG/3 ML Neb Soln NEB PRN (18:16)
[2021-02-09] MEDS: Lactated Ringers 1,000 ML IV SCH (20:10)
[2021-02-09] MEDS: Heparin Sodium 5,000 Units/ML Vial SUBCUT SCH (20:18)
--- NOTE | 2021-02-09 23:51 | PCM.HP.2 ---
H&P History of Present Illness - General Date of Service: 02/09/21 Admit Problem/Dx: Admission Diagnosis/Problem Admission Diagnosis/Problem Acute kidney injury - History of Present Illness Initial Comments - Free Text/Narative: The patient is an 80-year-old male with past medical history of CKD, history of cataract surgery, history of BPH requiring Mobley insertion in the past, that presents to the emergency department with complaints of feeling of weakness, confusion, dizziness. Patient states that he was also feeling very nauseous today. The patient started on Bactrim on Wednesday for a urinary tract infection. He was seen by his urologist. Patient was admitted to the hospital in November 2020 after the patient had fallen in November of this year and was found to have increased creatinine due to retention of urine due to a BPH. The patient required a Mobley catheter. The Mobley catheter came out in December and he had been doing fairly well. The patient does take energy drinks on a daily basis. He h as been eating normally and drinking normally. Patient denies any fever, chills, headache, change in vision, syncope or near syncope. Denies any chest pain, back pain, shortness of breath or cough. Denies any abdominal pain, vomiting, diarrhea, constipation or dysuria. Has not noted any blood in urine or stool. Patient states that he continues to live at [facility] assisted living but was considering of moving out soon. In the ER patient's EKG demonstrated a left bundle branch block, which is unchanged from the past, the patient CBC is unremarkable. The patient's BMP is remarkable for a potassium of 5.6, BUN 38, creatinine 2.3, magnesium 2.7. Per patient he has been taking supplemental potassium and magnesium at the advice of a friend. The patient's troponin was normal. The patient's abd/pelvis CT done in the ER, impression: Bilateral renal cysts. Parapelvic cyst on the left. No hydronephrosis identified. No hydroureter. Renal cortical thinning is identified on the left. Nonobstructive left renal calculus is identified. The patient's bladder scan read 475 mL and the patient had no desire to urinate. I have ordered a Mobley cath insertion. Patient had some soft blood pressure with systolics in the 80s in the ER so some IV fluids were given which did help with his BP, patient was admitted to the hospital for management of MANSOOR or CKD and hyperkalemia as well as generalized weakness and deconditioning. - Related Data Allergies/Adverse Reactions: Allergies Allergy/AdvReac Type Severity Reaction Status Date / Time No Known Allergies Allergy Verified 02/09/21 21:12 Home Medications: Home Meds Tamsulosin [Flomax] 0.4 mg PO BIDPC #60 cap.er 11/27/20 [Rx] Finasteride [Proscar] 5 mg PO DAILY 02/09/21 [History] Sulfamethoxazole/Trimethoprim [Sulfamethoxazole-Tmp Ds Tablet] 1 each PO BID 02/09/21 [History] Past Medical History - Past Health History Medical/Surgical History: Denies Medical/Surgical History HEENT History: Reports: Cataract Cardiovascular History: Reports: None Respiratory History: Reports: None Gastrointestinal History: Reports: None Genitourinary History: Reports: BPH, Renal Calculus, Retention, Urinary Musculoskeletal History: Reports: None Neurological History: Reports: None Psychiatric History: Reports: None Endocrine/Metabolic History: Reports: None Hematologic History: Reports: None Immunologic History: Reports: None Oncologic (Cancer) History: Reports: None Dermatologic History: Reports: None - Infectious Disease History Infectious Disease History: Reports: Chicken Pox, Measles, Rubella - Past Surgical History HEENT Surgical History: Reports: Cataract Surgery Other HEENT Surgeries/Procedures: Recent cataract surgery "3 to 4 days" ago Cardiovascular Surgical History: Reports: None Respiratory Surgical History: Reports: None GI Surgical History: Reports: Appendectomy Other GI Surgeries/Procedures: 50+ years ago. Male Surgical History: Reports: None Endocrine Surgical History: Reports: None Neurological Surgical History: Reports: None Musculoskeletal Surgical History: Reports: Other (See Below) Other Musculoskeletal Surgeries/Procedures:: knee surgery - Dr. Art about 10 years ago Oncologic Surgical History: Reports: None Dermatological Surgical History: Reports: None Social & Family History - Family History Family Medical History: No Pertinent Family History - Tobacco Use Tobacco Use Status *Q: Never Tobacco User Second Hand Smoke Exposure: Yes - Caffeine Use Caffeine Use: Reports: None - Recreational Drug Use Recreational Drug Use: No H&P Review of Systems - Review of Systems: Review Of Systems: See Below General: Reports: Malaise, Weakness. Denies: Fever, Chills Pulmonary: Denies: Shortness of Breath, Wheezing, Pleuritic Chest Pain Cardiovascular: Denies: Chest Pain, Palpitations, Dyspnea on Exertion Gastrointestinal: Reports: Nausea. Denies: Abdominal Pain, Anorexia, Black Stoo l, Bloody Stool, Difficulty Swallowing, Hematemesis, Vomiting Genitourinary: Reports: Retention. Denies: Dysuria, Frequency, Burning, Pain Musculoskeletal: Denies: Neck Pain, Shoulder Pain, Arm Pain Skin: Denies: Cyanosis, Jaundice, Mottled Psychiatric: Reports: Anxiety. Denies: Confusion, Depression, Hallucinations, Suicidal Ideation, Hallucinations (Auditory) Neurological: Reports: Confusion, Weakness. Denies: Dizziness, Headache, Numbness, Seizure, Syncope Exam - Exam Exam: See Below - Vital Signs Vital Signs: Last Vital Signs Temp 36.3 C 02/09/21 20:07 Pulse 86 02/09/21 20:07 Resp 16 02/09/21 20:07 BP 156/78 H 02/09/21 20:07 Pulse Ox 94 L 02/09/21 20:07 Weight: 69.5 kg - Exam General: Alert, Oriented, Cooperative Neck: Supple Lungs: Clear to Auscultation, Normal Respiratory Effort Cardiovascular: Regular Rate, Regular Rhythm GI/Abdominal Exam: Normal Bowel Sounds, Soft, Non-Tender - Patient Data Lab Results Last 24 hrs: Laboratory Results - last 24 hr 02/09/21 02/09/21 02/09/21 Range/Units 13:58 13:58 15:56 WBC 8.49 (4.0-11.0) K/uL RBC 4.21 L (4.50-5.90) M/uL Hgb 13.4 (13.0-17.0) g/dL Hct 40.4 (38.0-50.0) % MCV 96.0 (80.0-98.0) fL MCH 31.8 (27.0-32.0) pg MCHC 33.2 (31.0-37.0) g/dL RDW Std Deviation 49.8 (28.0-62.0) fl RDW Coeff of Ken 14 (11.0-15.0) % Plt Count 203 (150-400) K/uL MPV 8.90 (7.40-12.00) fL Neut % (Auto) 76.9 (48.0-80.0) % Lymph % (Auto) 14.4 L (16.0-40.0) % [place] % (Auto) 7.8 (0.0-15.0) % Eos % (Auto) 0.8 (0.0-7.0) % Baso % (Auto) 0.1 (0.0-1.5) % Neut # (Auto) 6.5 H (1.4-5.7) K/uL Lymph # (Auto) 1.2 (0.6-2.4) K/uL [place] # (Auto) 0.7 (0.0-0.8) K/uL Eos # (Auto) 0.1 (0.0-0.7) K/uL Baso # (Auto) 0.0 (0.0-0.1) K/uL Nucleated RBC % 0.0 /100WBC Nucleated RBCs # 0 K/uL Sodium 136 (136-148) mmol/L Potassium 5.6 H (3.5-5.1) mmol/L Chloride 103 (98-107) mmol/L Carbon Dioxide 25.2 (21.0-32.0) mmol/L BUN 38 H (7.0-18.0) mg/dL Creatinine 2.3 H (0.8-1.3) mg/dL Est Cr Clr Drug Dosing TNP Estimated GFR (MDRD) 27.5 ml/min Glucose 88 (74-106) mg/dL Calcium 8.5 (8.5-10.1) mg/dL Magnesium 2.7 H (1.8-2.4) mg/dL Total Bilirubin 0.4 (0.2-1.0) mg/dL AST 15 (15-37) IU/L ALT 23 (14-63) IU/L Alkaline Phosphatase 76 (46-116) U/L Troponin I < 0.050 (0.000-0.056) ng/mL Total Protein 6.8 (6.4-8.2) g/dL Albumin 3.6 (3.4-5.0) g/dL Globulin 3.2 (2.6-4.0) g/dL Albumin/Globulin Ratio 1.1 (0.9-1.6) Urine Color Urine Appearance Urine pH (5.0-8.0) Ur Specific [place] (1.001-1.035) Urine Protein (NEGATIVE) mg/dL Urine Glucose (UA) (NEGATIVE) mg/dL Urine Ketones (NEGATIVE) mg/dL Urine Occult Blood (NEGATIVE) Urine Nitrite (NEGATIVE) Urine Bilirubin (NEGATIVE) Urine Urobilinogen (<2.0) EU/dL Ur Leukocyte Esterase (NEGATIVE) SARS-CoV-2 RNA (CITLALI) NEGATIVE (NEGATIVE) 02/09/21 Range/Units 18:03 WBC (4.0-11.0) K/uL RBC (4.50-5.90) M/uL Hgb (13.0-17.0) g/dL Hct (38.0-50.0) % MCV (80.0-98.0) fL MCH (27.0-32.0) pg MCHC (31.0-37.0) g/dL RDW Std Deviation (28.0-62.0) fl RDW Coeff of Ken (11.0-15.0) % Plt Count (150-400) K/uL MPV (7.40-12.00) fL Neut % (Auto) (48.0-80.0) % Lymph % (Auto) (16.0-40.0) % [place] % (Auto) (0.0-15.0) % Eos % (Auto) (0.0-7.0) % Baso % (Auto) (0.0-1.5) % Neut # (Auto) (1.4-5.7) K/uL Lymph # (Auto) (0.6-2.4) K/uL [place] # (Auto) (0.0-0.8) K/uL Eos # (Auto) (0.0-0.7) K/uL Baso # (Auto) (0.0-0.1) K/uL Nucleated RBC % /100WBC Nucleated RBCs # K/uL Sodium (136-148) mmol/L Potassium (3.5-5.1) mmol/L Chloride (98-107) mmol/L Carbon Dioxide (21.0-32.0) mmol/L BUN (7.0-18.0) mg/dL Creatinine (0.8-1.3) mg/dL Est Cr Clr Drug Dosing Estimated GFR (MDRD) ml/min Glucose (74-106) mg/dL Calcium (8.5-10.1) mg/dL Magnesium (1.8-2.4) mg/dL Total Bilirubin (0.2-1.0) mg/dL AST (15-37) IU/L ALT (14-63) IU/L Alkaline Phosphatase (46-116) U/L Troponin I (0.000-0.056) ng/mL Total Protein (6.4-8.2) g/dL Albumin (3.4-5.0) g/dL Globulin (2.6-4.0) g/dL Albumin/Globulin Ratio (0.9-1.6) Urine Color YELLOW Urine Appearance CLEAR Urine pH 6.5 (5.0-8.0) Ur Specific [place] 1.015 (1.001-1.035) Urine Protein NEGATIVE (NEGATIVE) mg/dL Urine Glucose (UA) NEGATIVE (NEGATIVE) mg/dL Urine Ketones NEGATIVE (NEGATIVE) mg/dL Urine Occult Blood NEGATIVE (NEGATIVE) Urine Nitrite NEGATIVE (NEGATIVE) Urine Bilirubin NEGATIVE (NEGATIVE) Urine Urobilinogen 0.2 (<2.0) EU/dL Ur Leukocyte Esterase NEGATIVE (NEGATIVE) SARS-CoV-2 RNA (CITLALI) (NEGATIVE) Result Diagrams: 02/09/21 13:58 02/09/21 13:58 Sepsis Event Note - Evaluation Sepsis Screening Result: No Definite Risk - Focused Exam Vital Signs: Vital Signs Temp Temp Pulse Resp BP Pulse Ox 02/09/21 20:07 36.3 C 86 16 156/78 H 94 L 02/09/21 18:30 89 18 141/86 H 94 L 02/09/21 18:00 88 18 129/74 95 02/09/21 17:30 78 18 170/87 H 97 02/09/21 16:58 90 18 85/51 L 97 02/09/21 13:34 35.8 C L 80 18 95/52 L 96 Problem List Initiated/Reviewed/Updated: Yes Orders Last 24hrs: Active Orders 24 hr Category Date Time Status Admission Status [Patient Status] [ADT] Stat ADT 02/09/21 17:30 Active Ambulate [RC] ASDIRECTED Care 02/09/21 18:16 Active Antiembolic Devices [RC] PER UNIT ROUTINE Care 02/09/21 18:17 Active Bladder Scan [RC] ASDIRECTED Care 02/09/21 14:56 Active Mobley Catheter Insertion [Insert Urinary Catheter] [OM. Care 02/09/21 17:00 Ordered PC] Q24H Oxygen Therapy [RC] PRN Care 02/09/21 18:16 Active Pulse Oximetry [RC] PRN Care 02/09/21 18:16 Active RT Aerosol Therapy [RC] ASDIRECTED Care 02/09/21 18:17 Active Telemetry Monitoring [Cardiac Monitoring] [RC] Q8H Care 02/09/21 18:56 Active Urinary Catheter Assessment [RC] ASDIRECTED Care 02/09/21 16:56 Active VTE/DVT Education [RC] PER UNIT ROUTINE Care 02/09/21 18:16 Active Vital Signs [RC] Q4H Care 02/09/21 18:16 Active Consult to Physical Therapy [PT Evaluation and Cons 02/09/21 23:50 Ordered Treatment] [CONS] Routine Heart Healthy Diet [DIET] Diet 02/09/21 Dinner Active Acetaminophen [TylenoL] Med 02/09/21 18:16 Active 650 mg PO Q4H PRN Albuterol/Ipratropium [DuoNeb 3.0-0.5 MG/3 ML] Med 02/09/21 18:16 Active 3 ml NEB Q4HRRT PRN Heparin Sodium Med 02/09/21 18:30 Active 5,000 units SUBCUT Q8H Lactated Ringers [Ringers, Lactated] 1,000 ml Med 02/09/21 18:30 Active IV ASDIRECTED Ondansetron [Zofran] Med 02/09/21 18:16 Active 4 mg IVPUSH Q4H PRN Sequential Compression Device [OM.PC] Per Unit Routine Oth 02/09/21 18:16 Ordered Medication Orders Acetaminophen (Acetaminophen 325 Mg Tab) 650 mg PO Q4H PRN PRN Reason: Pain (Mild 1-3)/fever Last Admin: 02/09/21 20:18 Dose: 650 mg Documented by: ALYSON Albuterol/Ipratropium (Albuterol/Ipratropium 3.0-0.5 Mg/3 Ml Neb Soln) 3 ml NEB Q4HRRT PRN PRN Reason: Shortness Of Breath/wheezing Heparin Sodium (Porcine) (Heparin Sodium 5,000 Units/Ml Vial) 5,000 units SUBCUT Q8H EDU Last Admin: 02/09/21 20:18 Dose: 5,000 units Documented by: ALYSON Lactated Ringer's (Ringers, Lactated) 1,000 mls @ 125 mls/hr IV ASDIRECTED [facility] Last Admin: 02/09/21 20:10 Dose: 125 mls/hr Documented by: ALYSON Ondansetron HCl (Ondansetron 4 Mg/2 Ml Sdv) 4 mg IVPUSH Q4H PRN PRN Reason: Nausea/Vomiting Assessment/Plan Comment:: 80-year-old male admitted for MANSOOR or CKD, hyperkalemia Continue IV fluids, possible renal component due to recent Bactrim usage versus post renal obstructive uropathy Continue Mobley for now, We will check UA for UTI Recheck BMP in a.m. Patient was counseled not to take any supplements without proper medical supervision Will resume home meds as appropriate We will consult physical therapy for appropriate disposition
[2021-02-10] MEDS: Heparin Sodium 5,000 Units/ML Vial SUBCUT SCH ×3 (04:24→17:41)
[2021-02-10 06:53] LABS: CARBON DIOXIDE,CO2 25.7 mmol/L (21.0-32.0); POTASSIUM,K 5.5 mmol/L (3.5-5.1)
[2021-02-10] MEDS: Tamsulosin 0.4 MG Cap.ER PO SCH ×2 (08:28→17:41)
[2021-02-10] MEDS: Finasteride 5 MG Tab PO SCH (08:28)
[2021-02-10] MEDS: Lactated Ringers 1,000 ML IV SCH (09:20)
--- NOTE | 2021-02-10 14:14 | PCM.PN ---
- General Info Date of Service: 02/10/21 Admission Dx/Problem (Free Text): Admission Diagnosis/Problem Admission Diagnosis/Problem Acute kidney injury Subjective Update: Patient seen at bedside, having his breakfast, states that he feels much better, was advised physical therapy and is at at his baseline. Mobley in place draining clear urine, patient is hesitant on undergoing voiding trial and states that he would like to keep the Mobley in until he sees his urologist upon discharge. Functional Status: Reports: Tolerating Diet, Ambulating, Urinating - Review of Systems General: Denies: Fever, Weakness, Fatigue Pulmonary: Denies: Shortness of Breath, Pleuritic Chest Pain Cardiovascular: Denies: Chest Pain, Palpitations, Dyspnea on Exertion Gastrointestinal: Denies: Abdominal Pain, Constipation, Decreased Appetite Genitourinary: Denies: Dysuria, Frequency, Burning, Pain Musculoskeletal: Denies: Neck Pain, Shoulder Pain, Arm Pain Skin: Denies: Cyanosis, Jaundice, Mottled - Patient Data Vitals - Most Recent: Last Vital Signs Temp 36.4 C 02/10/21 12:00 Pulse 71 02/10/21 12:00 Resp 18 02/10/21 12:00 BP 114/75 02/10/21 12:00 Pulse Ox 97 02/10/21 12:00 Weight - Most Recent: 69.5 kg I&O - Last 24 Hours: Intake & Output 02/09/21 02/10/21 02/10/21 22:59 06:59 14:59 Intake Total 900 Output Total 1250 Balance -350 Lab Results Last 24 Hours: Laboratory Results - last 24 hr 02/09/21 02/09/21 02/09/21 Range/Units 13:58 15:56 18:03 WBC (4.0-11.0) K/uL RBC (4.50-5.90) M/uL Hgb (13.0-17.0) g/dL Hct (38.0-50.0) % MCV (80.0-98.0) fL MCH (27.0-32.0) pg MCHC (31.0-37.0) g/dL RDW Std Deviation (28.0-62.0) fl RDW Coeff of Ken (11.0-15.0) % Plt Count (150-400) K/uL MPV (7.40-12.00) fL Neut % (Auto) (48.0-80.0) % Lymph % (Auto) (16.0-40.0) % Marin % (Auto) (0.0-15.0) % Eos % (Auto) (0.0-7.0) % Baso % (Auto) (0.0-1.5) % Neut # (Auto) (1.4-5.7) K/uL Lymph # (Auto) (0.6-2.4) K/uL Marin # (Auto) (0.0-0.8) K/uL Eos # (Auto) (0.0-0.7) K/uL Baso # (Auto) (0.0-0.1) K/uL Nucleated RBC % /100WBC Nucleated RBCs # K/uL Sodium 136 (136-148) mmol/L Potassium 5.6 H (3.5-5.1) mmol/L Chloride 103 (98-107) mmol/L Carbon Dioxide 25.2 (21.0-32.0) mmol/L BUN 38 H (7.0-18.0) mg/dL Creatinine 2.3 H (0.8-1.3) mg/dL Est Cr Clr Drug Dosing TNP Estimated GFR (MDRD) 27.5 ml/min Glucose 88 (74-106) mg/dL Calcium 8.5 (8.5-10.1) mg/dL Phosphorus (2.6-4.7) mg/dL Magnesium 2.7 H (1.8-2.4) mg/dL Total Bilirubin 0.4 (0.2-1.0) mg/dL AST 15 (15-37) IU/L ALT 23 (14-63) IU/L Alkaline Phosphatase 76 (46-116) U/L Troponin I < 0.050 (0.000-0.056) ng/mL Total Protein 6.8 (6.4-8.2) g/dL Albumin 3.6 (3.4-5.0) g/dL Globulin 3.2 (2.6-4.0) g/dL Albumin/Globulin Ratio 1.1 (0.9-1.6) Urine Color YELLOW Urine Appearance CLEAR Urine pH 6.5 (5.0-8.0) Ur Specific [place] 1.015 (1.001-1.035) Urine Protein NEGATIVE (NEGATIVE) mg/dL Urine Glucose (UA) NEGATIVE (NEGATIVE) mg/dL Urine Ketones NEGATIVE (NEGATIVE) mg/dL Urine Occult Blood NEGATIVE (NEGATIVE) Urine Nitrite NEGATIVE (NEGATIVE) Urine Bilirubin NEGATIVE (NEGATIVE) Urine Urobilinogen 0.2 (<2.0) EU/dL Ur Leukocyte Esterase NEGATIVE (NEGATIVE) SARS-CoV-2 RNA (CITLALI) NEGATIVE (NEGATIVE) 02/10/21 02/10/21 Range/Units 05:15 05:15 WBC 7.68 (4.0-11.0) K/uL RBC 4.08 L (4.50-5.90) M/uL Hgb 12.8 L (13.0-17.0) g/dL Hct 38.9 (38.0-50.0) % MCV 95.3 (80.0-98.0) fL MCH 31.4 (27.0-32.0) pg MCHC 32.9 (31.0-37.0) g/dL RDW Std Deviation 48.8 (28.0-62.0) fl RDW Coeff of Ken 14 (11.0-15.0) % Plt Count 208 (150-400) K/uL MPV 9.20 (7.40-12.00) fL Neut % (Auto) 65.9 (48.0-80.0) % Lymph % (Auto) 22.5 (16.0-40.0) % Marin % (Auto) 8.9 (0.0-15.0) % Eos % (Auto) 2.3 (0.0-7.0) % Baso % (Auto) 0.4 (0.0-1.5) % Neut # (Auto) 5.1 (1.4-5.7) K/uL Lymph # (Auto) 1.7 (0.6-2.4) K/uL Marin # (Auto) 0.7 (0.0-0.8) K/uL Eos # (Auto) 0.2 (0.0-0.7) K/uL Baso # (Auto) 0.0 (0.0-0.1) K/uL Nucleated RBC % 0.0 /100WBC Nucleated RBCs # 0 K/uL Sodium 137 (136-148) mmol/L Potassium 5.5 H (3.5-5.1) mmol/L Chloride 105 (98-107) mmol/L Carbon Dioxide 25.7 (21.0-32.0) mmol/L BUN 36 H (7.0-18.0) mg/dL Creatinine 2.0 H (0.8-1.3) mg/dL Est Cr Clr Drug Dosing 26.58 Estimated GFR (MDRD) 32.3 ml/min Glucose 75 (74-106) mg/dL Calcium 8.2 L (8.5-10.1) mg/dL Phosphorus 3.1 (2.6-4.7) mg/dL Magnesium (1.8-2.4) mg/dL Total Bilirubin (0.2-1.0) mg/dL AST (15-37) IU/L ALT (14-63) IU/L Alkaline Phosphatase (46-116) U/L Troponin I (0.000-0.056) ng/mL Total Protein (6.4-8.2) g/dL Albumin (3.4-5.0) g/dL Globulin (2.6-4.0) g/dL Albumin/Globulin Ratio (0.9-1.6) Urine Color Urine Appearance Urine pH (5.0-8.0) Ur Specific [place] (1.001-1.035) Urine Protein (NEGATIVE) mg/dL Urine Glucose (UA) (NEGATIVE) mg/dL Urine Ketones (NEGATIVE) mg/dL Urine Occult Blood (NEGATIVE) Urine Nitrite (NEGATIVE) Urine Bilirubin (NEGATIVE) Urine Urobilinogen (<2.0) EU/dL Ur Leukocyte Esterase (NEGATIVE) SARS-CoV-2 RNA (CITLALI) (NEGATIVE) Med Orders - Current: Current Medications Acetaminophen (Acetaminophen 325 Mg Tab) 650 mg PO Q4H PRN PRN Reason: Pain (Mild 1-3)/fever Last Admin: 02/09/21 20:18 Dose: 650 mg Documented by: Albuterol/Ipratropium (Albuterol/Ipratropium 3.0-0.5 Mg/3 Ml Neb Soln) 3 ml NEB Q4HRRT PRN PRN Reason: Shortness Of Breath/wheezing Finasteride (Finasteride 5 Mg Tab) 5 mg PO DAILY EDU Last Admin: 02/10/21 08:28 Dose: 5 mg Documented by: Heparin Sodium (Porcine) (Heparin Sodium 5,000 Units/Ml Vial) 5,000 units SUBCUT Q8H [facility] Last Admin: 02/10/21 10:12 Dose: 5,000 units Documented by: Lactated Ringer's (Ringers, Lactated) 1,000 mls @ 125 mls/hr IV ASDIRECTED [facility] Last Admin: 02/10/21 09:20 Dose: 125 mls/hr Documented by: Ondansetron HCl (Ondansetron 4 Mg/2 Ml Sdv) 4 mg IVPUSH Q4H PRN PRN Reason: Nausea/Vomiting Tamsulosin HCl (Tamsulosin 0.4 Mg Cap.Er) 0.4 mg PO BIDPC [facility] Last Admin: 02/10/21 08:28 Dose: 0.4 mg Documented by: Discontinued Medications Sodium Chloride (Normal Saline) 500 mls @ 999 mls/hr IV ONETIME ONE Stop: 02/09/21 17:32 Last Admin: 02/09/21 17:45 Dose: 999 mls/hr Documented by: Sodium Chloride (Sodium Chloride 0.9% 10 Ml Sdv) 500 ml IV NOW STA Stop: 02/09/21 16:55 Last Admin: 02/09/21 17:20 Dose: Not Given Documented by: - Exam Quality Assessment: Supplemental Oxygen Urinary Catheter Total Time: 0Days 10Hours General: Alert, Oriented Neck: Supple, Trachea Midline Lungs: Clear to Auscultation, Normal Respiratory Effort Cardiovascular: Regular Rate, Regular Rhythm GI/Abdominal Exam: Normal Bowel Sounds, Soft, Non-Tender - Patient Data Lab Results Last 24 hrs: Laboratory Results - last 24 hr 02/09/21 02/09/21 02/09/21 Range/Units 13:58 15:56 18:03 WBC (4.0-11.0) K/uL RBC (4.50-5.90) M/uL Hgb (13.0-17.0) g/dL Hct (38.0-50.0) % MCV (80.0-98.0) fL MCH (27.0-32.0) pg MCHC (31.0-37.0) g/dL RDW Std Deviation (28.0-62.0) fl RDW Coeff of Ken (11.0-15.0) % Plt Count (150-400) K/uL MPV (7.40-12.00) fL Neut % (Auto) (48.0-80.0) % Lymph % (Auto) (16.0-40.0) % Marin % (Auto) (0.0-15.0) % Eos % (Auto) (0.0-7.0) % Baso % (Auto) (0.0-1.5) % Neut # (Auto) (1.4-5.7) K/uL Lymph # (Auto) (0.6-2.4) K/uL Marin # (Auto) (0.0-0.8) K/uL Eos # (Auto) (0.0-0.7) K/uL Baso # (Auto) (0.0-0.1) K/uL Nucleated RBC % /100WBC Nucleated RBCs # K/uL Sodium 136 (136-148) mmol/L Potassium 5.6 H (3.5-5.1) mmol/L Chloride 103 (98-107) mmol/L Carbon Dioxide 25.2 (21.0-32.0) mmol/L BUN 38 H (7.0-18.0) mg/dL Creatinine 2.3 H (0.8-1.3) mg/dL Est Cr Clr Drug Dosing TNP Estimated GFR (MDRD) 27.5 ml/min Glucose 88 (74-106) mg/dL Calcium 8.5 (8.5-10.1) mg/dL Phosphorus (2.6-4.7) mg/dL Magnesium 2.7 H (1.8-2.4) mg/dL Total Bilirubin 0.4 (0.2-1.0) mg/dL AST 15 (15-37) IU/L ALT 23 (14-63) IU/L Alkaline Phosphatase 76 (46-116) U/L Troponin I < 0.050 (0.000-0.056) ng/mL Total Protein 6.8 (6.4-8.2) g/dL Albumin 3.6 (3.4-5.0) g/dL Globulin 3.2 (2.6-4.0) g/dL Albumin/Globulin Ratio 1.1 (0.9-1.6) Urine Color YELLOW Urine Appearance CLEAR Urine pH 6.5 (5.0-8.0) Ur Specific [place] 1.015 (1.001-1.035) Urine Protein NEGATIVE (NEGATIVE) mg/dL Urine Glucose (UA) NEGATIVE (NEGATIVE) mg/dL Urine Ketones NEGATIVE (NEGATIVE) mg/dL Urine Occult Blood NEGATIVE (NEGATIVE) Urine Nitrite NEGATIVE (NEGATIVE) Urine Bilirubin NEGATIVE (NEGATIVE) Urine Urobilinogen 0.2 (<2.0) EU/dL Ur Leukocyte Esterase NEGATIVE (NEGATIVE) SARS-CoV-2 RNA (CITLALI) NEGATIVE (NEGATIVE) 02/10/21 02/10/21 Range/Units 05:15 05:15 WBC 7.68 (4.0-11.0) K/uL RBC 4.08 L (4.50-5.90) M/uL Hgb 12.8 L (13.0-17.0) g/dL Hct 38.9 (38.0-50.0) % MCV 95.3 (80.0-98.0) fL MCH 31.4 (27.0-32.0) pg MCHC 32.9 (31.0-37.0) g/dL RDW Std Deviation 48.8 (28.0-62.0) fl RDW Coeff of Ken 14 (11.0-15.0) % Plt Count 208 (150-400) K/uL MPV 9.20 (7.40-12.00) fL Neut % (Auto) 65.9 (48.0-80.0) % Lymph % (Auto) 22.5 (16.0-40.0) % Marin % (Auto) 8.9 (0.0-15.0) % Eos % (Auto) 2.3 (0.0-7.0) % Baso % (Auto) 0.4 (0.0-1.5) % Neut # (Auto) 5.1 (1.4-5.7) K/uL Lymph # (Auto) 1.7 (0.6-2.4) K/uL Marin # (Auto) 0.7 (0.0-0.8) K/uL Eos # (Auto) 0.2 (0.0-0.7) K/uL Baso # (Auto) 0.0 (0.0-0.1) K/uL Nucleated RBC % 0.0 /100WBC Nucleated RBCs # 0 K/uL Sodium 137 (136-148) mmol/L Potassium 5.5 H (3.5-5.1) mmol/L Chloride 105 (98-107) mmol/L Carbon Dioxide 25.7 (21.0-32.0) mmol/L BUN 36 H (7.0-18.0) mg/dL Creatinine 2.0 H (0.8-1.3) mg/dL Est Cr Clr Drug Dosing 26.58 Estimated GFR (MDRD) 32.3 ml/min Glucose 75 (74-106) mg/dL Calcium 8.2 L (8.5-10.1) mg/dL Phosphorus 3.1 (2.6-4.7) mg/dL Magnesium (1.8-2.4) mg/dL Total Bilirubin (0.2-1.0) mg/dL AST (15-37) IU/L ALT (14-63) IU/L Alkaline Phosphatase (46-116) U/L Troponin I (0.000-0.056) ng/mL Total Protein (6.4-8.2) g/dL Albumin (3.4-5.0) g/dL Globulin (2.6-4.0) g/dL Albumin/Globulin Ratio (0.9-1.6) Urine Color Urine Appearance Urine pH (5.0-8.0) Ur Specific [place] (1.001-1.035) Urine Protein (NEGATIVE) mg/dL Urine Glucose (UA) (NEGATIVE) mg/dL Urine Ketones (NEGATIVE) mg/dL Urine Occult Blood (NEGATIVE) Urine Nitrite (NEGATIVE) Urine Bilirubin (NEGATIVE) Urine Urobilinogen (<2.0) EU/dL Ur Leukocyte Esterase (NEGATIVE) SARS-CoV-2 RNA (CITLALI) (NEGATIVE) Result Diagrams: 02/10/21 05:15 02/10/21 05:15 Sepsis Event Note - Evaluation Sepsis Screening Result: No Definite Risk - Focused Exam Vital Signs: Vital Signs Temp Temp Pulse Resp BP Pulse Ox 02/10/21 12:00 36.4 C 71 18 114/75 97 02/10/21 08:00 36.4 C 83 16 103/63 95 02/10/21 04:00 36.0 C L 72 18 165/86 H 02/10/21 02:15 164/82 H - Problem List Review Problem List Initiated/Reviewed/Updated: Yes - My Orders Last 24 Hours: My Active Orders 02/09/21 Dinner Heart Healthy Diet [DIET] 02/09/21 18:16 Ambulate [RC] ASDIRECTED Oxygen Therapy [RC] PRN Pulse Oximetry [RC] PRN VTE/DVT Education [RC] PER UNIT ROUTINE Vital Signs [RC] Q4H Acetaminophen [TylenoL] 650 mg PO Q4H PRN Albuterol/Ipratropium [DuoNeb 3.0-0.5 MG/3 ML] 3 ml NEB Q4HRRT PRN Ondansetron [Zofran] 4 mg IVPUSH Q4H PRN Sequential Compression Device [OM.PC] Per Unit Routine 02/09/21 18:17 Antiembolic Devices [RC] PER UNIT ROUTINE RT Aerosol Therapy [RC] ASDIRECTED 02/09/21 18:30 Heparin Sodium 5,000 units SUBCUT Q8H Lactated Ringers [Ringers, Lactated] 1,000 ml IV ASDIRECTED 02/09/21 18:56 Telemetry Monitoring [Cardiac Monitoring] [RC] Q8H 02/09/21 23:50 Consult to Physical Therapy [PT Evaluation and Treatment] [CONS] Routine 02/10/21 08:30 Tamsulosin [Flomax] 0.4 mg PO BIDPC 02/10/21 09:00 Finasteride [Proscar] 5 mg PO DAILY - Plan Plan:: 80-year-old male admitted for MANSOOR or CKD, hyperkalemia Continue IV fluids, possible renal component due to recent Bactrim usage versus post renal obstructive uropathy Continue Mobley for now, UA not significant for UTI MANSOOR is slowly improving, hyperkalemia is improving as well Patient was counseled not to take any supplements without proper medical supervision Will resume home meds as appropriate Physical therapy assessed the patient and patient is at baseline in terms of his ambulation and should be safe to return to [facility] upon discharge
[2021-02-10] MEDS: Calcium Carbonate 500 MG Tab.Chew PO PRN (17:40)
[2021-02-11] MEDS ORDERED: diphenhydrAMINE 50 MG/ML SDV IVPUSH ONE (02:10)
[2021-02-11] MEDS ORDERED: Haloperidol Lactate 5 MG/ML SDV IM ONE (02:12)
[2021-02-11] MEDS: Calcium Carbonate 500 MG Tab.Chew PO PRN (02:27)
[2021-02-11] MEDS: Heparin Sodium 5,000 Units/ML Vial SUBCUT SCH ×2 (02:28→10:48)
[2021-02-11 07:00] LABS: CARBON DIOXIDE,CO2 23.7 mmol/L (21.0-32.0); POTASSIUM,K 4.8 mmol/L (3.5-5.1)
[2021-02-11] MEDS: Tamsulosin 0.4 MG Cap.ER PO SCH (08:25)
[2021-02-11] MEDS: Finasteride 5 MG Tab PO SCH (08:25)
[2021-02-11 11:26] VITALS: BP 138/78; PULSE 72
--- NOTE | 2021-02-11 11:28 | PCM.DCSUM1 ---
Discharge Summary - Hospital Course Diagnosis: Stroke: No - Discharge Data Discharge Disposition: Home, W Home Health Agency 06 Condition: Stable - Referral to Home Health Date of Face to Face Encounter: 02/11/21 Reason for Homebound Status: unsteady while walking, fall risk, needing walker or a cane Primary Care Physician: Jamarcus Sin MD Skilled Need: RN to monitor/ assement of recent excerbation diagnosis. [facility] - Patient Summary/Data Consults: Consultations 02/09/21 23:50 Consult to Physical Therapy [PT Evaluation and Treatment] [CONS] Routine 02/11/21 09:56 Consult to Home Health [CONS] Routine - Patient Instructions Diet: Heart Healthy Diet Activity: As Tolerated Driving: Do Not Drive Showering/Bathing: May Shower Notify Provider of: Fever, Increased Pain, Swelling and Redness, Drainage, Nausea and/or Vomiting - Discharge Plan *PRESCRIPTION DRUG MONITORING PROGRAM REVIEWED*: Not Applicable *COPY OF PRESCRIPTION DRUG MONITORING REPORT IN PATIENT PATRICIA: Not Applicable Home Medications: Home Meds Tamsulosin [Flomax] 0.4 mg PO BIDPC #60 cap.er 11/27/20 [Rx] Finasteride [Proscar] 5 mg PO DAILY 02/09/21 [History] Furosemide 20 mg PO DAILY PRN 02/10/21 [History] Referrals: Jamarcus Sin MD [Primary Care Provider] - 02/18/21 9:30 am - Patient Data Vitals - Most Recent: Last Vital Signs Temp 36.6 C 02/11/21 11:25 Pulse 72 02/11/21 11:25 Resp 16 02/11/21 11:25 BP 138/78 02/11/21 11:25 Pulse Ox 96 02/11/21 11:25 Weight - Most Recent: 69.5 kg I&O - Last 24 hours: Intake & Output 02/10/21 02/11/21 02/11/21 22:59 06:59 14:59 Intake Total 900 400 Output Total 700 1050 650 Balance 200 -650 -650 Lab Results - Last 24 hrs: Laboratory Results - last 24 hr 02/11/21 02/11/21 Range/Units 05:13 05:13 WBC 7.74 (4.0-11.0) K/uL RBC 4.21 L (4.50-5.90) M/uL Hgb 13.5 (13.0-17.0) g/dL Hct 40.1 (38.0-50.0) % MCV 95.2 (80.0-98.0) fL MCH 32.1 H (27.0-32.0) pg MCHC 33.7 (31.0-37.0) g/dL RDW Std Deviation 49.1 (28.0-62.0) fl RDW Coeff of Ken 14 (11.0-15.0) % Plt Count 226 (150-400) K/uL MPV 9.60 (7.40-12.00) fL Neut % (Auto) 64.2 (48.0-80.0) % Lymph % (Auto) 23.9 (16.0-40.0) % Stephen[place] % (Auto) 9.0 (0.0-15.0) % Eos % (Auto) 2.5 (0.0-7.0) % Baso % (Auto) 0.4 (0.0-1.5) % Neut # (Auto) 5.0 (1.4-5.7) K/uL Lymph # (Auto) 1.9 (0.6-2.4) K/uL [place] # (Auto) 0.7 (0.0-0.8) K/uL Eos # (Auto) 0.2 (0.0-0.7) K/uL Baso # (Auto) 0.0 (0.0-0.1) K/uL Nucleated RBC % 0.0 /100WBC Nucleated RBCs # 0 K/uL Sodium 137 (136-148) mmol/L Potassium 4.8 (3.5-5.1) mmol/L Chloride 105 (98-107) mmol/L Carbon Dioxide 23.7 (21.0-32.0) mmol/L BUN 31 H (7.0-18.0) mg/dL Creatinine 1.7 H (0.8-1.3) mg/dL Est Cr Clr Drug Dosing 31.27 mL/min Estimated GFR (MDRD) 39.0 ml/min Glucose 76 (74-106) mg/dL Calcium 8.6 (8.5-10.1) mg/dL Phosphorus 3.2 (2.6-4.7) mg/dL Magnesium 2.3 (1.8-2.4) mg/dL Med Orders - Current: Current Medications Acetaminophen (Acetaminophen 325 Mg Tab) 650 mg PO Q4H PRN PRN Reason: Pain (Mild 1-3)/fever Last Admin: 02/09/21 20:18 Dose: 650 mg Documented by: Albuterol/Ipratropium (Albuterol/Ipratropium 3.0-0.5 Mg/3 Ml Neb Soln) 3 ml NEB Q4HRRT PRN PRN Reason: Shortness Of Breath/wheezing Calcium Carbonate/Glycine (Calcium Carbonate 500 Mg Tab.Chew) 500 mg PO Q2HR PRN PRN Reason: Indigestion Last Admin: 02/11/21 02:27 Dose: 500 mg Documented by: Finasteride (Finasteride 5 Mg Tab) 5 mg PO DAILY [facility] Last Admin: 02/11/21 08:25 Dose: 5 mg Documented by: Heparin Sodium (Porcine) (Heparin Sodium 5,000 Units/Ml Vial) 5,000 units SUBCUT Q8H [facility] Last Admin: 02/11/21 10:48 Dose: 5,000 units Documented by: Lactated Ringer's (Ringers, Lactated) 1,000 mls @ 125 mls/hr IV ASDIRECTED [facility] Last Admin: 02/10/21 09:20 Dose: 125 mls/hr Documented by: Ondansetron HCl (Ondansetron 4 Mg/2 Ml Sdv) 4 mg IVPUSH Q4H PRN PRN Reason: Nausea/Vomiting Tamsulosin HCl (Tamsulosin 0.4 Mg Cap.Er) 0.4 mg PO BIDPC [facility] Last Admin: 02/11/21 08:25 Dose: 0.4 mg Documented by: Discontinued Medications Diphenhydramine HCl (Diphenhydramine 50 Mg/Ml Sdv) 25 mg IVPUSH ONETIME ONE Stop: 02/11/21 02:11 Last Admin: 02/11/21 02:47 Dose: 25 mg Documented by: Haloperidol Lactate (Haloperidol Lactate 5 Mg/Ml Sdv) 2 mg IM ONETIME ONE Stop: 02/11/21 02:13 Last Admin: 02/11/21 02:44 Dose: 2 mg Documented by: Sodium Chloride (Normal Saline) 500 mls @ 999 mls/hr IV ONETIME ONE Stop: 08/29/21 17:32 Last Admin: 02/09/21 17:45 Dose: 999 mls/hr Documented by: Sodium Chloride (Sodium Chloride 0.9% 10 Ml Sdv) 500 ml IV NOW STA Stop: 02/09/21 16:55 Last Admin: 02/09/21 17:20 Dose: Not Given Documented by:
== END 2021-02-11 14:05 | disposition home health service (06) | DRG 641 ==
LOC: MW.ED 11:47 → MW.MS 17:30
PROVIDERS: ADMIT Student in an Organized Health Care Education/Training Program; ATTEND Student in an Organized Health Care Education/Training Program
DX: E87.5 Hyperkalemia (principal); N17.9 Acute kidney failure, unspecified; N18.9 Chronic kidney disease, unspecified; Z20.822 Contact with and (suspected) exposure to COVID-19; N40.1 Benign prostatic hyperplasia with lower urinary tract symptoms; R33.8 Other retention of urine; Z86.19 Personal history of other infectious and parasitic diseases; Z90.49 Acquired absence of other specified parts of digestive tract; Z87.442 Personal history of urinary calculi; Z98.49 Cataract extraction status, unspecified eye; Z79.899 Other long term (current) drug therapy
CPT/HCPCS: 36415; 70450; 71046; 74176; 80053; 83735; 84484; 85025; 93005; U0002; 80048; 81003; 84100; 97161-GP; 99285-25; A9270-GY; J1200; J1630; J1644; J7040; J7120

== ENCOUNTER 2022-07-07 19:15 | Emergency (ER) | payer MEDICARE, OTHER ==
[2022-07-07 20:34] LABS: CARBON DIOXIDE,CO2 27.3 mmol/L (21.0-32.0); POTASSIUM,K 4.2 mmol/L (3.5-5.1)
[2022-07-07 21:41] VITALS: BP 167/117; PULSE 81
== END 2022-07-07 21:40 | disposition home or self-care (01) ==
LOC: MW.ED 19:15
DX: K11.7 Disturbances of salivary secretion (principal); Z79.899 Other long term (current) drug therapy; Z20.822 Contact with and (suspected) exposure to COVID-19; W01.10XA Fall on same level from slipping, tripping and stumbling with subsequent striking against unspecified object, initial encounter
CPT/HCPCS: 36415; 70450; 71045; 80053; 81003; 83735; 85025; 85610; 85730; 93005; 99285; U0002

== ENCOUNTER 2022-08-11 10:24 | Emergency (ER) | payer MEDICARE, OTHER ==
[2022-08-11] MEDS ORDERED: Sodium Chloride 0.9% 2.5 ML Syringe FLUSH PRN (10:34)
[2022-08-11] MEDS ORDERED: Sodium Chloride 0.9% 10 ML Syringe FLUSH PRN (10:34)
[2022-08-11 11:17] LABS: CARBON DIOXIDE,CO2 25.8 mmol/L (21.0-32.0); POTASSIUM,K 4.1 mmol/L (3.5-5.1)
[2022-08-11 11:41] LABS: CORONAVIRUS COVID-19 NAA NEGATIVE (NEGATIVE); INFLUENZA A NAA NEGATIVE (NEGATIVE); INFLUENZA B NAA NEGATIVE (NEGATIVE)
[2022-08-11] MEDS ORDERED: Iopamidol 755 MG/ML 500 ML Multipack Bottle IVPUSH STA (12:14)
[2022-08-11 12:56] VITALS: BP 170/94; PULSE 75
== END 2022-08-11 14:32 | disposition home or self-care (01) ==
LOC: MW.ED 10:24
DX: R53.1 Weakness (principal); Z79.899 Other long term (current) drug therapy; Z20.822 Contact with and (suspected) exposure to COVID-19
CPT/HCPCS: 0240U; 36415; 70450; 70496; 70498; 71045; 73502; 80053; 81003; 83735; 84484; 85025; 99285; J3490; Q9967

== ENCOUNTER 2022-10-07 04:42 | Inpatient (IN) | payer MEDICARE, OTHER ==
[2022-10-07] MEDS ORDERED: Sodium Chloride 0.9% 1,000 ML IV ONE (04:46)
[2022-10-07] MEDS ORDERED: Sodium Chloride 0.9% 10 ML Syringe FLUSH PRN (04:46)
[2022-10-07] MEDS ORDERED: Sodium Chloride 0.9% 2.5 ML Syringe FLUSH PRN (04:46)
[2022-10-07 05:02] LABS: BASOPHILS PERCENT AUTO 0.1 % (0.0-1.5); EOSINOPHILS PERCENT AUTO 0.2 % (0.0-7.0); HEMATOCRIT 42.5 % (38.0-50.0); HEMOGLOBIN 14.4 g/dL (13.0-17.0); LYMPHOCYTES ABSOLUTE AUTO 0.9 K/uL (0.6-2.4); LYMPHOCYTES PERCENT AUTO 7.1 % (16.0-40.0); MEAN CORPUSCULAR HEMOGLOBIN 32.7 pg (27.0-32.0); MEAN CORPUSCULAR HGB CONC 33.9 g/dL (31.0-37.0); MEAN CORPUSCULAR VOLUME 96.6 fL (80.0-98.0); MONOCYTES ABSOLUTE AUTO 1.3 K/uL (0.0-0.8); MONOCYTES PERCENT AUTO 10.2 % (0.0-15.0); NEUTROPHILS ABSOLUTE AUTO 10.4 K/uL (1.4-5.7); NEUTROPHILS PERCENT AUTO 82.4 % (48.0-80.0); NRBC ABSOLUTE 0 K/uL; PLATELET COUNT,PLT 186 K/uL (150-400); WHITE BLOOD CELL COUNT,WBC 12.63 K/uL (4.0-11.0)
[2022-10-07 05:13] LABS: INR 1.16 (0.86-1.11)
[2022-10-07 05:27] LABS: A/G RATIO 0.9 (0.9-1.6); ALANINE AMINOTRANSFERASE,ALT 16 IU/L (14-63); ALBUMIN 3.3 g/dL (3.4-5.0); ALKALINE PHOSPHATASE 78 U/L (46-116); ASPARTATE AMNIOTRANSFERASE,AST 18 IU/L (15-37); BILIRUBIN TOTAL 0.9 mg/dL (0.2-1.0); BLOOD UREA NITROGEN,BUN 27 mg/dL (7.0-18.0); CARBON DIOXIDE,CO2 23.6 mmol/L (21.0-32.0); CHLORIDE,CL 105 mmol/L (98-107); CREATINE KINASE,CK 159 U/L (26-308); CREATININE 1.5 mg/dL (0.8-1.3); GLUCOSE RANDOM 118 mg/dL (74-106); POTASSIUM,K 3.8 mmol/L (3.5-5.1); PROTEIN TOTAL,TP 6.9 g/dL (6.4-8.2); SODIUM,NA 141 mmol/L (136-148)
[2022-10-07 05:28] LABS: ESTIMATED GFR 46 mL/min (>60)
[2022-10-07 05:30] LABS: LACTIC ACID 1.3 mmol/L (0.4-2.0)
[2022-10-07 08:48] LABS: APPEARANCE,URINE CLEAR; BILIRUBIN,URINE NEGATIVE (NEGATIVE); COLOR,URINE YELLOW; GLUCOSE,URINE NEGATIVE (NEGATIVE); KETONES,URINE NEGATIVE (NEGATIVE); LEUKOCYTE ESTERASE,URINE NEGATIVE (NEGATIVE); NITRITE,URINE NEGATIVE (NEGATIVE); OCCULT BLOOD,URINE NEGATIVE (NEGATIVE); PH,URINE 5.5 (5.0-8.0); PROTEIN,URINE NEGATIVE (NEGATIVE); UROBILINOGEN,URINE 0.2 EU/dL (<2.0)
[2022-10-07 09:02] LABS: BACTERIA,URINE NOT SEEN (NEGATIVE); EPITHELIAL CELLS,URINE RARE (NONE-FEW); RBC,URINE 0-1 (0-2/HPF); WBC,URINE NONE SEEN (0-5/HPF)
[2022-10-07] MEDS ORDERED: Ondansetron 4 MG Tab.DIS PO PRN (13:20)
[2022-10-07] MEDS ORDERED: Ondansetron 4 MG/2 ML SDV IVPUSH PRN (13:20)
[2022-10-07] MEDS ORDERED: Polyethylene Glycol 3350 Powder 17 GM Packet PO PRN ×2 (13:20→16:32)
[2022-10-07] MEDS: Sodium Chloride 0.9% 1,000 ML IV SCH (14:03)
[2022-10-07] MEDS: Enoxaparin 40 MG/0.4 ML Syringe SUBCUT SCH (14:07)
[2022-10-07] MEDS: Acetaminophen 325 MG Tab PO PRN (16:01)
[2022-10-07] MEDS ORDERED: MENTHOL TOP PRN (16:32)
[2022-10-07] MEDS ORDERED: guaiFENesin 100 MG/5 ML Soln 5 ML UD Cup PO PRN (16:32)
[2022-10-07] MEDS ORDERED: HYPROMELLOSE EYEBOTH PRN (16:32)
[2022-10-07] MEDS ORDERED: Loperamide 2 MG Cap PO PRN (16:32)
[2022-10-07] MEDS ORDERED: Trolamine Salicylate/Aloe Vera 10% Crm 85 GM Tube TOP PRN (16:32)
[2022-10-07] MEDS ORDERED: Aluminum Hydroxide/Magnesium Hydroxide/Simethicone XS Susp 30 ML Cup PO PRN (16:32)
[2022-10-07] MEDS: Docusate Sodium 100 MG Cap PO SCH (20:29)
[2022-10-07] MEDS: Rivastigmine Tartrate 1.5 MG Capsule PO SCH (20:30)
[2022-10-08] MEDS: Sodium Chloride 0.9% 1,000 ML IV SCH (01:26)
[2022-10-08] MEDS: Acetaminophen 325 MG Tab PO PRN ×3 (05:10→23:45)
[2022-10-08 06:44] LABS: BASOPHILS PERCENT AUTO 0.2 % (0.0-1.5); EOSINOPHILS ABSOLUTE AUTO 0.1 K/uL (0.0-0.7); HEMATOCRIT 39.1 % (38.0-50.0); LYMPHOCYTES ABSOLUTE AUTO 0.9 K/uL (0.6-2.4); LYMPHOCYTES PERCENT AUTO 8.6 % (16.0-40.0); MEAN CORPUSCULAR HEMOGLOBIN 32.2 pg (27.0-32.0); MEAN CORPUSCULAR HGB CONC 33.2 g/dL (31.0-37.0); MEAN CORPUSCULAR VOLUME 96.8 fL (80.0-98.0); MONOCYTES ABSOLUTE AUTO 1.3 K/uL (0.0-0.8); MONOCYTES PERCENT AUTO 12.2 % (0.0-15.0); NEUTROPHILS ABSOLUTE AUTO 8.4 K/uL (1.4-5.7); NRBC ABSOLUTE 0 K/uL; PLATELET COUNT,PLT 185 K/uL (150-400); RED BLOOD CELL COUNT 4.04 M/uL (4.50-5.90); WHITE BLOOD CELL COUNT,WBC 10.71 K/uL (4.0-11.0)
[2022-10-08] MEDS: Levothyroxine 25 MCG Tab PO SCH (06:49)
[2022-10-08] MEDS ORDERED: Omeprazole 20 MG Cap.CR PO SCH (09:00)
[2022-10-08] MEDS: Docusate Sodium 100 MG Cap PO SCH ×2 (09:01→20:29)
[2022-10-08] MEDS: Rivastigmine Tartrate 1.5 MG Capsule PO SCH ×3 (09:01→20:29)
[2022-10-08 09:08] LABS: CALCIUM 7.9 mg/dL (8.5-10.1); CARBON DIOXIDE,CO2 20.2 mmol/L (21.0-32.0); CREATININE 1.3 mg/dL (0.8-1.3); EST CRCL DRUG DOSING (CG) 39.53 mL/min; POTASSIUM,K 3.7 mmol/L (3.5-5.1)
[2022-10-08] MEDS: oxyCODONE 5 MG Tab PO PRN (10:53)
[2022-10-08] MEDS: Enoxaparin 40 MG/0.4 ML Syringe SUBCUT SCH (12:51)
[2022-10-08] MEDS: KETAMINE TOP SCH ×2 (18:48→22:20)
[2022-10-08] MEDS: BACLOFEN TOP SCH ×2 (18:48→22:20)
[2022-10-08] MEDS: GABAPENTIN TOP SCH ×2 (18:48→22:20)
[2022-10-08] MEDS: BUPIVACAINE TOP SCH ×2 (18:48→22:20)
[2022-10-08] MEDS: Tamsulosin 0.4 MG Cap.ER PO SCH (20:29)
[2022-10-09] MEDS: Acetaminophen 325 MG Tab PO PRN (03:53)
[2022-10-09] MEDS: BACLOFEN TOP SCH ×3 (06:09→21:31)
[2022-10-09] MEDS: KETAMINE TOP SCH ×3 (06:09→21:31)
[2022-10-09] MEDS: Levothyroxine 25 MCG Tab PO SCH ×2 (06:09→06:30)
[2022-10-09] MEDS: BUPIVACAINE TOP SCH ×3 (06:09→21:31)
[2022-10-09] MEDS: GABAPENTIN TOP SCH ×3 (06:09→21:31)
[2022-10-09] MEDS ORDERED: Loperamide 2 MG Cap PO PRN (06:57)
[2022-10-09] MEDS ORDERED: Magnesium Hydroxide 400 MG/5 ML Susp 30 ML Cup PO PRN (06:57)
[2022-10-09] MEDS: oxyCODONE 5 MG Tab PO PRN ×2 (07:46→20:55)
[2022-10-09] MEDS: Omeprazole 20 MG Cap.CR PO SCH (07:48)
[2022-10-09 08:20] LABS: BASOPHILS PERCENT AUTO 0.3 % (0.0-1.5); EOSINOPHILS ABSOLUTE AUTO 0.2 K/uL (0.0-0.7); EOSINOPHILS PERCENT AUTO 1.7 % (0.0-7.0); HEMATOCRIT 39.6 % (38.0-50.0); HEMOGLOBIN 13.3 g/dL (13.0-17.0); LYMPHOCYTES ABSOLUTE AUTO 1.1 K/uL (0.6-2.4); LYMPHOCYTES PERCENT AUTO 9.6 % (16.0-40.0); MEAN CORPUSCULAR HEMOGLOBIN 32.4 pg (27.0-32.0); MEAN CORPUSCULAR HGB CONC 33.6 g/dL (31.0-37.0); MEAN CORPUSCULAR VOLUME 96.4 fL (80.0-98.0); MONOCYTES ABSOLUTE AUTO 1.4 K/uL (0.0-0.8); MONOCYTES PERCENT AUTO 12.5 % (0.0-15.0); NEUTROPHILS ABSOLUTE AUTO 8.6 K/uL (1.4-5.7); NEUTROPHILS PERCENT AUTO 75.9 % (48.0-80.0); NRBC ABSOLUTE 0 K/uL; PLATELET COUNT,PLT 183 K/uL (150-400); RED BLOOD CELL COUNT 4.11 M/uL (4.50-5.90); WHITE BLOOD CELL COUNT,WBC 11.35 K/uL (4.0-11.0)
[2022-10-09] MEDS ORDERED: Furosemide 20 MG Tab PO SCH (09:00)
[2022-10-09 09:04] LABS: A/G RATIO 0.7 (0.9-1.6); ALBUMIN 2.5 g/dL (3.4-5.0); BILIRUBIN TOTAL 0.8 mg/dL (0.2-1.0); CALCIUM 8.5 mg/dL (8.5-10.1); CARBON DIOXIDE,CO2 24.5 mmol/L (21.0-32.0); CREATININE 1.2 mg/dL (0.8-1.3); EST CRCL DRUG DOSING (CG) 42.83 mL/min; POTASSIUM,K 3.9 mmol/L (3.5-5.1); PROTEIN TOTAL,TP 6.1 g/dL (6.4-8.2)
[2022-10-09] MEDS: Docusate Sodium 100 MG Cap PO SCH ×2 (09:47→20:55)
[2022-10-09] MEDS: Rivastigmine Tartrate 1.5 MG Capsule PO SCH ×2 (09:48→20:56)
[2022-10-09] MEDS: Furosemide 20 MG Tab PO SCH (09:48)
[2022-10-09] MEDS: Enoxaparin 40 MG/0.4 ML Syringe SUBCUT SCH (13:35)
[2022-10-09] MEDS: Tamsulosin 0.4 MG Cap.ER PO SCH (20:55)
[2022-10-10] MEDS: oxyCODONE 5 MG Tab PO PRN (04:14)
[2022-10-10] MEDS: BUPIVACAINE TOP SCH ×3 (06:33→22:23)
[2022-10-10] MEDS: Omeprazole 20 MG Cap.CR PO SCH (06:33)
[2022-10-10] MEDS: KETAMINE TOP SCH ×3 (06:33→22:23)
[2022-10-10] MEDS: GABAPENTIN TOP SCH ×3 (06:33→22:23)
[2022-10-10] MEDS: BACLOFEN TOP SCH ×3 (06:33→22:23)
[2022-10-10] MEDS: Levothyroxine 25 MCG Tab PO SCH (06:34)
[2022-10-10] MEDS: Docusate Sodium 100 MG Cap PO SCH ×2 (08:19→20:48)
[2022-10-10] MEDS: Acetaminophen 325 MG Tab PO PRN ×3 (08:19→23:20)
[2022-10-10] MEDS: Rivastigmine Tartrate 1.5 MG Capsule PO SCH ×2 (08:26→20:49)
[2022-10-10] MEDS ORDERED: Cyclobenzaprine 5 MG Tab PO ONE (10:23)
[2022-10-10] MEDS: Enoxaparin 40 MG/0.4 ML Syringe SUBCUT SCH (12:59)
[2022-10-10] MEDS: Tamsulosin 0.4 MG Cap.ER PO SCH (20:49)
[2022-10-11] MEDS: Levothyroxine 25 MCG Tab PO SCH ×2 (06:19→06:40)
[2022-10-11] MEDS: Omeprazole 20 MG Cap.CR PO SCH ×2 (06:19→06:45)
[2022-10-11] MEDS: GABAPENTIN TOP SCH ×3 (06:20→21:39)
[2022-10-11] MEDS: BACLOFEN TOP SCH ×3 (06:20→21:39)
[2022-10-11] MEDS: KETAMINE TOP SCH ×3 (06:20→21:39)
[2022-10-11] MEDS: BUPIVACAINE TOP SCH ×3 (06:20→21:39)
[2022-10-11 07:39] LABS: BASOPHILS PERCENT AUTO 0.5 % (0.0-1.5); EOSINOPHILS ABSOLUTE AUTO 0.3 K/uL (0.0-0.7); EOSINOPHILS PERCENT AUTO 4.4 % (0.0-7.0); HEMATOCRIT 37.4 % (38.0-50.0); HEMOGLOBIN 12.6 g/dL (13.0-17.0); LYMPHOCYTES ABSOLUTE AUTO 1.2 K/uL (0.6-2.4); LYMPHOCYTES PERCENT AUTO 16.3 % (16.0-40.0); MEAN CORPUSCULAR HEMOGLOBIN 32.5 pg (27.0-32.0); MEAN CORPUSCULAR HGB CONC 33.7 g/dL (31.0-37.0); MEAN CORPUSCULAR VOLUME 96.4 fL (80.0-98.0); MONOCYTES ABSOLUTE AUTO 0.9 K/uL (0.0-0.8); MONOCYTES PERCENT AUTO 11.8 % (0.0-15.0); NRBC ABSOLUTE 0 K/uL; PLATELET COUNT,PLT 213 K/uL (150-400); RED BLOOD CELL COUNT 3.88 M/uL (4.50-5.90); WHITE BLOOD CELL COUNT,WBC 7.44 K/uL (4.0-11.0)
[2022-10-11 08:14] LABS: A/G RATIO 0.6 (0.9-1.6); ALBUMIN 2.2 g/dL (3.4-5.0); BILIRUBIN TOTAL 0.4 mg/dL (0.2-1.0); CALCIUM 8.5 mg/dL (8.5-10.1); CARBON DIOXIDE,CO2 24.9 mmol/L (21.0-32.0); CREATININE 1.3 mg/dL (0.8-1.3); EST CRCL DRUG DOSING (CG) 39.53 mL/min; POTASSIUM,K 3.9 mmol/L (3.5-5.1); PROTEIN TOTAL,TP 6.2 g/dL (6.4-8.2)
[2022-10-11] MEDS: Docusate Sodium 100 MG Cap PO SCH ×2 (08:26→21:38)
[2022-10-11] MEDS: Rivastigmine Tartrate 1.5 MG Capsule PO SCH ×2 (08:27→21:38)
[2022-10-11] MEDS: Furosemide 20 MG Tab PO SCH (10:49)
[2022-10-11] MEDS: Enoxaparin 40 MG/0.4 ML Syringe SUBCUT SCH (13:58)
[2022-10-11] MEDS: Acetaminophen 325 MG Tab PO PRN (18:49)
[2022-10-11] MEDS: Tamsulosin 0.4 MG Cap.ER PO SCH (21:38)
[2022-10-12] MEDS: Acetaminophen 325 MG Tab PO PRN ×2 (01:13→07:51)
[2022-10-12] MEDS: BUPIVACAINE TOP SCH (06:05)
[2022-10-12] MEDS: KETAMINE TOP SCH (06:05)
[2022-10-12] MEDS: Omeprazole 20 MG Cap.CR PO SCH ×2 (06:05→06:39)
[2022-10-12] MEDS: GABAPENTIN TOP SCH (06:05)
[2022-10-12] MEDS: BACLOFEN TOP SCH (06:05)
[2022-10-12] MEDS: Levothyroxine 25 MCG Tab PO SCH ×2 (06:05→06:39)
[2022-10-12 06:08] LABS: BASOPHILS PERCENT AUTO 0.6 % (0.0-1.5); EOSINOPHILS ABSOLUTE AUTO 0.3 K/uL (0.0-0.7); EOSINOPHILS PERCENT AUTO 4.5 % (0.0-7.0); HEMATOCRIT 39.2 % (38.0-50.0); HEMOGLOBIN 13.1 g/dL (13.0-17.0); LYMPHOCYTES ABSOLUTE AUTO 1.4 K/uL (0.6-2.4); LYMPHOCYTES PERCENT AUTO 21.2 % (16.0-40.0); MEAN CORPUSCULAR HEMOGLOBIN 32.3 pg (27.0-32.0); MEAN CORPUSCULAR HGB CONC 33.4 g/dL (31.0-37.0); MEAN CORPUSCULAR VOLUME 96.6 fL (80.0-98.0); MONOCYTES ABSOLUTE AUTO 0.6 K/uL (0.0-0.8); MONOCYTES PERCENT AUTO 9.1 % (0.0-15.0); NEUTROPHILS ABSOLUTE AUTO 4.3 K/uL (1.4-5.7); NEUTROPHILS PERCENT AUTO 64.6 % (48.0-80.0); NRBC ABSOLUTE 0 K/uL; PLATELET COUNT,PLT 270 K/uL (150-400); RED BLOOD CELL COUNT 4.06 M/uL (4.50-5.90); WHITE BLOOD CELL COUNT,WBC 6.61 K/uL (4.0-11.0)
[2022-10-12 06:28] LABS: A/G RATIO 0.6 (0.9-1.6); ALBUMIN 2.2 g/dL (3.4-5.0); BILIRUBIN TOTAL 0.3 mg/dL (0.2-1.0); CALCIUM 8.7 mg/dL (8.5-10.1); CARBON DIOXIDE,CO2 26.8 mmol/L (21.0-32.0); CREATININE 1.3 mg/dL (0.8-1.3); EST CRCL DRUG DOSING (CG) 39.53 mL/min; POTASSIUM,K 3.9 mmol/L (3.5-5.1); PROTEIN TOTAL,TP 6.1 g/dL (6.4-8.2)
[2022-10-12] MEDS: Docusate Sodium 100 MG Cap PO SCH (08:10)
[2022-10-12] MEDS: Rivastigmine Tartrate 1.5 MG Capsule PO SCH (08:10)
[2022-10-12] MEDS ORDERED: Acetaminophen 500 MG Tab PO PRN (08:37)
[2022-10-12 12:53] VITALS: BP 103/56; PULSE 71
[2022-10-12] MEDS: Enoxaparin 40 MG/0.4 ML Syringe SUBCUT SCH (13:10)
[2022-10-12] MEDS ORDERED: Acetaminophen 500 MG Tab PO SCH (21:00)
== END 2022-10-12 13:30 | DRG 556 ==
LOC: MW.ED 04:42 → MW.MS 11:27 → UNDOADMIN 12:10 → MW.MS 12:10 → UNDODISIN 10-12 13:30
PROVIDERS: ADMIT Hospitalist; ATTEND Hospitalist
DX: R26.2 Difficulty in walking, not elsewhere classified (principal); N17.9 Acute kidney failure, unspecified; G31.83 Neurocognitive disorder with Lewy bodies; F02.80 Dementia in other diseases classified elsewhere, unspecified severity, without behavioral disturbance, psychotic disturbance, mood disturbance, and anxiety; N40.1 Benign prostatic hyperplasia with lower urinary tract symptoms; E03.9 Hypothyroidism, unspecified; Z66 Do not resuscitate; E86.0 Dehydration; R33.8 Other retention of urine; N18.30 Chronic kidney disease, stage 3 unspecified; K59.09 Other constipation; D72.829 Elevated white blood cell count, unspecified; R53.81 Other malaise; W19.XXXA Unspecified fall, initial encounter; Z87.442 Personal history of urinary calculi; Z98.49 Cataract extraction status, unspecified eye; Z90.49 Acquired absence of other specified parts of digestive tract; Z79.890 Hormone replacement therapy; Z79.899 Other long term (current) drug therapy; Z98.890 Other specified postprocedural states
CPT/HCPCS: 36415; 51701; 51702; 70450; 70450-26; 71045; 71045-26; 71250; 71250-26; 73502-26-LT; 73502-LT; 73560-26-LT; 73560-LT; 80048; 80053; 81001; 82550; 83605; 84145; 84484; 85025; 85610; 87040; 93005; 93010; 96360; 97110-GP; 97163-GP; 99222; 99231; 99232; 99239; 99284; 99285-25; A9270-GY; J1650; J3490; J7030; U0002

== ENCOUNTER 2022-10-13 17:36 | Emergency (ER) | payer MEDICARE, OTHER ==
[2022-10-13 19:12] LABS: APPEARANCE,URINE SLT CLOUDY; BILIRUBIN,URINE NEGATIVE (NEGATIVE); COLOR,URINE YELLOW; GLUCOSE,URINE NEGATIVE (NEGATIVE); KETONES,URINE NEGATIVE (NEGATIVE); LEUKOCYTE ESTERASE,URINE TRACE (NEGATIVE); NITRITE,URINE NEGATIVE (NEGATIVE); OCCULT BLOOD,URINE LARGE (NEGATIVE); PROTEIN,URINE NEGATIVE (NEGATIVE); UROBILINOGEN,URINE 0.2 EU/dL (<2.0)
[2022-10-13 19:19] LABS: RBC,URINE 90-100 (0-2/HPF)
[2022-10-13 19:20] LABS: BACTERIA,URINE FEW (NEGATIVE); EPITHELIAL CELLS,URINE RARE (NONE-FEW); WBC,URINE 0-2 (0-5/HPF)
[2022-10-13 19:42] VITALS: BP 137/76; PULSE 82
== END 2022-10-13 19:41 ==
LOC: MW.ED 17:36
DX: Z46.6 Encounter for fitting and adjustment of urinary device (principal); N40.1 Benign prostatic hyperplasia with lower urinary tract symptoms; R33.8 Other retention of urine; E03.9 Hypothyroidism, unspecified; Z79.899 Other long term (current) drug therapy
CPT/HCPCS: 51702; 81001; 99282; 99284

== ENCOUNTER 2023-02-25 12:21 | Inpatient (IN) | payer MEDICARE, OTHER ==
[2023-02-25] MEDS ORDERED: Sodium Chloride 0.9% 2.5 ML Syringe FLUSH PRN ×2 (12:33→16:10)
[2023-02-25] MEDS ORDERED: Sodium Chloride 0.9% 10 ML Syringe FLUSH PRN ×2 (12:33→16:10)
[2023-02-25] MEDS ORDERED: fentaNYL 50 MCG/ML SDV IVPUSH ONE (12:35)
[2023-02-25] MEDS ORDERED: Ondansetron 4 MG/2 ML SDV IVPUSH ONE (12:35)
[2023-02-25] MEDS ORDERED: Naloxone 0.4 MG/ML SDV IVPUSH PRN ×2 (12:35→16:10)
[2023-02-25 13:07] LABS: BASOPHILS PERCENT AUTO 0.3 % (0.0-1.5); EOSINOPHILS ABSOLUTE AUTO 0.2 K/uL (0.0-0.7); EOSINOPHILS PERCENT AUTO 2.4 % (0.0-7.0); HEMATOCRIT 38.9 % (38.0-50.0); HEMOGLOBIN 12.8 g/dL (13.0-17.0); LYMPHOCYTES ABSOLUTE AUTO 1.3 K/uL (0.6-2.4); LYMPHOCYTES PERCENT AUTO 14.2 % (16.0-40.0); MEAN CORPUSCULAR HEMOGLOBIN 31.4 pg (27.0-32.0); MEAN CORPUSCULAR HGB CONC 32.9 g/dL (31.0-37.0); MEAN CORPUSCULAR VOLUME 95.3 fL (80.0-98.0); MONOCYTES ABSOLUTE AUTO 0.7 K/uL (0.0-0.8); MONOCYTES PERCENT AUTO 7.3 % (0.0-15.0); NEUTROPHILS ABSOLUTE AUTO 6.9 K/uL (1.4-5.7); NEUTROPHILS PERCENT AUTO 75.8 % (48.0-80.0); NRBC ABSOLUTE 0 K/uL; NRBC PERCENT 0.2 /100WBC; PLATELET COUNT,PLT 199 K/uL (150-400); RED BLOOD CELL COUNT 4.08 M/uL (4.50-5.90); WHITE BLOOD CELL COUNT,WBC 9.15 K/uL (4.0-11.0)
[2023-02-25 13:25] LABS: INR 1.07 (0.86-1.11)
[2023-02-25 13:30] LABS: A/G RATIO 1.1 (0.9-1.6); ALBUMIN 3.4 g/dL (3.4-5.0); BILIRUBIN TOTAL 0.3 mg/dL (0.2-1.0); CARBON DIOXIDE,CO2 22.4 mmol/L (21.0-32.0); CREATININE 1.8 mg/dL (0.8-1.3); EST CRCL DRUG DOSING (CG) 28.55 mL/min; POTASSIUM,K 4.3 mmol/L (3.5-5.1); PROTEIN TOTAL,TP 6.6 g/dL (6.4-8.2)
[2023-02-25] MEDS ORDERED: Morphine 2 MG/ML SYRINGE IVPUSH ONE ×2 (13:53→16:36)
[2023-02-25] MEDS ORDERED: Polyethylene Glycol 3350 Powder 17 GM Packet PO PRN (16:10)
[2023-02-25] MEDS ORDERED: Docusate Sodium 100 MG Cap PO PRN (16:10)
[2023-02-25] MEDS ORDERED: Acetaminophen 325 MG Tab PO PRN (16:10)
[2023-02-25] MEDS ORDERED: Ondansetron 4 MG/2 ML SDV IVPUSH PRN (16:10)
[2023-02-25] MEDS ORDERED: Sodium Chloride 0.9% 1,000 ML IV SCH (16:15)
[2023-02-25] MEDS: Pantoprazole 40 MG in Sodium Chloride 0.9% 10 ML IVPUSH SCH (17:17)
[2023-02-25] MEDS ORDERED: HYDROmorphone 1 MG/ML Syringe IVPUSH ONE (18:09)
[2023-02-25] MEDS ORDERED: HYDROmorphone 1 MG/ML Syringe ONE (18:19)
[2023-02-25] MEDS: Cyclobenzaprine 5 MG Tab PO PRN (18:25)
[2023-02-25] MEDS: Morphine 2 MG/ML SYRINGE IVPUSH PRN ×2 (19:52→22:30)
[2023-02-26] MEDS: Morphine 2 MG/ML SYRINGE IVPUSH PRN ×3 (00:39→11:29)
[2023-02-26 06:15] LABS: BASOPHILS PERCENT AUTO 0.2 % (0.0-1.5); EOSINOPHILS ABSOLUTE AUTO 0.3 K/uL (0.0-0.7); HEMATOCRIT 36.6 % (38.0-50.0); HEMOGLOBIN 12.2 g/dL (13.0-17.0); LYMPHOCYTES ABSOLUTE AUTO 0.9 K/uL (0.6-2.4); LYMPHOCYTES PERCENT AUTO 9.5 % (16.0-40.0); MEAN CORPUSCULAR HEMOGLOBIN 31.6 pg (27.0-32.0); MEAN CORPUSCULAR HGB CONC 33.3 g/dL (31.0-37.0); MEAN CORPUSCULAR VOLUME 94.8 fL (80.0-98.0); MONOCYTES ABSOLUTE AUTO 1.1 K/uL (0.0-0.8); MONOCYTES PERCENT AUTO 11.3 % (0.0-15.0); NEUTROPHILS ABSOLUTE AUTO 7.4 K/uL (1.4-5.7); NRBC ABSOLUTE 0 K/uL; PLATELET COUNT,PLT 167 K/uL (150-400); RED BLOOD CELL COUNT 3.86 M/uL (4.50-5.90); WHITE BLOOD CELL COUNT,WBC 9.68 K/uL (4.0-11.0)
[2023-02-26 06:29] LABS: CALCIUM 8.2 mg/dL (8.5-10.1); CREATININE 1.5 mg/dL (0.8-1.3); EST CRCL DRUG DOSING (CG) 34.26 mL/min; MAGNESIUM 1.9 mg/dL (1.8-2.4); PHOSPHORUS 2.9 mg/dL (2.6-4.7); POTASSIUM,K 4.6 mmol/L (3.5-5.1)
[2023-02-26] MEDS: Cyclobenzaprine 5 MG Tab PO PRN ×2 (06:30→20:15)
[2023-02-26] MEDS: Pantoprazole 40 MG in Sodium Chloride 0.9% 10 ML IVPUSH SCH (06:32)
[2023-02-26] MEDS ORDERED: Propofol 200 MG/20 ML SDV ONE (09:56)
[2023-02-26] MEDS ORDERED: fentaNYL 250 MCG/5 ML SDV ONE (09:56)
[2023-02-26] MEDS ORDERED: HYDROmorphone 1 MG/ML Syringe IVPUSH PRN (10:19)
[2023-02-26] MEDS ORDERED: Ondansetron 4 MG/2 ML SDV IVPUSH PRN (10:19)
[2023-02-26] MEDS ORDERED: Metoclopramide 10 MG/2 ML SDV IVPUSH PRN (10:19)
[2023-02-26] MEDS ORDERED: Naloxone 0.4 MG/ML SDV IVPUSH PRN (10:19)
[2023-02-26] MEDS ORDERED: droPERidol 5 MG/2 ML SDV IVPUSH PRN (10:19)
[2023-02-26] MEDS ORDERED: Morphine 2 MG/ML SYRINGE IVPUSH PRN (10:19)
[2023-02-26] MEDS ORDERED: Albuterol 0.083% 2.5 MG/3 ML Neb Soln NEB PRN (10:19)
[2023-02-26] MEDS ORDERED: fentaNYL 50 MCG/ML SDV IVPUSH PRN (10:19)
[2023-02-26] MEDS ORDERED: Ropivacaine 0.5% 5 MG/ML 30 ML SDV ONE (11:31)
[2023-02-26] MEDS ORDERED: Morphine PF 10 MG/10 ML SDV ONE (11:31)
[2023-02-26] MEDS ORDERED: Water For Injection, Sterile 20 ML ONE (11:50)
[2023-02-26] MEDS ORDERED: ceFAZolin 2 GM in Sodium Chloride 0.9% 50 ML IV ONE (12:00)
[2023-02-26] MEDS ORDERED: ceFAZolin 2 GM Vial ONE (12:40)
[2023-02-26] MEDS ORDERED: Glycopyrrolate 0.2 MG/ML SDV ONE (12:56)
[2023-02-26] MEDS ORDERED: ePHEDrine 50 MG/ML SDV ONE (12:56)
[2023-02-26] MEDS ORDERED: Phenylephrine HCl 0.5 MG/5 ML AMP ONE (12:56)
[2023-02-26] MEDS ORDERED: oxyCODONE 5 MG Tab PO PRN (14:31)
[2023-02-26] MEDS: Acetaminophen 325 MG Tab PO SCH ×2 (16:41→20:36)
[2023-02-26] MEDS: traMADol 50 MG Tab PO PRN (16:42)
[2023-02-26] MEDS: oxyCODONE 5 MG Tab PO PRN (20:16)
[2023-02-26] MEDS: ceFAZolin 2 GM in Sodium Chloride 0.9% 50 ML IV SCH (20:18)
[2023-02-26] MEDS: Aspirin 325 MG Tab PO SCH (20:36)
[2023-02-27] MEDS: Acetaminophen 325 MG Tab PO SCH ×6 (02:00→21:53)
[2023-02-27] MEDS: ceFAZolin 2 GM in Sodium Chloride 0.9% 50 ML IV SCH (04:07)
[2023-02-27 06:27] LABS: BASOPHILS PERCENT AUTO 0.2 % (0.0-1.5); EOSINOPHILS ABSOLUTE AUTO 0.4 K/uL (0.0-0.7); EOSINOPHILS PERCENT AUTO 4.4 % (0.0-7.0); HEMOGLOBIN 9.8 g/dL (13.0-17.0); LYMPHOCYTES PERCENT AUTO 10.1 % (16.0-40.0); MEAN CORPUSCULAR HEMOGLOBIN 30.8 pg (27.0-32.0); MEAN CORPUSCULAR HGB CONC 31.6 g/dL (31.0-37.0); MEAN CORPUSCULAR VOLUME 97.5 fL (80.0-98.0); MONOCYTES ABSOLUTE AUTO 1.3 K/uL (0.0-0.8); MONOCYTES PERCENT AUTO 13.2 % (0.0-15.0); NEUTROPHILS ABSOLUTE AUTO 7.2 K/uL (1.4-5.7); NEUTROPHILS PERCENT AUTO 72.1 % (48.0-80.0); NRBC ABSOLUTE 0 K/uL; PLATELET COUNT,PLT 149 K/uL (150-400); RED BLOOD CELL COUNT 3.18 M/uL (4.50-5.90); WHITE BLOOD CELL COUNT,WBC 9.95 K/uL (4.0-11.0)
[2023-02-27 06:32] LABS: A/G RATIO 0.8 (0.9-1.6); ALBUMIN 2.4 g/dL (3.4-5.0); BILIRUBIN TOTAL 0.3 mg/dL (0.2-1.0); CALCIUM 7.7 mg/dL (8.5-10.1); CARBON DIOXIDE,CO2 25.7 mmol/L (21.0-32.0); CREATININE 1.9 mg/dL (0.8-1.3); EST CRCL DRUG DOSING (CG) 27.05 mL/min; POTASSIUM,K 4.6 mmol/L (3.5-5.1); PROTEIN TOTAL,TP 5.6 g/dL (6.4-8.2)
[2023-02-27] MEDS: Pantoprazole 40 MG in Sodium Chloride 0.9% 10 ML IVPUSH SCH (07:53)
[2023-02-27] MEDS: Aspirin 325 MG Tab PO SCH (09:30)
[2023-02-27] MEDS ORDERED: Enoxaparin 30 MG/0.3 ML Syringe SUBCUT SCH (10:00)
[2023-02-27] MEDS: Cyclobenzaprine 5 MG Tab PO PRN (11:04)
[2023-02-27] MEDS: traMADol 50 MG Tab PO PRN (11:05)
[2023-02-27] MEDS: Enoxaparin 30 MG/0.3 ML Syringe SUBCUT SCH (13:01)
[2023-02-28] MEDS: Acetaminophen 325 MG Tab PO SCH ×7 (00:25→20:22)
[2023-02-28] MEDS: oxyCODONE 5 MG Tab PO PRN ×2 (00:25→20:24)
[2023-02-28 06:50] LABS: BASOPHILS PERCENT AUTO 0.4 % (0.0-1.5); EOSINOPHILS ABSOLUTE AUTO 0.7 K/uL (0.0-0.7); EOSINOPHILS PERCENT AUTO 6.6 % (0.0-7.0); HEMATOCRIT 28.6 % (38.0-50.0); HEMOGLOBIN 9.5 g/dL (13.0-17.0); LYMPHOCYTES ABSOLUTE AUTO 1.3 K/uL (0.6-2.4); LYMPHOCYTES PERCENT AUTO 12.2 % (16.0-40.0); MEAN CORPUSCULAR HEMOGLOBIN 32.2 pg (27.0-32.0); MEAN CORPUSCULAR HGB CONC 33.2 g/dL (31.0-37.0); MEAN CORPUSCULAR VOLUME 96.9 fL (80.0-98.0); MONOCYTES ABSOLUTE AUTO 1.4 K/uL (0.0-0.8); MONOCYTES PERCENT AUTO 12.7 % (0.0-15.0); NEUTROPHILS ABSOLUTE AUTO 7.2 K/uL (1.4-5.7); NEUTROPHILS PERCENT AUTO 68.1 % (48.0-80.0); NRBC ABSOLUTE 0 K/uL; PLATELET COUNT,PLT 145 K/uL (150-400); RED BLOOD CELL COUNT 2.95 M/uL (4.50-5.90); WHITE BLOOD CELL COUNT,WBC 10.61 K/uL (4.0-11.0)
[2023-02-28] MEDS: Pantoprazole 40 MG in Sodium Chloride 0.9% 10 ML IVPUSH SCH (07:20)
[2023-02-28 07:21] LABS: A/G RATIO 0.7 (0.9-1.6); ALBUMIN 2.4 g/dL (3.4-5.0); BILIRUBIN TOTAL 0.3 mg/dL (0.2-1.0); CALCIUM 8.2 mg/dL (8.5-10.1); CREATININE 2.1 mg/dL (0.8-1.3); EST CRCL DRUG DOSING (CG) 24.47 mL/min; POTASSIUM,K 4.7 mmol/L (3.5-5.1); PROTEIN TOTAL,TP 5.9 g/dL (6.4-8.2)
[2023-02-28] MEDS: Cyclobenzaprine 5 MG Tab PO PRN ×2 (09:08→16:50)
[2023-02-28] MEDS: traMADol 50 MG Tab PO PRN (09:14)
[2023-02-28] MEDS: Enoxaparin 30 MG/0.3 ML Syringe SUBCUT SCH (13:14)
[2023-02-28] MEDS ORDERED: Sodium Chloride 0.9% 500 ML IV SCH ×5 (16:30→21:00)
[2023-03-01] MEDS: Acetaminophen 325 MG Tab PO SCH ×6 (01:05→20:27)
[2023-03-01] MEDS: Pantoprazole 40 MG in Sodium Chloride 0.9% 10 ML IVPUSH SCH ×2 (05:51→06:40)
[2023-03-01 06:00] LABS: BASOPHILS PERCENT AUTO 0.4 % (0.0-1.5); EOSINOPHILS ABSOLUTE AUTO 0.6 K/uL (0.0-0.7); EOSINOPHILS PERCENT AUTO 5.9 % (0.0-7.0); HEMATOCRIT 27.8 % (38.0-50.0); HEMOGLOBIN 8.9 g/dL (13.0-17.0); LYMPHOCYTES ABSOLUTE AUTO 1.1 K/uL (0.6-2.4); LYMPHOCYTES PERCENT AUTO 11.9 % (16.0-40.0); MEAN CORPUSCULAR HEMOGLOBIN 31.2 pg (27.0-32.0); MEAN CORPUSCULAR VOLUME 97.5 fL (80.0-98.0); MONOCYTES PERCENT AUTO 10.9 % (0.0-15.0); NEUTROPHILS ABSOLUTE AUTO 6.7 K/uL (1.4-5.7); NEUTROPHILS PERCENT AUTO 70.9 % (48.0-80.0); NRBC ABSOLUTE 0 K/uL; PLATELET COUNT,PLT 186 K/uL (150-400); RED BLOOD CELL COUNT 2.85 M/uL (4.50-5.90); WHITE BLOOD CELL COUNT,WBC 9.49 K/uL (4.0-11.0)
[2023-03-01 06:26] LABS: CALCIUM 8.3 mg/dL (8.5-10.1); CARBON DIOXIDE,CO2 23.8 mmol/L (21.0-32.0); CREATININE 1.6 mg/dL (0.8-1.3); EST CRCL DRUG DOSING (CG) 32.12 mL/min; POTASSIUM,K 4.3 mmol/L (3.5-5.1)
[2023-03-01] MEDS: Cyclobenzaprine 5 MG Tab PO PRN (09:04)
[2023-03-01] MEDS ORDERED: Tamsulosin 0.4 MG Cap.ER PO ONE (09:20)
[2023-03-01] MEDS: oxyCODONE 5 MG Tab PO PRN ×2 (11:06→18:53)
[2023-03-01] MEDS ORDERED: Enoxaparin 40 MG/0.4 ML Syringe SUBCUT SCH (13:00)
[2023-03-01] MEDS: traMADol 50 MG Tab PO PRN (13:45)
[2023-03-01] MEDS ORDERED: Tamsulosin 0.4 MG Cap.ER PO SCH (21:00)
[2023-03-02] MEDS: Acetaminophen 325 MG Tab PO SCH ×3 (00:15→08:32)
[2023-03-02] MEDS: Cyclobenzaprine 5 MG Tab PO PRN ×2 (00:16→08:33)
[2023-03-02] MEDS: traMADol 50 MG Tab PO PRN ×2 (03:42→09:44)
[2023-03-02 06:02] LABS: BASOPHILS ABSOLUTE AUTO 0.1 K/uL (0.0-0.1); BASOPHILS PERCENT AUTO 0.7 % (0.0-1.5); EOSINOPHILS ABSOLUTE AUTO 0.5 K/uL (0.0-0.7); EOSINOPHILS PERCENT AUTO 6.2 % (0.0-7.0); HEMATOCRIT 24.5 % (38.0-50.0); HEMOGLOBIN 7.9 g/dL (13.0-17.0); LYMPHOCYTES ABSOLUTE AUTO 1.2 K/uL (0.6-2.4); LYMPHOCYTES PERCENT AUTO 15.2 % (16.0-40.0); MEAN CORPUSCULAR HEMOGLOBIN 31.1 pg (27.0-32.0); MEAN CORPUSCULAR HGB CONC 32.2 g/dL (31.0-37.0); MEAN CORPUSCULAR VOLUME 96.5 fL (80.0-98.0); MONOCYTES ABSOLUTE AUTO 0.9 K/uL (0.0-0.8); MONOCYTES PERCENT AUTO 11.3 % (0.0-15.0); NEUTROPHILS ABSOLUTE AUTO 5.1 K/uL (1.4-5.7); NEUTROPHILS PERCENT AUTO 66.6 % (48.0-80.0); NRBC ABSOLUTE 0 K/uL; PLATELET COUNT,PLT 207 K/uL (150-400); RED BLOOD CELL COUNT 2.54 M/uL (4.50-5.90); WHITE BLOOD CELL COUNT,WBC 7.59 K/uL (4.0-11.0)
[2023-03-02] MEDS: Pantoprazole 40 MG Tab.CR PO SCH ×2 (06:18→07:31)
[2023-03-02] MEDS: Levothyroxine 25 MCG Tab PO SCH ×2 (06:18→07:31)
[2023-03-02 06:48] LABS: CALCIUM 8.1 mg/dL (8.5-10.1); CARBON DIOXIDE,CO2 24.2 mmol/L (21.0-32.0); CREATININE 1.7 mg/dL (0.8-1.3); EST CRCL DRUG DOSING (CG) 30.23 mL/min; POTASSIUM,K 4.3 mmol/L (3.5-5.1)
[2023-03-02 10:55] VITALS: BP 130/90; PULSE 87
== END 2023-03-02 10:30 | DRG 481 ==
LOC: MW.ED 12:21 → MW.MS 16:06
PROVIDERS: ADMIT Family Medicine; ATTEND Family Medicine
PROC: 0QS704Z Reposition Left Upper Femur with Internal Fixation Device, Open Approach (ICD-10-PCS; principal; 2023-02-26)
DX: S72.142A Displaced intertrochanteric fracture of left femur, initial encounter for closed fracture (principal); G91.2 (Idiopathic) normal pressure hydrocephalus; N17.9 Acute kidney failure, unspecified; E03.9 Hypothyroidism, unspecified; N40.0 Benign prostatic hyperplasia without lower urinary tract symptoms; K21.9 Gastro-esophageal reflux disease without esophagitis; Z66 Do not resuscitate; F41.9 Anxiety disorder, unspecified; R26.2 Difficulty in walking, not elsewhere classified; N18.9 Chronic kidney disease, unspecified; G31.83 Neurocognitive disorder with Lewy bodies; F02.80 Dementia in other diseases classified elsewhere, unspecified severity, without behavioral disturbance, psychotic disturbance, mood disturbance, and anxiety; K59.09 Other constipation; Z87.442 Personal history of urinary calculi; Z98.890 Other specified postprocedural states; Z98.49 Cataract extraction status, unspecified eye; Z90.89 Acquired absence of other organs; Z79.899 Other long term (current) drug therapy; W01.0XXA Fall on same level from slipping, tripping and stumbling without subsequent striking against object, initial encounter; Y92.009 Unspecified place in unspecified non-institutional (private) residence as the place of occurrence of the external cause
CPT/HCPCS: 01230; 36415; 51701; 51702; 51798; 64450; 70450; 70450-26; 71045; 71045-26; 72125; 72125-26; 73110-26-LT; 73110-LT; 73502-26-LT; 73502-LT; 76000; 80048; 80053; 83690; 83735; 84100; 84484; 85025; 85610; 85730; 93005; 93010; 96374; 96375; 97110-GP; 97162-GP; 97530-GP; 99100; 99285; 99285-25; A9270-GY; C9113; J0690; J1170; J1650; J2270; J2274; J2371; J2405; J2704; J2795; J3010; J3490; J7030; J7040

== ENCOUNTER 2024-06-04 11:27 | Emergency (ER) | payer MEDICARE, OTHER ==
[2024-06-04 11:57] VITALS: BP 158/92; PULSE 75
[2024-06-04 12:02] LABS: BASOPHILS ABSOLUTE AUTO 0.05 K/uL (0.00-0.20); BASOPHILS PERCENT AUTO 0.6 % (0.0-1.0); EOSINOPHILS PERCENT AUTO 3.4 % (0.0-6.0); HEMATOCRIT 40.1 % (42.0-52.0); HEMOGLOBIN 13.5 g/dL (14.0-18.0); IMMATURE GRAN ABSOLUTE AUTO 0.02 K/uL (0.00-0.05); IMMATURE GRAN PERCENT AUTO 0.2 % (0.0-0.4); LYMPHOCYTES ABSOLUTE AUTO 1.32 K/uL (1.00-4.80); MEAN CORPUSCULAR HEMOGLOBIN 33.4 pg (28.0-32.0); MEAN CORPUSCULAR HGB CONC 33.7 g/dL (32.0-36.0); MEAN CORPUSCULAR VOLUME 99.3 fL (83.0-99.0); MEAN PLATELET VOLUME 8.8 fL (9.4-12.4); MONOCYTES ABSOLUTE AUTO 0.69 K/uL (0.00-0.80); MONOCYTES PERCENT AUTO 7.8 % (0.0-8.0); NEUTROPHILS ABSOLUTE AUTO 6.41 K/uL (1.80-7.70); PLATELET COUNT,PLT 205 K/uL (150-400); RED BLOOD CELL COUNT 4.04 M/uL (4.52-5.90); WHITE BLOOD CELL COUNT,WBC 8.79 K/uL (3.9-11.3)
[2024-06-04 12:21] LABS: A/G RATIO 1.1 (0.9-1.6); ALBUMIN 3.5 g/dL (3.4-5.0); BILIRUBIN TOTAL 0.3 mg/dL (0.2-1.0); CALCIUM 8.7 mg/dL (8.5-10.1); CARBON DIOXIDE,CO2 26.6 mmol/L (21.0-32.0); CREATININE 1.4 mg/dL (0.8-1.3); EST CRCL DRUG DOSING (CG) 37.38 mL/min; POTASSIUM,K 4.2 mmol/L (3.5-5.1); PROTEIN TOTAL,TP 6.8 g/dL (6.4-8.2)
[2024-06-04] MEDS: Diphtheria,Pertussis(Acell),Tetanus Vaccine 0.5 ML Syringe IM ONE (12:41)
[2024-06-04 13:48] LABS: APPEARANCE,URINE SLT CLOUDY; BILIRUBIN,URINE NEGATIVE (NEGATIVE); COLOR,URINE YELLOW; GLUCOSE,URINE NEGATIVE (NEGATIVE); KETONES,URINE NEGATIVE (NEGATIVE); LEUKOCYTE ESTERASE,URINE MODERATE (NEGATIVE); NITRITE,URINE NEGATIVE (NEGATIVE); OCCULT BLOOD,URINE NEGATIVE (NEGATIVE); PH,URINE 5.5 (5.0-8.0); PROTEIN,URINE NEGATIVE (NEGATIVE); UROBILINOGEN,URINE 0.2 EU/dL (<2.0)
[2024-06-04 14:07] LABS: BACTERIA,URINE 3+ (NEGATIVE); EPITHELIAL CELLS,URINE OCCASIONAL (NONE-FEW); RBC,URINE 0-1 (0-2/HPF); WBC,URINE 50-60 (0-5/HPF)
== END 2024-06-04 15:23 | disposition home or self-care (01) ==
LOC: MW.ED 11:27
DX: S00.83XA Contusion of other part of head, initial encounter (principal); S00.31XA Abrasion of nose, initial encounter; N39.0 Urinary tract infection, site not specified; K21.9 Gastro-esophageal reflux disease without esophagitis; Z79.899 Other long term (current) drug therapy; Z23 Encounter for immunization; Z90.49 Acquired absence of other specified parts of digestive tract; W19.XXXA Unspecified fall, initial encounter
CPT/HCPCS: 36415; 70450; 70450-26; 71045; 71045-26; 72125; 72125-26; 73030-26-RT; 73030-RT; 80053; 81001; 82550; 83735; 85025; 90471; 90715; 93005; 99284-25

== ENCOUNTER 2024-08-29 20:40 | Emergency (ER) | payer MEDICARE, OTHER ==
[2024-08-29] MEDS: HYDROmorphone 0.5 MG/0.5 ML Syringe IM ONE (21:52)
[2024-08-30] MEDS: HYDROmorphone 0.5 MG/0.5 ML Syringe IM ONE (01:18)
[2024-08-30 01:46] VITALS: BP 106/73; PULSE 82
== END 2024-08-30 01:46 ==
LOC: MW.ED 20:40
DX: S32.9XXA Fracture of unspecified parts of lumbosacral spine and pelvis, initial encounter for closed fracture (principal); Z90.49 Acquired absence of other specified parts of digestive tract; W19.XXXA Unspecified fall, initial encounter
CPT/HCPCS: 72100; 72100-26; 73502-26-LT; 73502-LT; 73552-26-LT; 73552-LT; 96372; 99282; 99284